=== PATIENT | female | born 1970 | race Caucasian/White ===

== ENCOUNTER 2019-12-01 15:30 | Outpatient (RCR) | payer OTHER, SELFPAY | END 2020-01-02 10:37 | disposition home or self-care (01) | LOC: PT.CARL 15:30 | PROVIDERS: PCP Internal Medicine Adolescent Medicine; Visit Provider Nurse Practitioner Family | DX: M54.16 Radiculopathy, lumbar region (principal) | CPT/HCPCS: 97010; 97014; 97110; 97140; 97163; G0283 ==

== ENCOUNTER 2022-07-02 13:00 | Outpatient (RCR) | payer OTHER, SELFPAY | END 2022-07-31 09:52 | disposition home or self-care (01) | LOC: PT.CARL 13:00 | PROVIDERS: PCP Internal Medicine Adolescent Medicine; Visit Provider Orthopaedic Surgery | DX: S60.212A Contusion of left wrist, initial encounter (principal); M66.242 Spontaneous rupture of extensor tendons, left hand; M25.532 Pain in left wrist | CPT/HCPCS: 97010; 97014; 97033; 97110; 97163; 97164; G0283 ==

== ENCOUNTER 2023-10-24 13:05 | Emergency (ER) | payer OTHER, SELFPAY ==
[2023-10-24 13:08] VITALS: BP 147/84; PULSE 74; RESP 16; TEMP 36.9; O2SAT 100; BMI 36.9
--- NOTE | 2023-10-24 13:16 | XR_ITS ---
PROCEDURE INFORMATION: Exam: XR Left Hand Exam date and time: 10/24/2023 1:16 PM Age: 52 years old Clinical indication: Pain; Hand; Left; Additional info: Injury TECHNIQUE: Imaging protocol: Radiologic exam of the left hand. Views: 1 or 2 views. COMPARISON: CR XR FOREARM LT 2V 10/24/2023 1:16 PM FINDINGS: Bones/joints: Status post ORIF distal radius. Hardware appears intact. Soft tissues: Normal. IMPRESSION: Intact ORIF. No evidence of acute injury or hardware failure.
--- NOTE | 2023-10-24 13:16 | XR_ITS ---
PROCEDURE INFORMATION: Exam: XR Left Forearm Exam date and time: 10/24/2023 1:16 PM Age: 52 years old Clinical indication: Pain; Lower or forearm; Left; Additional info: Injury TECHNIQUE: Imaging protocol: Radiologic exam of the left forearm. Views: 2 views. COMPARISON: CR XR HAND LT 2V 10/24/2023 1:16 PM FINDINGS: Bones/joints: Status post ORIF distal radius. Hardware appears intact. Soft tissues: Normal. IMPRESSION: Intact ORIF. No evidence of acute injury or hardware failure.
--- NOTE | 2023-10-24 13:26 | ED_ITS ---
Discharge Plan Disposition Patient Disposition: Home, Self-Care Condition: Good Prescriptions Prescriptions: New prednisone 20 mg tablet 40 mg PO DAILY 5 Days Qty: 10 0RF Referrals Follow up/Referrals: Taqueria Spencer DO [Staff Physician] - See instructions (L wrist) Provider,Referral, [Referring] - See instructions Activity Restrictions/Add. Instructions Additional Instructions/Restrictions: You were evaluated in the ER for left wrist pain. You do not have any bony injury. You have been provided a removable splint, you can take this off to shower or bathe, otherwise wear it for support. Dr. Rsoas office will contact you for an appointment. Follow-up with them as directed for reevaluation. Take the prescribed steroids as directed for the next 5 days. Continue taking all o ther home medications as previously prescribed. Also make an appointment to follow-up with your primary care physician. Return to the ER with any new, worsening, or otherwise concerning symptoms Clinical Impressions Clinical Impression: Left wrist pain Discharge ED Provider: Agatha Hunt Adult HPI General Chief complaint: PAIN Stated complaint: AO 10/24/23 1215 Injury left Hand,wrist,fingers Time Seen by Provider: 10/24/23 13:10 Mode of Arrival: Ambulatory Source of Information: Patient Limitations: No Limitations Description of Symptoms (Recalled from ER Triage Doc. by RN): pt presents to ED c/o left wrist/hand pain after injury that happened this date. 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 History of Present Illness HPI narrative: This 52-year-old female with a history of hypertension and migraines presents to the ER with concerns of left wrist pain and hand pain. 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 She does have history of prior orthopedic surgery on the left wrist. Patient states she has not taken anything for pain. She endorses slightly decreased sensation at the tip of her left ring finger but otherwise normal sensation throughout. She is able to start making a fist but cannot fully close her hand at this time secondary to pain Related Data Previous Rx's Medication Instructions Recorded prednisone 20 mg tablet 40 mg PO DAILY 5 days #10 tabs 10/24/23 Allergies Allergy/AdvReac Type Severity Reaction Status Date / Time ciprofloxacin [From Cipro] Allergy Verified 10/24/23 13:17 vancomycin Allergy Verified 10/24/23 13:17 [facility] Disclaimer: The information contained in this section may have been updated after the patient was seen, as this information can be updated by other users. Social History Smoking Status: Current every day smoker alcohol intake: never current occupational status: other Travel in the last 8 weeks: None ROS Obtained: Yes All systems reviewed & no additional complaints except as documented Constitutional Constitutional: Denies chills, Denies fever(s), Denies headache(s) and Denies weakness Eyes Eyes: Denies change in vision ENT Ears, Nose, Mouth, and Throat: Denies dizziness, Denies headache(s), Denies nasal congestion and Denies sore throat Cardiovascular Cardiovascular: Denies chest pain, Denies dyspnea and Denies leg edema Respiratory Respiratory: Denies cough and Denies dyspnea Gastrointestinal Gastrointestingal: Denies constipation, diarrhea, nausea or vomiting Genitourinary Female Genitourinary: Denies dysuria Musculoskeletal Musculoskeletal: Reports arthralgias, Denies myalgias, Reports numbness and Denies tingling Integumentary/Breasts Skin/Breast: Denies change in pigmentation Neurologic Neurologic: Denies dizziness, Denies headache(s), Reports numbness, Denies tingling and Denies weakness Physical Exam General General appearance: alert and in no apparent distress Head Head exam: atraumatic and normocephalic Eye Eye exam: Present PERRL and EOMI ENT ENT exam: Present mucous membranes moist Neck Neck exam: Present normal inspection and full ROM Chest Chest inspection: Present symmetric chest wall rise Respiratory Respiratory exam: Absent respiratory distress or stridor Cardiovascular Cardiovascular exam: Present regular rate and normal rhythm Extremities Exam Extremities exam: Present tenderness (Tenderness to palpation of the left wrist and left fingers on the palmar aspect, there is bony protrusion on the ulnar aspect of the wrist with palpable ulnar pulse, brisk capillary refill, neurovascularly intact distally) and other (Patient is able to start closing her hand into a fist but not able to fully close it, sensation intact throughout though slightly diminished at the tip of the left ring finger) Neurological Exam Neurological exam: Present alert and oriented X3 Psychiatric Psychiatric exam: Present normal affect and normal mood Skin Skin exam: Present warm and dry Medical Decision Making Frank Inquiry Pt receiving controlled substance: No Vital Signs: 10/24/23 13:08 10/24/23 13:54 Temperature 98.4 F Temperature Source Oral Pulse Rate 75 Pulse Rate [Right] 74 Respiratory Rate 16 18 Blood Pressure 131/86 Blood Pressure [Right Arm] 147/84 H Blood Pressure Mean 111 Blood Pressure Mean [Right Arm] 105 Blood Pressure Source [Right Arm] Automatic Cuff Blood Pressure Position [Right Arm] Sitting 02 Sat by Pulse Oximetry 100 99 Oxygen Delivery Method Room Air Orders (Tests/Meds): ED MEDICATIONS Discontinued Medications Generic Name Dose Route Start Last Admin Trade Name Edith PRN Reason Stop Dose Admin Acetaminophen 1,000 mg 10/24/23 13:31 10/24/23 13:33 Acetaminophen 500mg Tab PO 10/24/23 13:32 1,000 mg ONCE ONE Administration Ibuprofen 600 mg 10/24/23 13:31 10/24/23 13:33 Ibuprofen 600 Mg Tablet PO 10/24/23 13:32 600 mg ONCE ONE Administration ORDERS Category Date Time Status Forearm XR left 2 views [XR forearm LT 2V] Stat Exams 10/24/23 13:16 Completed XR hand LT 2V Stat Exams 10/24/23 13:16 Completed Medical Decision Narrative: In summary, this 52year old female with a history of hypertension and migraine headaches which are comorbidities of current condition and increase her overall morbidity presents to the emergency department today with left hand and wrist pain after an injury while loading tires. On initial evaluation patient is hemodynamically stable, afebrile, she has pain in the left hand and wrist as described in the physical exam that she is grossly neurovascularly intact. Differential diagnosis includes but is not limited to fracture, dislocation, DRUJ disruption, sprain. Based on these concerns, I ordered x-ray imaging of the left upper extremity. Patient received Tylenol, ibuprofen for treatment. X-ray personally interpreted does not demonstrate any acute fracture, intact hardware present. DRUJ appears questionably slightly wide. See radiology read for final interpretation. Given patient's clinical appearance of prominent ulna in the left wrist with pain and questionably widened DRUJ, I called Dr. Spencer and discussed this with him. We reviewed the x-rays together and he believes this is likely sequela of her prior surgery but given she has acute pain recommended a removable volar splint which was provided to the patient. He also recommended steroids for the paresthesias she is having in her left ring finger. He believes this is likely a stretch injury to the median nerve. Patient is comfortable with this plan. She was provided referral to Dr. Spencer for follow-up. I prescribed prednisone burst. Patient was given instructions on symptomatic management, follow up instructions, and return precautions for the emergency department. Patient indicated understanding and was discharged in stable condition. Critical Care Critical Care Time Critical Care Time: No
[2023-10-24] MEDS: ACETAMINOPHEN 500MG TAB 1000 MG PO (13:33)
[2023-10-24] MEDS: IBUPROFEN 600 MG TABLET PO (13:33)
[2023-10-24 13:54] VITALS: BP 131/86; PULSE 75; RESP 18; O2SAT 99
--- NOTE | 2023-10-24 13:54 | PC.NURSE ---
DR RATLIFF SPEAKING WITH DR CASTANO
[2023-10-24 14:06] VITALS: BP 138/93; PULSE 67; RESP 18; TEMP 36.9; O2SAT 98
== END 2023-10-24 14:08 | disposition home or self-care (01) ==
PROVIDERS: Emergency Provider Emergency Medicine; PCP Physician Assistant
DX: M25.532 Pain in left wrist (principal); I10 Essential (primary) hypertension; F17.200 Nicotine dependence, unspecified, uncomplicated; W20.8XXA Other cause of strike by thrown, projected or falling object, initial encounter
CPT/HCPCS: 73090; 73120; 99284

== ENCOUNTER 2023-10-26 11:15 | Emergency (ER) | payer OTHER, SELFPAY ==
--- NOTE | 2023-10-26 11:14 | ECG_ITS ---
APPROVED REPORT Exam: Resting ECG HR:88 bpm ECG Measurements Heart Rate 88 AXES MT 138 P 57 QRSd 93 QRS 46 QT 369 T 46 QTc 414 Conclusion SINUS RHYTHM NORMAL ECG UNCONFIRMED REPORT Electronically signed by : Pernell Gurrola MD 10/27/2023 16:41:45
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
[2023-10-26 11:23] VITALS: BP 131/93; PULSE 82; RESP 20; TEMP 36.8; O2SAT 99; BMI 37.5
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
[2023-10-26 11:36] LABS: Basophils % 0.4 % (0.1-2.0); Eosinophils # 0.2 K/mm3 (0.0-0.4); Eosinophils % 1.9 % (0.1-12.0); Hematocrit 36.3 % (37.0-47.0); Hemoglobin 12.7 g/dL (12.2-16.2); Lymphocytes # 1.9 K/mm3 (0.7-4.5); Lymphocytes % 22.8 % (10-50); Mean Corpuscular HGB Conc 34.9 g/dL (31.8-35.4); Mean Corpuscular Hemoglobin 29.3 pg (27.0-31.2); Mean Corpuscular Volume 83.9 fl (81-99); Mean Platelet Volume 8.7 fl (7.4-10.4); Monocytes # 0.4 K/mm3 (0.1-1.0); Monocytes % 5.1 % (1.7-9.3); Neutrophils # 5.7 K/mm3 (1.8-7.8); Neutrophils % 69.8 % (37.0-80.0); Platelet Count 235 K/mm3 (142-424); Red Blood Count 4.33 M/mm3 (4.20-5.40); Red Cell Distribution Width 15.2 % (11.5-17.5); White Blood Count 8.2 K/mm3 (4.8-10.8)
[2023-10-26] MEDS: MORPHINE 4MG/ML SYRINGE 4 MG IV (11:37)
[2023-10-26] MEDS: ONDANSETRON 4MG/2ML VIAL 4 MG IV (11:37)
[2023-10-26 11:39] VITALS: BP 112/84; PULSE 87; O2SAT 98
[2023-10-26 11:39] LABS: Alanine Aminotransferase 24 U/L (12-78); Albumin Level 4.6 g/dl (3.5-5.0); Albumin/Globulin Ratio 1.4 (1.1-1.8); Alkaline Phosphatase 67 U/L (38-126); Anion Gap 16.6 mEq/L (5-15); Aspartate Amino Transferase 36 U/L (14-36); Bilirubin,Total 1.8 mg/dl (0.2-1.3); Blood Urea Nitrogen 19 mg/dl (7-17); Calcium 9.5 mg/dl (8.4-10.2); Carbon Dioxide 22 mmol/L (22.0-30.0); Chloride 103 mmol/L (98-107); Creatinine Clearance Estimated 103 mL/min (50-200); Estimated Glomerular Filt Rate 65 ml/min (>60); GFR (African American) 79 ML/MIN (>60); Globulin 3.3 g/dL (1.3-3.2); Glucose 121 mg/dl (74-100); Potassium 4.6 mmoL/L (3.5-5.1); Sodium 137 mmol/L (136-145); Total Protein,Serum 7.9 g/dl (6.3-8.2)
[2023-10-26 11:54] LABS: Troponin I < 0.01 ng/ml (0.00-0.034)
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
[2023-10-26] MEDS: SODIUM CHLORIDE 0.9% 10ML SYR (RAD ONLY) 10 ML IV (12:17)
[2023-10-26] MEDS: IOPAMIDOL-370 (76%);100ML BOTTLE 70 ML IV (12:17)
[2023-10-26] MEDS: 0.9 % SODIUM CHLORIDE 50 ML VIAL IV (12:17)
[2023-10-26 12:30] VITALS: BP 109/77; PULSE 85; O2SAT 95
--- NOTE | 2023-10-26 12:57 | PC.NURSE ---
PT AMBULATED TO RESTROOM WITH STANDBY ASSISTANCE VISITORS AT
--- NOTE | 2023-10-26 13:05 | PC.NURSE ---
PT AMBULATED BACK TO ROOM AND IS NOW RESTING IN BED NO NEEDS AT THIS TIME, VISITORS AT [facility]
[2023-10-26] MEDS: diazePAM 5MG TABLET 5 MG PO (13:26)
[2023-10-26] MEDS: KETOROLAC 30MG/ML VIAL 15 MG IV (13:28)
[2023-10-26] MEDS: LIDOCAINE 5% TRANSDERMAL PATCH 1 EACH TP (13:29)
[2023-10-26 13:59] LABS: Troponin I < 0.01 ng/ml (0.00-0.034)
[2023-10-26 14:08] VITALS: BP 128/97; PULSE 92; RESP 20; TEMP 37.1; O2SAT 97
== END 2023-10-26 14:11 | disposition home or self-care (01) ==
PROVIDERS: Emergency Provider Emergency Medicine; PCP Physician Assistant
DX: S20.212A Contusion of left front wall of thorax, initial encounter (principal); R07.9 Chest pain, unspecified; M54.2 Cervicalgia; Z87.891 Personal history of nicotine dependence; V47.5XXA Car driver injured in collision with fixed or stationary object in traffic accident, initial encounter
CPT/HCPCS: 71275; 72125; 72128; 80053; 84484; 85025; 93005; 96374; 96375; 99285; J2405; Q9967

== ENCOUNTER 2023-11-12 11:33 | Emergency (ER) | payer OTHER, SELFPAY ==
[2023-11-12 11:35] VITALS: BP 125/82; PULSE 85; RESP 18; TEMP 36.7; O2SAT 98; BMI 40.4
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
--- NOTE | 2023-11-12 12:14 | XR_ITS ---
FINAL REPORT CLINICAL HISTORY: dyspnea FINDINGS: SINGLE-VIEW CHEST The heart size is normal. The mediastinum is normal. The lungs are clear. There is no pneumothorax. IMPRESSION: No acute cardiopulmonary process. Reviewed, Interpreted and Dictated by Gene Sibley III, MD Transcribed by Roya Renteria Authenticated and [facility]
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
[2023-11-12 12:30] LABS: Basophils % 0.3 % (0.1-2.0); Eosinophils # 0.1 K/mm3 (0.0-0.4); Eosinophils % 1.9 % (0.1-12.0); Hematocrit 34.7 % (37.0-47.0); Hemoglobin 12.3 g/dL (12.2-16.2); Lymphocytes # 2.1 K/mm3 (0.7-4.5); Lymphocytes % 28.7 % (10-50); Mean Corpuscular HGB Conc 35.6 g/dL (31.8-35.4); Mean Corpuscular Hemoglobin 30.3 pg (27.0-31.2); Mean Corpuscular Volume 85.2 fl (81-99); Mean Platelet Volume 8.5 fl (7.4-10.4); Monocytes # 0.3 K/mm3 (0.1-1.0); Monocytes % 4.3 % (1.7-9.3); Neutrophils # 4.7 K/mm3 (1.8-7.8); Neutrophils % 64.8 % (37.0-80.0); Platelet Count 239 K/mm3 (142-424); Red Blood Count 4.08 M/mm3 (4.20-5.40); Red Cell Distribution Width 15.5 % (11.5-17.5); White Blood Count 7.3 K/mm3 (4.8-10.8)
[2023-11-12 12:38] LABS: Alanine Aminotransferase 20 U/L (12-78); Albumin Level 4.4 g/dl (3.5-5.0); Albumin/Globulin Ratio 1.5 (1.1-1.8); Alkaline Phosphatase 82 U/L (38-126); Anion Gap 13.6 mEq/L (5-15); Aspartate Amino Transferase 27 U/L (14-36); Bilirubin,Total 0.8 mg/dl (0.2-1.3); Blood Urea Nitrogen 23 mg/dl (7-17); Calcium 9.5 mg/dl (8.4-10.2); Carbon Dioxide 24 mmol/L (22.0-30.0); Chloride 107 mmol/L (98-107); Creatinine Clearance Estimated 119 mL/min (50-200); Estimated Glomerular Filt Rate 75 ml/min (>60); GFR (African American) 90 ML/MIN (>60); Glucose 119 mg/dl (74-100); Lipase 119 U/L (23-300); Potassium 4.6 mmoL/L (3.5-5.1); Sodium 140 mmol/L (136-145); Total Protein,Serum 7.4 g/dl (6.3-8.2)
[2023-11-12] MEDS: LACTATED RINGERS 1000ML 1,000 ML 999 ML IV (12:39)
[2023-11-12] MEDS: ONDANSETRON 4MG/2ML VIAL 4 MG IV (12:39)
[2023-11-12] MEDS: MORPHINE 4MG/ML SYRINGE 4 MG IV (12:39)
[2023-11-12 12:41] VITALS: BP 115/90; PULSE 81; RESP 20; O2SAT 97
[2023-11-12] MEDS: IOPAMIDOL-370 (76%);100ML BOTTLE 75 ML IV (13:11)
[2023-11-12] MEDS: SODIUM CHLORIDE 0.9% 10ML SYR (RAD ONLY) 10 ML IV (13:11)
[2023-11-12 13:30] VITALS: BP 114/77; PULSE 72; RESP 20; O2SAT 98
[2023-11-12 14:02] VITALS: BP 101/81; PULSE 68; RESP 20; O2SAT 98
[2023-11-12 14:40] VITALS: BP 101/81; PULSE 70; RESP 16; TEMP 36.6; O2SAT 98
== END 2023-11-12 14:42 | disposition home or self-care (01) ==
PROVIDERS: Emergency Provider Student in an Organized Health Care Education/Training Program; PCP Physician Assistant
DX: R10.30 Lower abdominal pain, unspecified (principal); K92.1 Melena; K57.90 Diverticulosis of intestine, part unspecified, without perforation or abscess without bleeding
CPT/HCPCS: 71045; 74177; 80053; 83690; 85025; 96361; 96374; 96375; 99285; J2405; Q9967

== ENCOUNTER 2024-11-19 17:02 | Emergency (ER) | payer OTHER, SELFPAY ==
[2024-11-19 17:04] VITALS: BP 135/84; PULSE 85; RESP 20; TEMP 36.7; O2SAT 96; BMI 36.9
--- NOTE | 2024-11-19 17:15 | ECG_ITS ---
APPROVED REPORT Exam: Resting ECG HR:78 bpm ECG Measurements Heart Rate 78 AXES NV 139 P 50 QRSd 90 QRS 43 QT 386 T 48 QTc 419 Conclusion SINUS RHYTHM NORMAL ECG UNCONFIRMED REPORT Electronically signed by : LIVE GONCALVES, 11/20/2024 04:38:39
--- NOTE | 2024-11-19 17:29 | XR_ITS ---
PROCEDURE INFORMATION: Exam: XR Right Wrist Exam date and time: 11/19/2024 5:37 PM Age: 54 years old Clinical indication: Injury or trauma; Fall; Blunt trauma (contusions or hematomas); Wrist; Right; Additional info: Fall, injury TECHNIQUE: Imaging protocol: Radiologic exam of the right wrist. Views: 3 or more views. COMPARISON: CR XR HAND RT MIN 3V 11/19/2024 5:37 PM FINDINGS: Bones/joints: No acute fracture or malalignment. Possible chronic posttraumatic changes of the distal 5th metacarpal. Accessory ossicle adjacent to the ulnar styloid versus sequela from remote trauma. Soft tissues: Unremarkable. IMPRESSION: No acute findings.
--- NOTE | 2024-11-19 17:29 | XR_ITS ---
PROCEDURE INFORMATION: Exam: XR Right Hand Exam date and time: 11/19/2024 5:37 PM Age: 54 years old Clinical indication: Injury or trauma; Fall; Blunt trauma (contusions or hematomas); Hand; Right; Additional info: Fall, injury TECHNIQUE: Imaging protocol: Radiologic exam of the right hand. Views: 3 or more views. COMPARISON: CR XR HAND RT MIN 3V 11/19/2024 5:37 PM FINDINGS: Bones/joints: Osteoarthritis. Small fragmented osteophyte versus dorsal plate fracture of the long finger distal phalanx base. Possible chronic posttraumatic changes of the distal 5th metacarpal. Accessory ossicle adjacent to the ulnar styloid versus sequela from remote trauma. Soft tissues: Unremarkable. IMPRESSION: Small fragmented osteophyte versus dorsal plate fracture of the long finger distal phalanx base. Correlate with physical exam.
--- NOTE | 2024-11-19 17:31 | ED_ITS ---
Discharge Plan Disposition Patient Disposition: Home, Self-Care Prescriptions Prescriptions: No Action metoprolol succinate 50 mg tablet extended release 24 hr 50 mg PO DAILY sumatriptan succinate 100 mg tablet 100 mg PO NEEDED PRN (Reason: Headache) Patient Comments: TAKE 1 TABLET AT START OF HEADACHE. MAY TAKE ANOTHER TABLET IN 2 HOURS IF NEEDED. DO NOT TAKE MORE THAN 2 TABLETS IN 24 HOURS. amlodipine 5 mg tablet 5 mg PO DAILY Patient Comments: TAKE 1 TABLET 1 TIME EACH DAY aspirin 81 mg tablet,delayed release (DR/EC) 81 mg PO DAILY Patient Comments: TAKE 1 TABLET 1 TIME EACH DAY ropinirole 0.5 mg tablet 0.5 mg PO HS lisinopril-hydrochlorothiazide 20-25 mg tablet 1 tab PO DAILY hydroxyzine HCl 25 mg tablet 25 mg PO TID Patient Comments: TAKE 1 TABLET 3 TIMES EACH DAY NEEDED Referrals Follow up/Referrals: Gamal Sheppard MD [Staff Physician] - See instructions Mindy Brandon PA [Primary Care Provider] - See instructions Taqueria Spencer DO [Staff Physician] - See instructions Activity Restrictions/Add. Instructions Additional Instructions/Restrictions: Please follow-up with cardiology for further evaluation of your heart from a structural and electrical standpoint given your near passing out episode. Additionally have them or your primary care doctor recheck your kidney function within the next few days as it was mildly elevated likely in response to some dehydration. No evidence of any significant fracture or dislocation on your wrist x-rays. Please wear your Velcro splint as needed you may also follow-up with Dr. Spencer if you continue to have symptoms beyond 1 to 2 weeks. Clinical Impressions Clinical Impression: Right wrist sprain, Near syncope, Hypomagnesemia, AMA (acute kidney injury) Instructions Patient Instructions: DI for Syncope in Adults (Fainting), DI for Syncope in Children (Fainting) Print Language Print Language: Occitan Discharge ED Provider: Anita Wilkinson General Adult HPI General Chief complaint: Syncope Stated complaint: AO 11-19 passed out hurt arm and hand Right side Time Seen by Provider: 11/19/24 17:17 Mode of Arrival: Ambulatory Source of Information: Patient Limitations: No Limitations Description of Symptoms (Recalled from ER Triage Doc. by RN): pt got dizzy and reached out to catch herself and now has right wrist pain and left elbow pain, landed on concrete steps, did not hit head or lose consciousness, takes a daily baby ASA. pt is alox4 upon triage History of Present Illness HPI narrative: Patient is a 54-year-old presenting today with primarily a right wrist/hand injury after near syncopal episode. She states that she was lightheaded over the last 24 hours send had a near passing out episode where she fell onto her right wrist. Pain is from historical standpoint at the distal aspect of the ulnar side of her forearm. Denies any chest pain shortness of breath neurologic complaints etc. Related Data Home Medications ?Medication ?Instructions ?Recorded ?Confirmed amlodipine 5 mg tablet 5 mg PO DAILY 11/19/24 11/19/24 aspirin 81 mg tablet,delayed 81 mg PO DAILY 11/19/24 11/19/24 release hydroxyzine HCl 25 mg tablet 25 mg PO TID 11/19/24 11/19/24 lisinopril 20 1 tab PO DAILY 11/19/24 11/19/24 mg-hydrochlorothiazide 25 mg tablet metoprolol succinate 50 mg 50 mg PO DAILY 11/19/24 11/19/24 tablet,extended release 24 hr ropinirole 0.5 mg tablet 0.5 mg PO HS 11/19/24 11/19/24 sumatriptan succinate 100 mg tablet 100 mg PO NEEDED PRN Headache 11/19/24 11/19/24 Allergies Allergy/AdvReac Type Severity Reaction Status Date / Time ciprofloxacin (From Cipro) Allergy Hives Verified 11/19/24 18:06 vancomycin Allergy Hives Verified 11/19/24 18:[address] [facility] Disclaimer: The information contained in this section may have been updated after the patient was seen, as this information can be updated by other users. Social History Smoking Status: Current every day smoker alcohol intake: never current occupational status: other Travel in the last 8 weeks: None Have you lived/traveled outside US in past 30 days?: No Contact w/someone who lives/traveled outside US past 30 days?: No Exposure to someone with infectious disease in past 14 days?: No Do you have a fever (greater than 100.4 F or 38 C)?: No Have you tested positive for COVID-19: No Exposed to someone with COVID-19 in past 14 days?: No Do you have a sore throat?: No Do you have a cough?: No Do you have any weakness?: No Do you have any diarrhea?: No Are you experiencing any unusual bleeding?: No Do you have any muscle aches/pain?: No Do you have any abdominal pain?: No Are you experiencing loss of taste or smell?: No ROS Obtained: Yes All systems reviewed & no additional complaints except as documented Physical Exam General General appearance: alert and in no apparent distress Respiratory Respiratory exam: Present normal lung sounds bilaterally Cardiovascular Cardiovascular exam: Present regular rate Extremities Exam Extremities exam: Present other (Distal right forearm tenderness over the ulna at the junction of the hand and the distal forearm otherwise no significant tenderness soft tissue swelling etc. neurovascular intact) Neurological Exam Neurological exam: Present alert, oriented X3, CN II-XII intact and normal gait; Absent motor sensory deficit Medical Decision Making Medical Records Screening: Per USPSTF and CDC recommendations, given the prevalence of disease in our region, it is our hospital?s policy to screen for HIV and viral Hepatitis for all patients aged 18 and over and those with ongoing risk factors. Frank Inquiry Pt receiving controlled substance: No Vital Signs: 11/19/24 17:04 11/19/24 17:36 11/19/24 18:00 Temperature 98.0 F Temperature Source Oral Pulse Rate 85 73 Pulse Rate [Left Radial] 85 Respiratory Rate 20 22 17 Blood Pressure 116/77 109/77 L Blood Pressure [Right Arm] 135/84 Blood Pressure Mean [Right Arm] 101 02 Sat by Pulse Oximetry 96 100 99 Oxygen Delivery Method Room Air Lab Data Lab results reviewed: Yes I reviewed the patient's lab results. Lab Results 11/19/24 17:30: WBC 8.7, RBC 4.13 L, Hgb 11.7 L, Hct 33.5 L, MCV 81.1, MCH 28.3, MCHC 34.9, RDW 14.5, Plt Count 257, MPV 10.9 H, Neut % (Auto) 56.6, Lymph % (Auto) 37.6, [place] % (Auto) 4.4, Eos % (Auto) 0.9, Baso % (Auto) 0.2, Neut # (Auto) 4.9, Lymph # (Auto) 3.3, [place] # (Auto) 0.4, Eos # (Auto) 0.1, Baso # (Auto) 0.0, Sodium 141, Potassium 3.5, Chloride 105, Carbon Dioxide 27, Anion Gap 12.5, BUN 21 H, Creatinine 1.40 H, Estimated Creat Clear 61, Estimated GFR 39 L, Est GFR ( Amer) 47 L, Glucose 111 H, Calcium 9.3, Magnesium 1.5 L, Total Bilirubin 0.9, AST 22, ALT 17, Alkaline Phosphatase 88, Troponin I < 0.01, Total Protein 7.7, Albumin 4.7, Globulin 3.0, Albumin/Globulin Ratio 1.6 11/19/24 17:30 11/19/24 17:30 Orders (Tests/Meds): ED MEDICATIONS Generic Name Dose Route Start Last Admin Trade Name Freq PRN Reason Stop Dose Admin Magnesium Sulfate 2 gm in 50 mls @ 50 mls/hr 11/19/24 18:27 11/19/24 18:40 Magnesium Sulfate 2gm/50ml Premix IV 11/19/24 19:26 50 mls/hr ONCE ONE Administration Discontinued Medications Generic Name Dose Route Start Last Admin Trade Name Freq PRN Reason Stop Dose Admin Sodium Chloride 1,000 mls @ 999 mls/hr 11/19/24 17:30 11/19/24 17:55 Sod Chlor 0.9% 1000ml Bag IV 11/19/24 18:30 999 mls/hr .Q1H1M SIMON Administration Ketorolac Tromethamine 15 mg 11/19/24 17:29 11/19/24 17:55 Ketorolac 30mg/Ml Vial IV 11/19/24 17:30 15 mg ONCE ONE Administration ORDERS Category Date Time Status Hand XR right minimum 3 views [XR hand RT min 3V] Stat Exams 11/19/24 17:29 Taken Wrist XR right minimum 3 views [XR wrist RT min 3V] Exams 11/19/24 17:29 Taken Stat CBC w/Auto Diff [Complete Blood Count Auto Diff] Stat Lab 11/19/24 17:30 Completed CMP [Comprehensive Metabolic Panel] Stat Lab 11/19/24 17:30 Completed Magnesium Stat Lab 11/19/24 17:30 Completed Trop I [Troponin I] Stat Lab 11/19/24 17:30 Completed Troponin I Q3H Lab 11/19/24 20:30 Ordered Troponin I Q3H Lab 11/19/24 23:30 Ordered Medical Decision Narrative: 54-year-old with above history physical primarily being worked up for near syncope. EKG was performed which I personally interpreted which shows a ventricular rate of 78 normal sinus rhythm no acute ischemic changes noted there are some Q waves in the inferior leads which are nonspecific but no ST changes she states that she has had a CT in the past likely what she is referring to. No significant conduction abnormalities noted. From a laboratory standpoint patient does have a mild acute kidney injury with a creatinine of 1.4 baseline of 0.8. She has been given IV fluids I feel that this is appropriate for close outpatient follow-up. She has been advised to have her creatinine rechecked within the next few days. Magnesium was 1.5. This was replaced. It is possible she had an arrhythmia we will have her follow-up with cardiology for Holter or event monitor and possible echo. She has had no ischemic symptoms from historical standpoint. Regarding her wrist there was an x-ray performed of her wrist and hand which I personally interpreted which shows no acute fractures or dislocation. There is a slight irregularity at the distal aspect of the ulnar styloid which I feel is a chronic abnormality not an acute abnormality nonetheless does not require any significant intervention. Volar wrist Velcro splint was placed. Patient will follow-up with Dr. Spencer if she is having persistent pain and symptoms beyond 1 to 2 weeks. Specifically patient is aware of her mild renal insufficiency and close outpatient follow-up needed. Hospitalization was considered but with close follow-up as not indicated at the moment. She is aware of this and agreeable to this plan. Patient was discharged in stable condition. Critical Care Critical Care Time Critical Care Time: No
[2024-11-19 17:36] VITALS: BP 116/77; PULSE 85; RESP 22; O2SAT 100
[2024-11-19 17:55] LABS: Albumin Level 4.7 g/dl (3.5-5.0); Chloride 105 mmol/L (98-107); Sodium 141 mmol/L (136-145)
[2024-11-19] MEDS: KETOROLAC 30MG/ML VIAL 15 MG IV (17:55)
[2024-11-19] MEDS: 0.9 % SODIUM CHLORIDE 1000ML 1,000 ML 999 ML IV (17:55)
[2024-11-19 17:56] LABS: Potassium 3.5 mmoL/L (3.5-5.1)
[2024-11-19 17:58] LABS: Alanine Aminotransferase 17 U/L (12-78); Albumin/Globulin Ratio 1.6 (1.1-1.8); Alkaline Phosphatase 88 U/L (38-126); Anion Gap 12.5 mEq/L (5-15); Aspartate Amino Transferase 22 U/L (14-36); Bilirubin,Total 0.9 mg/dl (0.2-1.3); Blood Urea Nitrogen 21 mg/dl (7-17); Calcium 9.3 mg/dl (8.4-10.2); Carbon Dioxide 27 mmol/L (22.0-30.0); Creatinine Clearance Estimated 61 mL/min (50-200); Estimated Glomerular Filt Rate 39 ml/min (>60); GFR (African American) 47 ML/MIN (>60); Glucose 111 mg/dl (74-100); Total Protein,Serum 7.7 g/dl (6.3-8.2)
[2024-11-19 18:00] VITALS: BP 109/77; PULSE 73; RESP 17; O2SAT 99
[2024-11-19 18:05] LABS: Basophils % 0.2 % (0.1-2.0); Eosinophils # 0.1 K/mm3 (0.0-0.4); Eosinophils % 0.9 % (0.1-12.0); Hematocrit 33.5 % (37.0-47.0); Hemoglobin 11.7 g/dL (12.2-16.2); Lymphocytes # 3.3 K/mm3 (0.7-4.5); Lymphocytes % 37.6 % (10-50); Mean Corpuscular HGB Conc 34.9 g/dL (31.8-35.4); Mean Corpuscular Hemoglobin 28.3 pg (27.0-31.2); Mean Corpuscular Volume 81.1 fl (81-99); Mean Platelet Volume 10.9 fl (7.4-10.4); Monocytes # 0.4 K/mm3 (0.1-1.0); Monocytes % 4.4 % (1.7-9.3); Neutrophils # 4.9 K/mm3 (1.8-7.8); Neutrophils % 56.6 % (37.0-80.0); Platelet Count 257 K/mm3 (142-424); Red Blood Count 4.13 M/mm3 (4.20-5.40); Red Cell Distribution Width 14.5 % (11.5-17.5); White Blood Count 8.7 K/mm3 (4.8-10.8)
[2024-11-19 18:15] LABS: Magnesium 1.5 mg/dl (1.6-2.3)
[2024-11-19 18:22] LABS: Troponin I < 0.01 ng/ml (0.00-0.034)
--- NOTE | 2024-11-19 18:28 | PC.NURSE ---
1725- Placed on cardiac, BP, and SpO2 monitoring. 1730- PIV placed in LAC, labs collected, labeled at bedside, sent for analysis. 1735- To bathroom via wheelchair for UA. 1800- Hourly rounding completed, no needs expressed at this time. Velcro splint applied to right wrist. Positive PMS post application.
[2024-11-19] MEDS: MAGNESIUM SULFATE IN WATER 2 GM/50 ML PIGGYBACK IV (18:40)
[2024-11-19 18:42] VITALS: BP 134/82; PULSE 67; RESP 19; O2SAT 96
--- NOTE | 2024-11-19 19:00 | PC.NURSE ---
1855- Hourly rounding completed. Awaiting discharge when meds and fluids are complete.
--- NOTE | 2024-11-19 19:10 | PC.NURSE ---
Rounding complete; waiting for IV fluids to finish
[2024-11-19 19:12] VITALS: BP 116/72; PULSE 85; RESP 16; TEMP 36.9; O2SAT 98
== END 2024-11-19 19:13 | disposition home or self-care (01) ==
PROVIDERS: Emergency Provider Student in an Organized Health Care Education/Training Program; PCP Physician Assistant
DX: N17.9 Acute kidney failure, unspecified (principal); E83.42 Hypomagnesemia; S63.501A Unspecified sprain of right wrist, initial encounter; R42 Dizziness and giddiness; R55 Syncope and collapse; M25.531 Pain in right wrist; M25.521 Pain in right elbow; Z72.0 Tobacco use; W18.39XA Other fall on same level, initial encounter; Y93.89 Activity, other specified; Y92.9 Unspecified place or not applicable
CPT/HCPCS: 73110; 73130; 80053; 83735; 84484; 85025; 93005; 96361; 96365; 96374; 99284; J1885; J3475; J7030

== ENCOUNTER 2025-04-19 20:54 | Emergency (ER) | payer OTHER, SELFPAY ==
--- OUTSIDE RECORDS SUMMARY | 2023-12-04 05:30 | XMS_ITS ---
Author Organization [facility] Address [address] [facility] [place] [address] Care Team Providers Care Monitor And Storage Bin Tender Name Role Phone Genia Lynn Primary Care Provider REASON FOR VISIT Vivitrol Inj Encounters Encounter Location Date Provider Diagnosis [address] [address] 12/04/2023 Genia Lynn Plan Of Treatment No Information Progress Notes * aSmara LEALDOB:[birth year] (54 yo F)Acc No.[id number]:12/04/2023 Patient: Samara TEE Provider: Tahira Lynn APRN :1970 A ge:53 Y S ex:Female Date:12/04/2023 Phone: Address:[address] [facility] Subjective: * Chief Complaints: * 1 . Vivitrol Inj. * Medical History: Objective: * Vitals: Assessment: Plan: * Treatment: * Images: Billing Information: * Visit Code: * Procedure Codes: * Electronic signature of Satya Lynn APRN on 04/19/2025 at 08:59 PM EDT Sign off status: Pending Visit Status: C ANC (Cancelled) * Provider: Tahira Lynn APRN Date: 12/04/2023 Generated for Joselyn boyce/Stalin/eTransmitting on: 04/19/2025 08:59 PM EDT
--- OUTSIDE RECORDS SUMMARY | 2023-12-18 06:00 | XMS_ITS | Continuity of Care Document ---
Author Organization [facility] Address [address] [place] [address] Phone Care Team Providers Care Clinical Project Assistant Name Role Phone Kendall Loya APRN Unavailable Unavailable Advance Directives Directive Yes / No Effective Date File Name No Information Encounters Encounter Description Practice Location Reason(s) For Visit Diagnoses Date Provider [facility], [address] [place] [address], [id number], [place] tel:[phone] [facility] MAT Follow-up (chief complaint) No Information 2023 Vincenzo Argueta. [address] [place] [address], [id number], [place]. tel:[phone] Family History Family Member Type Diagnosis Age At Onset No Information Payers Payer name Insurance type Covered constitution party ID Authoriza tion(s) No Information Social History Type Description Quantity Date Captured Comments Alcohol Use Details Unknown Caffeine Use Details Unknown Tobacco Use Status No Information Smoking Status No Information Sex Female Chief Complaint And Reason For Visit From encounter dated '12/18/2023 10:00'. MAT Follow-up (chief complaint) Plan Of Treatment Date Type Action Status Goal Depression screening. Due on due Goal FIT-DNA. Due on due Goal FOBT. Due on due Goal PAP. Due on due Goal Mammogram. Due on due Goal Colonoscopy. Due on 024 due Goal Sigmoidoscopy. Due on due Goal Preventive Visit. Due on Nov due History Of Present Illness Encounter Date Complaint History Of Prese nt Illness MAT Follow-up Instructions Date Instruction Additional Infor mation No Information Assessments Type Assessment Date No Information
--- OUTSIDE RECORDS SUMMARY | 2023-12-18 06:00 | XMS_ITS ---
Author Organization [facility] Address [address] [facility] [place] [address] Care Team Providers Care Cargo Mate Name Role Phone Genia Lynn Primary Care Provider REASON FOR VISIT Vivitrol INj Encounters Encounter Location Date Provider Diagnosis [address] [address] 12/18/2023 Genia Lynn Plan Of Treatment No Information Progress Notes * Samara LEALDOB:[birth year] (54 yo F)Acc No.[id number]:12/18/2023 Patient: Samara TEE Provider: Tahira Lynn APRN :1970 A ge:53 Y S ex:Female Date:12/18/2023 Phone: Address:[address] [facility] Subjective: * Chief Complaints: * 1 . Vivitrol INj. * Medical History: Objective: * Vitals: Assessment: Plan: * Treatment: * Images: Billing Information: * Visit Code: * Procedure Codes: * Electronic signature of Satya Lynn APRN on 04/19/2025 at 09:00 PM EDT Sign off status: Pending Visit Status: C ANC (Cancelled) * Provider: Tahira Lynn APRN Date: 12/18/2023 Generated for Joselyn boyce/Stalin/eTransmitting on: 04/19/2025 09:00 PM EDT
--- OUTSIDE RECORDS SUMMARY | 2024-01-01 05:15 | XMS_ITS ---
Author Organization [facility] Address [address] [facility] [place] [address] Care Team Providers Care Assembler Mechanical Ordnance Name Role Phone Genia Lynn Primary Care Provider [phone] REASON FOR VISIT Vivitrol Inj Encounters Encounter Location Date Provider Diagnosis [address] [address] 01/01/2024 Genia Lynn Plan Of Treatment No Information Progress Notes * Samara LEALDOB:[birth year] (54 yo F)Acc No.[id number]:01/01/2024 Patient: Samara TEE Provider: Tahira Lynn APRN :1970 A ge:53 Y S ex:Female Date:01/01/2024 Phone: Address:[address] [facility] Subjective: * Chief Complaints: * 1 . Vivitrol Inj. * Medical History: Objective: * Vitals: Assessment: Plan: * Treatment: * Images: Billing Information: * Visit Code: * Procedure Codes: * Electronic signature of Satya Lynn APRN on 04/19/2025 at 09:00 PM EDT Sign off status: Pending Visit Status: C ANC (Cancelled) * Provider: Tahira Lynn APRN Date: 01/01/2024 Generated for Joselyn boyce/Stalin/eTransmitting on: 04/19/2025 09:00 PM EDT
--- OUTSIDE RECORDS SUMMARY | 2025-02-23 09:36 | XMS_ITS | Encounter Summary ---
[facility] Address [address] [place] [address] Care Team Providers Care Skating Rink Manager Name Role Phone Mindy Brandon Primary Care Provider [phone] Reason for Referral * MRI/CAT/PET Scan (Routine) - Closed Specialty Diagnoses / Procedures Referred By Ovidio ling Referred To Contact Radiology Diagnoses Precordial chest pain Shortness of breath Procedures CT Angiogram Coronary Arabella Davey APRN [address] [place] [address] Phone: tel: fax: [address] [address] Phone: tel: fax: Referral ID Status Reason Start Date Expiration Date Visits Re quested Visits Authorized [id number] Closed 01/16/2025 04/17/2026 1 1 Reason for Visit * MRI/CAT/PET Scan (Routine) - Closed Specialty Diagnoses / Procedures Referred By Ovidio ling Referred To Contact Radiology Diagnoses Precordial chest pain Shortness of breath Procedures CT Angiogram Coronary Arabella Davey APRN [address] [place] [address] Phone: tel: fax: [address] [place] [address] Phone: tel: fax: Referral ID Status Reason Start Date Expiration Date Visits Re quested Visits Authorized [id number] Closed 01/16/2025 04/17/2026 1 1 Encounter Details Date Type Department Care Team (Latest Contact Info) Description 02/23/2025 9:36 AM EDT - 02/23/2025 11:59 PM EDT Hospital Encounter [facility] [address] [facility] [address] [place] [address] Precordial chest pain; Shortness of breath Discharge Disposition: Home or Self Care Social History Tobacco Use Types Packs/Day Years Used Date Smoking Tobacco: Every Day Cigarettes Passive Smoke Exposure: Current Smokeless Tobacco: Never Alcohol Use Standard Drinks/Week Comments Never 0 (1 standard drink = 0.6 oz pur e alcohol) Comments No Sex and Gender Information Value Date Recorded Sex Assigned at Not on file Legal Sex Female 6:13 PM EST Gender Identity Not on file Sexual Orientation Not on file documented as of this encounter Last Filed Vital Signs Vital Sign Reading Time Taken Comments Blood Pressure 121/88 02/23/2025 11:30 AM EDT Pulse 65 02/23/2025 10:24 AM EDT Temperature 36.7 C (98 F) 02/23/2025 10:24 AM EDT Respiratory Rate 21 02/23/2025 10:24 AM EDT Oxygen Saturation 97% 02/23/2025 10:24 AM EDT Inhaled Oxygen Concentration - - Weight 91.7 kg (202 lb 4.4 oz) 02/23/2025 10:24 AM EDT Height 152.4 cm (5') 02/23/2025 10:24 AM EDT Body Mass Index 39.5 02/23/2025 10:24 AM EDT documented in this encounter Discharge Instructions * Discharge Instructions* Kim Sims RN - 02/23/2025 10:18 AM EDT FORCE FLUIDS TODAY AND TOMORROW * Attachments The following attachments cannot be sent through Care Everywhere. * Cardiac CT Angiogram (Burundian) documented in this encounter Medications at Time of Discharge amLODIPine (NORVASC) 5 MG tablet Take 1 tablet by mouth Daily. aspirin 81 MG EC tablet Take 1 tablet by mouth Daily. hydrOXYzine (ATARAX) 25 MG tablet Take 1 tablet by mouth Every 4 (Four) Hours As Needed. lisinopril-hydro chlorothiazide (PRINZIDE,ZESTOR ETIC) 20-25 MG per tablet Take 1 tablet by mouth Daily. metoprolol succinate XL (TOPROL-XL) 50 MG 24 hr tablet Take 1 tablet by mouth Daily. rOPINIRole (REQUIP) 0.5 MG tablet Take 1 tablet by mouth 3 (Three) Times a Day. tiZANidine (ZANAFLEX) 4 MG tablet Take 1 tablet by mouth Every 6 (Six) Hours As Needed. Ubrelvy 50 MG tablet Take 1 tablet by mouth As Needed. Ventolin HFA 108 (90 Base) MCG/ACT inhaler Inhale 2 puffs Every 4 (Four) Hours As Needed for Shortness of Air or Wheezing. busPIRone (BUSPAR) 10 MG tablet Take 1 tablet by mouth 2 (Two) Times a Day. 12/27/2024 methocarbamol (ROBAXIN) 750 MG tablet Take 1 tablet by mouth As Needed. 01/05/2025 metoprolol tartrate (LOPRESSOR) 100 MG tabletIndication s:Precordial chest pain,Shortness of breath Take 100 mg at Bedtime the Night Before Coronary CTA Appointment and In the Morning 1 Hour Prior to Coronary CTA Appointment. Do not take if heart rate less than 60. 2 tablet 01/16/2025 venlafaxine XR (EFFEXOR-XR) 37.5 MG 24 hr capsule Take 1 capsule by mouth Daily. 12/27/2024 documented as of this encounter Plan of Treatment Upcoming Encounters Date Type Department Care Team (Late st Contact Info) Description 05/31/2025 3:00 PM EDT Office Visit [facility] [address] [address] Mima Calderon MD [address] [id number] documented as of this encounter Procedures Procedure Name Priority Date/Time Associated Diagnosis Comments CT ANGIOGRAM CORONARY Routine 02/23/2025 11:20 AM EDT Precordial chest pain Shortness of breath documented in this encounter Results * CT Angiogram Coronary (02/23/2025 11:20 AM EDT) Anatomical Region Laterality Modality Vascular, Chest N/A Computed Tomogra phy 02/24/2025 11:1 7 AM EDT Impressions 02/24/2025 11:18 AM EDT Impression: Small hiatal hernia. Please refer to CT Angiogram Coronary Cardiology Interp report for information on cardiac structures. Electronically Signed: Deo Rivera MD 02/24/2025 11:18 AM EDT Workstation ID: [id number] Narrative 02/24/2025 11:[address] ANGIOGRAM CORONARY Date of Exam: 02/23/2025 11:12 AM EDT Indication: . Shortness of air and chest pain Comparison: None available. Technique: Non-contrasted CT images of the chest were performed for calcium scoring purposes followed by CTA images of the chest after the uneventful intravenous administration of 65 mL Isovue-370 . Reconstructed coronal and sagittal images were also obtained. In addition, a 3-D volume rendered image was created for interpretation. Automated exposure control and iterative reconstruction methods were used. Findings: Evaluation of the adjacent lungs is unremarkable. Aorta and pulmonary artery are in caliber. Hiatal hernia. No axillary or mediastinal adenopathy. Limited evaluation of the upper abdomen is unremarkable. No aggressive appearing lytic or sclerotic bone lesions. Procedure Note Deo Rivera MD - 02/24/2025 CT ANGIOGRAM CORONARY Date of Exam: 02/23/2025 11:12 AM EDT Indication: . Shortness of air and chest pain Comparison: None available. Technique: Non-contrasted CT images of the chest were performed forcalcium scoring purposes followed by CTA images of the chest after theuneventful intravenous administration of 65 mL Isovue-370 . Reconstructedcoronal and sagittal images were also obtained. In addition, a 3-D volume rendered image was created forinterpretation. Automated exposure control and iterative reconstructionmethods were used. Findings: Evaluation of the adjacent lungs is unremarkable. Aorta and pulmonaryartery are in caliber. Hiatal hernia. No axillary or mediastinaladenopathy. Limited evaluation of the upper abdomen is unremarkable. Noaggressive appearing lytic or sclerotic bone lesions. IMPRESSION: Impression: Small hiatal hernia. Please refer to CT Angiogram Coronary Cardiology Interp report forinformation on cardiac structures. Electronically Signed: Deo Rivera MD 02/24/2025 11:18 AM EDT Workstation ID: [id number] Arabella Davey SEPARATOR OPERATOR IMG CT ORDERABLES Final Result documented in this encounter Visit Diagnoses Diagnosis Precordial chest pain Precordial pain Shortness of breath documented in this encounter Administered Medications Inactive Administered Medications - up to 3 most recent administrations Medication Order MAR Action Action Date Dose Rate Site iopamidol (ISOVUE-370) 76 % injection 100 mL 100 mL, Intravenous, Once in Imaging, On Shantal 02/23/25 at 1200, For 1 dose Given 02/23/2025 11:20 AM EDT 65 mL nitroglycerin (NITROSTAT) SL tablet 0.8 mg 0.8 mg, Sublingual, Once in Imaging, On Shantal 02/23/25 at 1115, For 1 dose, SBP >100 Administer Immediately Prior to Contrast Injection in CT DO NOT Administer if Phosphodiesterase Inhibitor Taken in Previous 24 Hours or Patient Has History of Severe Aortic Stenosis May administer up to 3 doses per episode. Hold if SBP less than 100.Indications:Precordial chest pain,Shortness of breath Given 02/23/2025 11:14 AM EDT 0.8 mg documented in this encounter Care Teams Skating Rink Manager Relationship Specialty Start Date End Date Mindy Brandon PA [address] [facility] [address] [place] [address] PCP - General Physician Rug Sample Beveler 12/02/24 documented as of this encounter
--- OUTSIDE RECORDS SUMMARY | 2025-02-23 11:29 | XMS_ITS | Encounter Summary ---
Author Organization [facility] Address [address] [place] [address] Care Team Providers Care Grease Rack Worker Name Role Phone Mindy Brandon Primary Care Provider [phone] Encounter Details Date Type Department Care Team (Latest Contact Info) Description 02/23/2025 11:29 AM EDT - 02/23/2025 11:59 PM EDT Hospital Encounter [address] [id number] Precordial chest pain; Shortness of breath Discharge [...] on file documented as of this encounter Medications at Time of Discharge [...] Description 05/31/2025 3:00 PM EDT Office Visit [facility] [address] [place] [address] Mima Calderon MD [address] [place], [place] [address] documented as of this encounter Procedures Procedure Name Priority Date/Time Associated Diagnosis Comments CTA CARDIOLOGY READ CAR Routine 02/23/2025 11:29 AM EDT Precordial chest pain Shortness of breath documented in this encounter Results * CT Angiogram Coronary-Cardiology Interpretation (02/23/2025 11:29 AM EDT) Anatomical Region Laterality Modality Vascular, Chest N/A Computed Tomogra phy Impressions 02/27/2025 2:06 PM EDT Overall there is mild amount of coronary plaque. Minimal (1-24%) 2 vessel disease. CAD RADS 1. There appears to be a narrowing/stenosis versus kink of the left upper pulmonary vein as it empties into the left atrium. Otherwise, pulmonary vein anatomy is normal. No non-atherosclerotic coronary abnormalities. Normal LV systolic function (calculated LVEF 65%). Please refer to the radiology report for information on extra-cardiac structures. RECOMMENDATION: Maximize medical therapy for secondary prevention of atherosclerotic disease. Grading Scale for Stenosis Severity: Category Degree Interpretation CAD-RADS 0 0% (No plaque or stenosis) Absence of CAD CAD-RADS 1 1-24% (Minimal stenosis or plaque w/o stenosis) Minimal non-obstructive CAD CAD-RADS 2 25-49% (Mild stenosis) Mild non-obstructive CAD CAD-RADS 3 50-69% (Moderate stenosis) Moderate stenosis CAD-RADS 4 A - 70-99% stenosis or B - Left main >/= 50% or 3-vessel obstructive (>/=70%) disease Severe stenosis CAD-RADS 5 100% (total occlusion) Total coronary occlusion or sub-total occlusion CAD-RADS N Non-diagnostic study Obstructive CAD cannot be excluded Grading Scale for Plaque [place]: P1 (CAC 1-100) Mild amount of plaque P2 (CAC 101-300) Moderate amount of plaque P3 (CAC 301-999) Severe amount of plaque P4 (CAC > 1000) Extensive amount of plaque Narrative 02/27/2025 2:06 PM EDT Table formatting from the original result was not included. Images from the original result were not included. Minimal to mild two-vessel coronary artery disease. Pulmonary vein anomaly as described below. CORONARY CT ANGIOGRAPHY WITH CALCIUM SCORE CLINICAL HISTORY: typical angina TECHNIQUE: Using a Siemens Force scanner, a preliminary watch dial maker study was obtained, followed by coronary artery calcium protocol. 0.5 mm collimated images were obtained through the coronary arteries. Data were transferred offline for 3D reconstructions using [employer]. CONTRAST: 65 mL iopamidol (ISOVUE-370) ACQUISITION: Retrospective ECG triggered acquisition was used. Heart rate at the time of acquisition was approximately 66 BPM. MEDICATIONS: Metoprolol tartrate 200 mg oral Nitroglycerin 0.8 mg tablet TECHNICAL QUALITY: Good, with minor artifact but good diagnostic quality. FINDINGS: Coronary Artery Calcification Findings: The total calcium score is 6.6 indicating mild (CAC 1-100) calcified plaque in the coronary tree. Left main: 6.6 LAD: 0 LCx: 0 RCA: 0 Angiographic Findings: The coronary arteries are right dominant. Left Main: Large-caliber vessel that bifurcates into the LAD, ramus, and circumflex arteries. There is a small, focal, mildly calcified plaque in the distal left main resulting in a 10-20% luminal narrowing. LAD: Large-caliber vessel which coursed through the interventricular groove toward the apex giving rise to a medium caliber diagonal in the midportion. No significant plaque or stenosis present. Ramus: Large-caliber vessel coursing along the anterolateral wall. No significant plaque or stenosis present. LCx: Large-caliber vessel coursing through the atrioventricular groove giving rise to a small OM1 branch and a large PL OM/OM 2 branch. No significant plaque or stenosis present. RCA: Large-caliber vessel coursing through the atrioventricular groove and terminating in a posterior descending artery. Mild plaque in the distal RCA is present (confirmed by PLAQUE analysis) causing approximately 30% stenosis. Noncoronary Cardiac Findings: Cardiac chambers: Normal in size with no obvious filling defects within the ventricles, atria, or atrial appendages. No stigmata of prior infarction. Cardiac valves: Aortic valve is trileaflet. There is no thickening or calcification in the aortic valve. Minimal calcification of the mitral valve leaflet. Pulmonary arteries: Normal in caliber. No obvious filling defects in the visualized central pulmonary arteri(es) to suggest large central pulmonary emboli. Pulmonary veins: There appears to be a narrowing/stenosis versus kink of the left upper pulmonary vein as it empties into the left atrium. Otherwise, pulmonary vein anatomy is normal. Pericardium: The pericardial contour is preserved with no effusion, thickening, or calcifications. Left ventricle: Calculated LVEF 65%. Aorta: Partially visualized aorta appears to be normal in size and caliber. Images: Arabella Davey APRN IMG CT ORDERABLES Final Result documented in this encounter Visit Diagnoses Diagnosis Precordial chest pain Precordial pain Shortness of breath documented in this encounter Care Teams Grease Rack Worker Relationship Specialty Start Date End Date Mindy Brandon PA [address] [place] [address] [address] [place] [address] PCP - General Physician Mill Feeder 12/02/24 documented as of this encounter
--- OUTSIDE RECORDS SUMMARY | 2025-02-27 15:15 | XMS_ITS | Encounter Summary ---
Author Organization [facility] Address [address] [place] [address] Care Team Providers Care Photographers' Model Name Role Phone Mindy Brandon Primary Care Provider [phone] Reason for Visit * Reason Comments Follow-up Encounter Details Date Type Department Care Team (Late st Contact Info) Description 02/27/2025 3:15 PM EDT Office Visit [facility] [address] [place] [address] Arabella Davey, SUPERMARK[employer] MANAGER [address] [place] [address] Mild CAD (Primary Dx); Precordial chest pain; Shortness of breath Social History Tobacco Use Types Packs/Day Years [...] Sign Reading Time Taken Comments Blood Pressure 130/82 02/27/2025 2:57 PM EDT Pulse 98 02/27/2025 2:57 PM EDT Temperature - - Respiratory Rate - - Oxygen Saturation 96% 02/27/2025 2:57 PM EDT Inhaled Oxygen Concentration - - Weight 93.4 kg (206 lb) 02/27/2025 2:57 PM EDT Height 152.4 cm (5') 02/27/2025 2:57 PM EDT Body Mass Index 40.23 02/27/2025 2:57 PM EDT documented in this encounter Progress Notes * Arabella Davey APRN - 02/27/2025 4:03 PM EDTAssociated Problem(s): Shortness of breath She completed an echocardiogram on 12/27/2024 that revealed an LVEF of 66 to 70% and no significant valvular abnormalities. * Arabella Davey APRN - 02/27/2025 4:03 PM EDTAssociated Problem(s): Precordial chest pain She continues to experience intermittent episodes of chest pain but was recently put on Prilosec for heartburn. I suspect that chest pain is GI related. A small hiatal hernia was also noted on recentCT. * Arabella Davey APRN - 02/27/2025 4:02 PM EDTAssociated Problem(s): Mild CAD She completed a coronary CTA on 02/24/2025 due to ongoing chest pain that revealed a mild amount of coronary plaque. Minimal (1-24%) two-vessel disease. Also noted was what appeared to be a narrowing/stenosis versus kink of the left upper pulmonary vein as it empties into the left atrium. Recommendations include maximizing medical therapy for secondary prevention of atherosclerotic disease. We discussed need for statin medication and she is agreeable. Patient reports that all of her medications need to be sent in by her primary care provider. She will discuss starting a statin medication with her PCP. - Check fasting lipid panel * Arabella Davey APRN - 02/27/2025 3:15 PM EDT Images from the original note were not included. [facility] Provider Note Date: 02/27/2025 Name: Samara Richardson : 1970 PCP: Mindy Brandon PA Chief Complaint Patient presents with ??? Follow-up Subjective History of Present Illness Samara Richardson is a 54 y.o. female who presents today for follow-up on chest pain and recent cardiac testing. Patient initially presented on 12/13/2024 with complaints of chest pain. She has had multiple ER visits due to the chest pain and recurrent vomiting. She has no known cardiac history but has been told previously that she possibly has had an old heart attack (noted on EKG). She completedan echocardiogram on 12/27/2024 that revealed an LVEF of 66 to 70% and no significant valvular abnormalities. Nuclear stress test from 01/09/2025 revealed no evidence of ischemia. Holter monitor from 12/14/2024 revealed a normal monitor study. She completed a coronary CTA on 02/24/2025 due to ongoing chest pain that revealed a mild amount of coronary plaque. Minimal (1-24%) two-vessel disease. Also noted was what appeared to be a narrowing/stenosis versus kink of the left upper pulmonary vein as it empties into the left atrium. Patient continues to experience intermittent episodes of chest pain but was recently put on Prilosec for heartburn. I suspect that chest pain is GI related. She denies any new symptoms at this time. She was previously on a statin medication for hyperlipidemia but is no longer taking it. She is agreeable to restart due to mild CAD noted on coronary CTA. Cardiac history 1. Hypertension 2. Mild CAD 3. Pulmonary vein anomaly Coronary CTA 02/24/2025- IMPRESSION: 1. Overall there is mild amount of coronary plaque. 2. Minimal (1-24%) 2 vessel disease. CAD RADS 1. 3. There appears to be a narrowing/stenosis versus kink of the left upper pulmonary vein as it empties into the left atrium. Otherwise, pulmonary vein anatomy is normal. No non-atherosclerotic coronary abnormalities. 4. Normal LV systolic function (calculated LVEF 65%). Echocardiogram 12/27/2024- LVEF 66 to 70%. Normal RVSP. No significant valvular abnormalities. Nuclear stress test 01/09/2025- no evidence of ischemia Holter monitor 12/14/2024- ?? A normal monitor study. ?? Rare PVCs and PACs, no significant pauses or arrhythmias Allergies Allergen Reactions ??? Adhesive Tape Rash ??? Ciprofloxacin Hives and Rash ??? Vancomycin Rash and Swelling Current Outpatient Medications: ??? amLODIPine (NORVASC) 5 MG tablet, Take 1 tablet by mouth Daily., Disp: , Rfl: ??? aspirin 81 MG EC tablet, Take 1 tablet by mouth Daily., Disp: , Rfl: ??? busPIRone (BUSPAR) 10 MG tablet, Take 1 tablet by mouth 2 (Two) Times a Day., Disp: , Rfl: ??? hydrOXYzine (ATARAX) 25 MG tablet, Take 1 tablet by mouth Every 4 (Four) Hours As Needed., Disp: , Rfl: ??? lisinopril-hydrochlorothiazide (PRINZIDE,ZESTORETIC) 20-25 MG per tablet, Take 1 tablet by mouth Daily., Disp: , Rfl: ??? methocarbamol (ROBAXIN) 750 MG tablet, Take 1 tablet by mouth As Needed., Disp: , Rfl: ??? metoprolol succinate XL (TOPROL-XL) 50 MG 24 hr tablet, Take 1 tablet by mouth Daily., Disp: , Rfl: ??? metoprolol tartrate (LOPRESSOR) 100 MG tablet, Take 100 mg at Bedtime the Night Before CoronaryCTA Appointment and In the Morning 1 Hour Prior to Coronary CTA Appointment. Do not take if heart rate less than 60., Disp: 2 tablet, Rfl: 0 ??? rOPINIRole (REQUIP) 0.5 MG tablet, Take 1 tablet by mouth 3 (Three) Times a Day., Disp: , Rfl: ??? tiZANidine (ZANAFLEX) 4 MG tablet, Take 1 tablet by mouth Every 6 (Six) Hours As Needed., Disp:, Rfl: ??? Ubrelvy 50 MG tablet, Take 1 tablet by mouth As Needed., Disp: , Rfl: ??? venlafaxine XR (EFFEXOR-XR) 37.5 MG 24 hr capsule, Take 1 capsule by mouth Daily., Disp: , Rfl: ??? Ventolin HFA 108 (90 Base) MCG/ACT inhaler, Inhale 2 puffs Every 4 (Four) Hours As Needed for Shortness of Air or Wheezing., Disp: , Rfl: ??? rimegepant sulfate ODT (Nurtec) 75 MG disintegrating tablet, Place 1 tablet under the tongue 1 (One) Time., Disp: , Rfl: Past Medical History: Diagnosis Date ??? Acid reflux ??? Anemia ??? Encounter for blood transfusion 1999 ??? Hepatitis ??? HTN (hypertension) ??? Stroke Past Surgical History: Procedure Laterality Date ??? ABDOMINAL HERNIA REPAIR N/A ??? BREAST LUMPECTOMY Left ??? SECTION N/A ??? CHOLECYSTECTOMY ??? HYSTERECTOMY N/A ??? KNEE SURGERY Left 2017 ??? WISDOM TOOTH EXTRACTION ??? WRIST SURGERY Left 2017 Family History Problem Relation Age of Onset ??? Breast cancer Mother ??? No Known Problems Brother Social History Socioeconomic History ??? Marital status: Single ??? Number of children: 2 Tobacco Use ??? Smoking status: Every Day Types: Cigarettes Passive exposure: Current ??? Smokeless tobacco: Never Vaping Use ??? Vaping status: Never Used Substance and Sexual Activity ??? Alcohol use: Never ??? Drug use: Yes Types: Codeine, Heroin ??? Sexual activity: Defer Objective Vital Signs: BP 130/82 Pulse 98 Ht 152.4 cm (60 ) Wt 93.4 kg (206 lb) SpO2 96% BMI 40.23 kg/m?? Estimated body mass index is 40.23 kg/m?? as calculated from the following: Height as of this encounter: 152.4 cm (60 ). Weight as of this encounter: 93.4 kg (206 lb). Physical Exam Vitals reviewed. Constitutional: Appearance: Normal appearance. HENT: Head: Normocephalic. Cardiovascular: Rate and Rhythm: Normal rate and regular rhythm. Heart sounds: Normal heart sounds. Pulmonary: Effort: Pulmonary effort is normal. Breath sounds: Normal breath sounds. Musculoskeletal: Right lower leg: No edema. Left lower leg: No edema. Skin: General: Skin is warm and dry. Capillary Refill: Capillary refill takes less than 2 seconds. Neurological: General: No focal deficit present. Mental Status: She is alert and oriented to person, place, and time. Psychiatric: Mood and Affect: Mood normal. Behavior: Behavior normal. Cardiology studies reviewed: Coronary CTA reviewed Assessment and Plan Diagnoses and all orders for this visit: 1. Mild CAD (Primary) Assessment & Plan: She completed a coronary CTA on 02/24/2025 due to ongoing chest pain that revealed a mild amount of coronary plaque. Minimal (1-24%) two-vessel disease. Also noted was what appeared to be a narrowing/stenosis versus kink of the left upper pulmonary vein as it empties into the left atrium. Recommendations include maximizing medical therapy for secondary prevention of atherosclerotic disease. We discussed need for statin medication and she is agreeable. Patient reports that all of her medications need to be sent in by her primary care provider. She will discuss starting a statin medication with her PCP. - Check fasting lipid panel Orders: - Lipid Panel; Future 2. Precordial chest pain Assessment & Plan: She continues to experience intermittent episodes of chest pain but was recently put on Prilosec for heartburn. I suspect that chest pain is GI related. A small hiatal hernia was also noted on recentCT. 3. Shortness of breath Assessment & Plan: She completed an echocardiogram on 12/27/2024 that revealed an LVEF of 66 to 70% and no significant valvular abnormalities. Recommendations: ER if symptoms increase and Report if any new/changing symptoms immediately Follow Up Return in about 3 months (around 05/30/2025) for Dr Calderon . Patient was given instructions and counseling regarding her condition or for health maintenance advice. Please see specific information pulled into the AVS if appropriate. documented in this encounter Plan of Treatment Upcoming Encounters Date Type Department Care Team (Late st Contact Info) Description 05/31/2025 3:00 PM EDT Office Visit [facility] [address] [place] [phone] Mima Calderon MD [address] [place] [address] Scheduled Orders Name Type Priority Associated Diagnoses Orde r Schedule Lipid Panel Lab Routine Mild CAD Expected: 03/13/2025 (Approximate), Expires: 02/27/2026 documented as of this encounter Visit Diagnoses Diagnosis Mild CAD- Primary Precordial chest pain Precordial pain Shortness of breath documented in this encounter Care Teams Photographers' Model Relationship Specialty Start Date End Date Mindy Brandon PA [address] [place] [address] PCP - General Physician Repossession Agent 12/02/24 documented as of this encounter
--- OUTSIDE RECORDS SUMMARY | 2025-03-14 14:12 | XMS_ITS | Encounter Summary ---
Author Organization [facility] ([place], [place], [place], [place]) Address [address] [place] [address] Care Team Providers Care Lube Attendant Name Role Phone Lloyd Roberts MD Primary Care Provider [phone] Reason for Referral * MRI (Routine) - Closed Specialty Diagnoses / Procedures Referred By Ovidio ling Referred To Contact Radiology Diagnoses Recurrent left knee instability Procedures MR lower extremity joint only without IV contrast left side Lizz Hoang PA-C [address] [place] [address] Phone: tel: fax: [address] [address] Phone: tel: fax: Referral ID Status Reason Start Date Expiration Date V isits Requested Visits Authorized [id number] Closed Continuity of Care 02/15/2025 02/15/2026 1 1 Reason for Visit * MRI (Routine) - Closed Specialty Diagnoses / Procedures Referred By Ovidio ling Referred To Contact Radiology Diagnoses Recurrent left knee instability Procedures MR lower extremity joint only without IV contrast left side Lizz Hoang PA-C [address] [place] [address] Phone: tel: fax: [facility] [address] [place] [address] Phone: tel: fax: Referral ID Status Reason Start Date Expiration Date V isits Requested Visits Authorized [id number] Closed Continuity of Care 02/15/2025 02/15/2026 1 1 Encounter Details Date Type Department Care Team (Late st Contact Info) Description 03/14/2025 2:12 PM EDT - 03/14/2025 11:59 PM EDT Hospital Encounter [facility] [address] [place] [address] Lizz Hoang PA-C [address] [place] [id number] Recurrent left knee instability Discharge Disposition: Home or Self Care Social History Tobacco Use Types Packs/Day Years Used Date Smoking Tobacco: Never Smokeless Tobacco: Never Alcohol Use Standard Drinks/Week Comments Never 0 (1 standard drink = 0.6 oz pur e alcohol) Family and Community Support Answer Patrick e Recorded Help with Day to Day Activities Not on file 10/16/2023 Feeling Lonely or Isolated Not on file 10/16 Educational Attainment Answer Date Josue rded Speak language other than Faroese at home Not on file 10/16/2023 Want help with school or training Not on file 10/16/2023 Substance Use Answer Date Recorded Used prescription meds for non-medical reasons N ot on file 10/16/2023 Used illegal drugs past 12 months Not on file 10/16/2023 Comments No Sex and Gender Information Value Date Recorded Sex Assigned at Female 03/25/2022 6:18 PM CDT Legal Sex Female 6:18 PM CDT Gender Identity Female 03/25/2022 6:18 PM CDT Sexual Orientation Not on file documented as of this encounter Medications at Time of Discharge amLODIPine (NORVASC) 5 MG tablet TAKE 1 TABLET 1 TIME EACH DAY aspirin 81 MG EC tablet TAKE 1 TABLET 1 TIME EACH DAY busPIRone (BUSPAR) 10 MG tablet Take 1 tablet (10 mg total) by mouth 2 (two) times daily. 12/27/2024 Emgality Pen 120 mg/mL pen Inject 1 mL (120 mg total) under the skin every 30 (thirty) days. 02/08/2025 lisinopriL-hydro CHLOROthiazide (ZESTORETIC, PRINZIDE) 20-25 mg per tablet TAKE 1 TABLET 1 TIME EACH DAY metoprolol succinate (TOPROL-XL) 50 MG 24 hr tablet TAKE 1 TABLET 1 TIME EACH DAY Nurtec ODT 75 mg TbDL TAKE 1 TABLET 1 TIME EACH DAY NEEDED FOR HEADACHE 02/08/2025 rOPINIRole (REQUIP) 0.25 MG tablet TAKE 1 TABLET 1 TIME EACH DAY AT BEDTIME Zavzpret 10 mg/actuation spry SPRAY 1 TIME IN EACH NOSTRIL 1 TIME EACH DAY NEEDED FOR HEADACHE 02/08/2025 promethazine (PHENERGAN) 12.5 MG tablet TAKE 1 TABLET 3 TIMES EACH DAY NEEDED 04/03/2025 SUMAtriptan (IMITREX) 100 MG tablet TAKE 1 TABLET AT START OF HEADACHE. MAY TAKE ANOTHER TABLET IN 2 HOURS IF NEEDED. DO NOT TAKE MORE THAN 2 TABLETS IN 24 HOURS. 04/03/2025 documented as of this encounter Plan of Treatment Not on file documented as of this encounter Procedures Procedure Name Priority Date/Time Associated Diagnosis Comments MR LOWER EXTREMITY JOINT ONLY WITHOUT IV CONTRAST LEFT Routine 03/14/2025 2:44 PM EDT Recurrent left knee instability documented in this encounter Results * MR lower extremity joint only without IV contrast left side (03/14/2025 2:44 PM EDT) Anatomical Region Laterality Modality Lower Extremity, Hip, Knee, Ankle Magnetic Resonance (MRI) 03/15/2025 7:54 AM EDT Impressions 03/15/2025 11:38 AM EDT 1. Complex lateral meniscal tear. 2. Intrameniscal degeneration of the medial meniscus. 3. Degenerative joint disease. Images reviewed, interpreted, and dictated by Fernanda Montenegro MD Narrative 03/15/2025 11:38 AM EDT PROCEDURE: MR LOWER EXTREMITY WITHOUT CONTRAST, LEFT KNEE INDICATION: Left lateral knee pain and popping. TECHNIQUE: Multiplanar and multisequence imaging of the left knee were obtained without contrast. COMPARISON: Plain radiographs dated 02/15/2025. FINDINGS: Motion artifact limits exam quality. Bones/Joints: There is no acute fracture or acute bone marrow edema. There are several subchondral cysts within the medial patellar facet and the medial femoral condyle which are likely degenerative. There is degenerative joint disease with mild chondromalacia. Menisci: There is intrameniscal degeneration of the medial meniscus, most pronounced in the posterior horn. No linear abnormality that reaches 2 surfaces. There is a complex tear of the anterior horn of the lateral meniscus which extends into the body. There also appears to be a tear of the posterior horn of the lateral meniscus. Ligaments: The cruciate and collateral ligaments are intact. Muscles/Tendons: The quadriceps and patellar tendons are intact. The medial and lateral tendons are without abnormality. Soft Tissues: There is a small joint effusion. Remaining soft tissues are without acute abnormality. Procedure Note Fernanda Montenegro MD - 03/15/2025 PROCEDURE: MR LOWER EXTREMITY WITHOUT CONTRAST, LEFT KNEE INDICATION: Left lateral knee pain and popping. TECHNIQUE: Multiplanar and multisequence imaging of the left knee were obtained without contrast. COMPARISON: Plain radiographs dated 02/15/2025. FINDINGS: Motion artifact limits exam quality. Bones/Joints: There is no acute fracture or acute bone marrow edema. There are several subchondral cysts within the medial patellar facet and the medial femoral condyle which are likely degenerative. There is degenerative joint disease with mild chondromalacia. Menisci: There is intrameniscal degeneration of the medial meniscus, most pronounced in the posterior horn. No linear abnormality that reaches 2 surfaces. There is a complex tear of the anterior horn of the lateral meniscus which extends into the body. There also appears to be a tear of the posterior horn of the lateral meniscus. Ligaments: The cruciate and collateral ligaments are intact. Muscles/Tendons: The quadriceps and patellar tendons are intact. The medial and lateral tendons are without abnormality. Soft Tissues: There is a small joint effusion. Remaining soft tissues are without acute abnormality. IMPRESSION: 1. Complex lateral meniscal tear. 2. Intrameniscal degeneration of the medial meniscus. 3. Degenerative joint disease. Images reviewed, interpreted, and dictated by Fernanda Montenegro MD us Lizz H Viktor PA-C IMG MRI ORDERABLES Final Re sult documented in this encounter Visit Diagnoses Diagnosis Recurrent left knee instability documented in this encounter Care Teams Lube Attendant Relationship Specialty Start Date End Date Lloyd Roberts MD [address] [place], [place] [id number] PCP - General Family Medicine 09/26/22 03/28/25 documented as of this encounter
--- OUTSIDE RECORDS SUMMARY | 2025-03-16 14:15 | XMS_ITS | Encounter Summary ---
Author Organization [employer] [facility] ([place], [place], [place], [place]) Address [address] [place] [address] Care Team Providers Care Wharf Tender Head Name Role Phone Lloyd Roberts MD Primary Care Provider [phone] Reason for Visit * Reason Comments Follow-up Left knee MRI result s Encounter Details Date Type Department Care Team (Late st Contact Info) Description 03/16/2025 2:15 PM EDT Office Visit [facility] - [address] [phone] Lizz Hoang PA-C [address] [place] [id number] Complex tear of lateral meniscus of left knee, sequela (Primary Dx) Social History Tobacco Use Types Packs/Day Years [...] Date Josue rded Speak language other than Syriac at home Not on file 10/16/2023 Want [...] Sign Reading Time Taken Comments Blood Pressure 141/94 03/16/2025 2:33 PM EDT Pulse 96 03/16/2025 2:33 PM EDT Temperature - - Respiratory Rate - - Oxygen Saturation - - Inhaled Oxygen Concentration - - Weight 90.7 kg (200 lb) 03/16/2025 2:30 PM EDT Height 154.9 cm (5' 1 ) 03/16/2025 2:30 PM EDT Body Mass Index 37.79 03/16/2025 2:30 PM EDT documented in this encounter Progress Notes * Lizz Hoang PA-C - 03/16/2025 2:15 PM EDT NAME: Samara Richardson CSN: [id number] : 1970 PCP: Lloyd Roberts MD REASON FOR VISIT Follow-up (Left knee MRI results) Is this Worker's Comp? No HPI Samara Richardson is a 54 y.o. female Established patient presents for left knee MRI results. Patient reports that symptoms remain unchanged since previous visit. She describes her knee pain as sharp which is increased with mopping or sweeping her floors. She reports that she wears a brace, takes tylenol/ibuprofen as needed, and alternates ice and heat. She rates her pain a 6/10 today. CURRENT MEDICATIONS Current Outpatient Medications Medication Instructions amLODIPine (NORVASC) 5 MG tablet TAKE 1 TABLET 1 TIME EACH DAY aspirin 81 MG EC tablet TAKE 1 TABLET 1 TIME EACH DAY lisinopriL-hydroCHLOROthiazide (ZESTORETIC, PRINZIDE) 20-25 mg per tablet TAKE 1 TABLET 1 TIME EACHDAY metoprolol succinate (TOPROL-XL) 50 MG 24 hr tablet TAKE 1 TABLET 1 TIME EACH DAY promethazine (PHENERGAN) 12.5 MG tablet TAKE 1 TABLET 3 TIMES EACH DAY NEEDED rOPINIRole (REQUIP) 0.25 MG tablet TAKE 1 TABLET 1 TIME EACH DAY AT BEDTIME SUMAtriptan (IMITREX) 100 MG tablet TAKE 1 TABLET AT START OF HEADACHE. MAY TAKE ANOTHER TABLET IN 2 HOURS IF NEEDED. DO NOT TAKE MORE THAN 2 TABLETS IN 24 HOURS. ALLERGIES Allergies Allergen Reactions Ciprofloxacin Vancomycin PAST MEDICAL/SURGICAL HISTORY Past Medical History: Diagnosis Date Blood transfusion without reported diagnosis Hypertension Migraines Past Surgical History: Procedure Laterality Date BREAST LUMPECTOMY CARDIAC CATHETERIZATION SECTION CHOLECYSTECTOMY HERNIA REPAIR low pelvic KNEE SURGERY SOCIAL HISTORY Social History Tobacco Use Smoking status: Never Smokeless tobacco: Never Substance Use Topics Alcohol use: Never Drug use: Never FAMILY HISTORY No family history on file. REVIEW OF SYSTEMS General: No recent fever or chills, no recent weight loss or weight gain, no insomnia HEENT: No change in vision, no glasses/contacts, no hearing loss, no tinnitus, no vertigo, no congestion/sinus issues CVS: No chest pain, no palpitations, no edema, no varicose veins Resp: No dyspnea, no wheezing, no cough, no hemoptysis GI: No dysphagia, no nausea, no vomiting, no heart burn, no constipation, no diarrhea : No dysuria, no hematuria, no nocturia, no history of chronic UTI Musculoskeletal: See HPI Derm: No rash, no abrasions, no skin discoloration, no history or MRSA Neuro: See HPI Endo: No cold/heat intolerance Heme: No abnormal bruising or bleeding Psych: No depression, no anxiety, no fatigue, no mood swings Scribe Attestation: IVeronica RTR acted as a scribe and transcribed components of the current encounter under the direction of the Attending Provider. I have not been involved in providing any clinical treatments or patient care. Electronically Signed, NICK Peña OBJECTIVE Vitals: 03/16/25 1430 03/16/25 1433 BP: (!) 148/93 (!) 141/94 Pulse: 74 96 Weight: 90.7 kg (200 lb) Height: 1.549 m (5' 1 ) Ortho Exam Left Knee Exam General: Awake, Alert, Oriented x3, Well developed Appearance: +mild effusion, - localized swelling, - deformity, -masses Tenderness to palpation: - Medial joint line, + Lateral joint line, + Patellofemoral joint, -MCL, -LCL, -Posterior, - Quad Tendon, - Patellar Tendon, -Hamstring, - Gastrocnemius ROM: 120 Flexion, Full Extension Strength: 4/5 Testing:+Vilma, -fidelina Neurovascular: NVI, -Homans Skin: normal appearance with no discoloration or wounds Gait: abnormal mild limp IMAGING/OUTSIDE REPORTS MR lower extremity joint only without IV contrast left side Narrative: PROCEDURE: MR LOWER EXTREMITY WITHOUT CONTRAST, LEFT [...] Remaining soft tissues are without acute abnormality. Impression: 1. Complex lateral meniscal tear. 2. Intrameniscal degeneration of the medial meniscus. 3. Degenerative joint disease. Images reviewed, interpreted, and dictated by Fernanda Montenegro MD ASSESSMENT Problem List Items Addressed This Visit Musculoskeletal and Integument Complex tear of lateral meniscus of left knee, sequela - Primary DISCUSSION I discussed with the patient in depth the diagnosis and treatment options for meniscal tears. I explained that the two most common types of tears are acute and chronic. Acute tears usually occur in younger adults, especially after a traumatic injury, while chronic and degenerative tears typically occur in older adults with minimal or no history of trauma. Degenerative tears are found in a high percentage of patients with diagnosis of osteoarthritis. In patients aging from 50-60 years old, the incidence is greater than 50%. Due to the characteristics of the disease and the presentation of the symptoms upon examination, it is difficult to determine if the symptoms the patient is experiencing are due to the underlying osteoarthritis or a degenerative tear, which is usually of a flap or horizontal nature. Due to the reduced blood supply to the area, meniscal tears rarely heal, unless along the outer rim of the menisci due to an increased blood flow to this particular area of the menisci. T reatment options were discussed with the patient, both conservative versus surgical. I explained tothe patient that even if the tear does not heal, the knee may become asymptomatic with non-operative treatment. Conservative treatment includes cortisone injections, oral and topical NSAIDs, therapy,and bracing. Surgical treatment was discussed with the patient as well; explaining that arthroscopic is the most common orthopedic intervention, including partial meniscal resection, meniscus repair,or debridement if indicated. If conservative treatment options for the tear fail and symptoms of internal derangement persist, including those of swelling, pain, locking and giving way of the knee, surgical treatment may be indicated, but only under those strict indications. The ultimate prognosis may be guarded if osteoarthritis is present as well. PLAN Return in about 1 week (around 03/23/2025) for left knee dx surgery w/ Sandoval. Rest Ice Elevate Return to Clinic if new or worse symptoms occur Activity as Tolerated Discussed conservative treatment options to include cortisone injections, bracing, anti-inflammatories since symptoms have improved. Discussed surgical intervention to include knee arthroscopy vs arthroplasty. Discussed I think based off her symptoms matching lateral meniscus and Xrays having maintained space maybe starting with arthroscopy first. Patient would rather pursue arthroscopy first. Declined cortisone today. Scribe Attestation: Veronica Ndiaye RTR acted as a scribe and transcribed components of the current encounter under the direction of the Attending Provider. I have not been involved in providing any clinical treatments or patient care. Electronically Signed, NICK Peña Jenna Newkirk, PA-C attest that I have examined the above patient. I have dictated the exam, diagnosis, and plan to the scribe listed above to be transcribed into this document. I have supplemented the above documentation as warranted. I attest that I have reviewed the above documentation in itsentirety and concur. Electronically SignedLizz PA-C 03/16/2025 3:44 PM EDT Bill Becerra: Michael MAKI / CARLIE is undergoing an EHR transition as of this date of service. There may be a delay in uploading older paper and EHR chart data to this new system. The above encounter has been documented to the best of the provider's working knowledge of the EHR in conjunction with medical information provided by the patient (and/or the patient's family member). documented in this encounter Plan of Treatment Not on file documented as of this encounter Visit Diagnoses Diagnosis Complex tear of lateral meniscus of left knee, sequela- Primary documented in this encounter Care Teams Wharf Tender Head Relationship Specialty Start Date End Date Lloyd Roberts MD [address] [place] [address] PCP - General Family Medicine 09/26/22 03/28/25 documented as of this encounter
--- OUTSIDE RECORDS SUMMARY | 2025-03-23 08:15 | XMS_ITS | Encounter Summary ---
Author Organization [employer] ([place], [place], [place], [place]) Address [address] [place] [address] Care Team Providers Care Service Unit Operator Oil Well Name Role Phone Lloyd Roberts MD Primary Care Provider [phone] Reason for Referral * Other (Routine) - New Request Specialty Diagnoses / Procedures Referred By Contac t Referred To Contact Diagnoses Complex tear of lateral meniscus of left knee, sequela Pre-op testing Procedures ECG 12 lead Сергей Sandoval MD [address] [place] [address] Phone: tel: fax: Referral ID Status Reason Start Date Expiration Date V isits Requested Visits Authorized [id number] New Request 03/23/2025 03/23/2026 1 1 * Diagnostic X-Ray (Routine) - New Request Specialty Diagnoses / Procedures Referred By Ovidio t Referred To Contact Radiology Diagnoses Complex tear of lateral meniscus of left knee, sequela Pre-op testing Procedures XR chest 2 views Сергей Sandoval MD [address] [place] [address] Phone: tel: fax: [facility] [address] [place] [phone] Phone: tel: fax: Referral ID Status Reason Start Date Expiration Date V isits Requested Visits Authorized [id number] New Request 03/23/2025 03/23/2026 1 1 Reason for Visit * Reason Comments Follow-up Left knee to discuss surgery Encounter Details Date Type Department Care Team (Late st Contact Info) Description 03/23/2025 8:15 AM EDT Office Visit [facility] - [address] [phone] Сергей Sandoval MD [address] [place] [address] Complex tear of lateral meniscus of left knee, sequela (Primary Dx); Recurrent left knee instability; Acute lateral meniscus tear of left knee; Pre-op testing Social History Tobacco Use Types Packs/Day Years [...] Date Josue rded Speak language other than Kazakh at home Not on file 10/16/2023 Want [...] Sign Reading Time Taken Comments Blood Pressure 117/81 03/23/2025 8:45 AM EDT Pulse 93 03/23/2025 8:45 AM EDT Temperature - - Respiratory Rate - - Oxygen Saturation - - Inhaled Oxygen Concentration - - Weight 85.7 kg (189 lb) 03/23/2025 8:45 AM EDT Height 152.4 cm (5') 03/23/2025 8:45 AM EDT Body Mass Index 36.91 03/23/2025 8:45 AM EDT documented in this encounter Progress Notes * Сергей Sandoval MD - 03/23/2025 8:15 AM EDT NAME: Samara Richardson CSN: [id number] : 1970 PCP: Lloyd Roberts MD REASON FOR VISIT Follow-up (Left knee to discuss surgery) Is this Worker's Comp? No HPI Samara Richardson is a 54 y.o. female Established patient presents for follow up on left knee to discuss surgical intervention. Patient reports that her symptoms remain unchanged since previous visit. She reports continue locking symptoms. She describes her pain as a constant aching worse with pivoting. She rates her pain as an 8/10 atthis time. She states that she has continued conservative treatment as outlined with only temporaryrelief. Patient reports that she has exhausted conservative treatment and reports that the pain is affecting her daily living. Interval HPI: 6.19.25 Established patient presents for left knee MRI [...] Diagnosis Date Blood transfusion without reported diagnosis Degeneration of lumbar intervertebral disc Diverticulitis TIARA (generalized anxiety disorder) GERD without esophagitis Granulomatous disorder of the skin and subcutaneous tissue, unspecified Hematochezia Hypertension Left lower quadrant pain Lumbar spondylosis Lung nodule Migraines Mixed hyperlipidemia Occult blood detected in feces by immunoassay PVD (peripheral vascular disease) (HCC) Reactive airway disease RLS (restless legs syndrome) Vitamin D deficiency Past Surgical History: Procedure Laterality Date BREAST LUMPECTOMY CARDIAC CATHETERIZATION SECTION CHOLECYSTECTOMY COLONOSCOPY HERNIA REPAIR low pelvic KNEE SURGERY WISDOM TOOTH EXTRACTION SOCIAL HISTORY Social History Tobacco Use Smoking status: Never Smokeless tobacco: Never Substance Use Topics Alcohol use: Never Drug use: Never FAMILY HISTORY Family History Problem Relation Name Age of Onset Breast cancer Mother REVIEW OF SYSTEMS General: No recent fever [...] no fatigue, no mood swings Scribe Attestation: IGianna RTR acted as a scribe and transcribed components of the current encounter under the direction of the Attending Provider. I have not been involved in providingany clinical treatments or patient care. Electronically Signed, NICK Sandoval OBJECTIVE Vitals: 03/23/25 0845 BP: 117/81 Pulse: 93 Weight: 85.7 kg (189 lb) Height: 1.524 m (5') Ortho Exam Left Knee Exam General: Awake, [...] wounds Gait: abnormal mild limp IMAGING/OUTSIDE REPORTS Radiology was not performed at today's visit MR lower extremity joint only without IV [...] the medial meniscus. 3. Degenerative joint disease. ASSESSMENT Problem List Items Addressed This Visit Musculoskeletal and Integument Complex tear of lateral meniscus of left knee, sequela - Primary Other Recurrent left knee instability PLAN F/U post op Rest Ice Follow up after post-operatively/procedure, as scheduled Return to clinic sooner if new or worse symptoms occur Watch for s/s of infection, contact office if seen SURGICAL PLANNING Surgical Procedure scheduled today in office: left Knee Diagnostic Arthroscopy with partial lateralmenisectomy vs repair and chondroplasty Special Surgical Procedure Needs: Knee Surgery: Pre-fabricated hinged knee brace needed post surgery Diagnosis Discussion: Meniscal Tear: I discussed with the patient in depth [...] than 50%. Due to the characteristics of thedisease and the presentation of the symptoms upon [...] to this particular area of the menisci. Treatment options were discussed with the patient, both conservative versus surgical. I explained to the patient that even if the tear does not heal, the knee may become asymptomatic with non-operative treatment. Conservative treatment includes cortisone injections, oral and topical NSAIDs, therapy, and bracing. Surgical treatment was discussed with the patientas well; explaining that arthroscopic is the most common orthopedic intervention, including partialmeniscal resection, meniscus repair, or debridement if indicated. If conservative treatment optionsfor the tear fail and symptoms of internal derangement persist, including those of swelling, pain, l ocking and giving way of the knee, surgical treatment may be indicated, but only under those strictindications. The ultimate prognosis may be guarded if osteoarthritis is present as well. Surgical Risk Discussion: Elective Surgical Risks: Patient feels they have exhausted conservative measures and would like to proceed with surgical intervention regarding symptomatic extremity. I discussed the recommended procedure(s) listed above including risks, potential complications and expected recovery. Questions were answered. No guarantees were given. Patient verbalizes understanding. Consent was obtained. Patient has tried and failed:Activity Modification NSAIDs Brace Home Exercise Program provided by Provider in office Discussed increased risk of developing a deep venous thrombosis (DVT). Discussed signs and symptomsof a DVT, as well as a pulmonary embolus (PE). Discussed ways to reduce this risk including anti-coagulants which patient will be placed on postoperatively, elevating extremity at rest, and motion ofupper/lower extremity throughout the day to include, but not limited to, hand/ankle pumps. Patient to notify my office if signs or symptoms develop consistent with a DVT or PE. Instructed patient to go to ED if unavailable to reach our office and developing signs of shortness of breath or severe calf pains. Patient verbalizes understanding Narcotic Education/Discussions: GALO performed and reviewed Patient Treats with Pain Management: No Major Surgery: We will prescribe opioids after major surgery for 14 days or less with no refills. Patient education using written material provided to patient: Education, guidance, and counseling about medication: Discussed - Schedule II controlled substance(s) will be prescribed according to your orthopedic care and medical necessity. Schedule II controlled substance(s) are only required for a certain amount of time. Every effort on our part will be usedto switch you over to non-narcotic pain medications as soon as your pain level permits. Our office, your pharmacy, and your insurance company will closely monitor your prescription refills for excessive abuse or halfway use. If necessary, you will be referred to paint roller winder. We will monitor your use of scheduled drugs through the GALO program. In addition, we will follow the monitoring procedures required by the [facility]. The side effects of Schedule II controlled substance(s) / narcotic medications can include GI upset, constipation, drowsiness, dizziness, impaired judgement, itching, rash, and risk of overdose. Narcotic pain medication has high potential for addiction and abuse if not taken properly. You must follow the dosage prescribed to decrease your riskof dependency and / or abuse. Our goal is to decrease you dosage to avoid withdrawal symptoms. Our goal is to have you off of narcotic pain medication as soon as possible. Opioid treatment agreement signed written consent obtained to prescribe controlled substances. Discussed the risks and benefits of the use of controlled substances with patient, including the risk oftolerance and drug dependence. Patient understands these terms Preoperative Education/Discussion Regarding Modifiable Risk Factors Smoking: Patient is a current smoker: I discussed with the patient that the use of tobacco is recognized as a harmful influence in the management of orthopedic problems. It appears to lower the pain threshold. Smoking increases the chance of developing wound healing problems, sympathetic dystrophy,painful nerve irritation, myofascial pain syndrome and improper fracture healing. It is associated with delayed or incomplete recovery and a higher complication rate following treatment of upper extremity problems. It was recommended that surgical patients be nicotine free 8 weeks prior to surgery.Patient advised to stop smoking. If patient has difficulty with smoking cessation, we will refer to primary care provider to begin a treatment plan to help the patient stop smoking. Smoking cessationcounseling of approximately five minutes (greater than 3 minutes and up to 10 minutes) was performed. Body mass index is 36.91 kg/m??. Body Mass Index:Patient's current BMI >35 For TOTAL JOINT: Total Joint: Body mass index Lesser Outcomes after Joint Replacement: Joint replacement will help relieve pain and enable patients to live a nguyen, more active life. However, if the patient is obese (BMI > 40), they may never achievethe increased mobility and range of motion experienced by a patient of normal weight. They may also experience more implant and prosthesis complications after surgery, to include but not limited to the following: Component loosening and failure; 2-7x higher risk for infection. Dislocation of the replacement joint, especially in the hip; In some cases, a second revision surgery may be necessary to remove failed implants and replace them with new ones ones. Weight loss advised: Weight Loss Planfor patient: Discussed the following: decrease caloric intake, begin low impact exercises, and incorporate healthy lifestyle measures. Advised to consult primary care provider prior to making changes. Discussed surgical intervention for weight loss but deferred referral to primary care provider to determine if patient is a good candidate for weight loss surgery. Bariatric surgery should be the last resort for weight Diabetic: Patient is not Diabetic Scribe Attestation: Serafin Ndiaye RTR acted as a scribe and transcribed components of the current encounter under the direction of the Attending Provider. I have not been involved in providing any clinical treatments or patient care. Electronically Signed, NICK Angelo James Rollins, MD attest that I have examined the above patient. I have dictated the exam, diagnosis, and plan to the scribe listed above to be transcribed into this document. I have supplemented the above documentation as warranted. I attest that I have reviewed the above documentation in its entirety and concur. Electronically Signed, Сергей Sandoval MD 03/23/2025 8:45 AM EDT Bill Becerra: Michael MAKI / CARLIE [...] documented in this encounter Plan of Treatment Scheduled Orders Name Type Priority Associated Diagnoses Orde r Schedule XR chest 2 views Imaging Routine Complex tear of lateral meniscus of left knee, sequela Pre-op testing Expected: 03/23/2025 (Approximate), Expires: 03/23/2026 CBC with automated diff Lab Routine Complex tear of lateral meniscus of left knee, sequela Pre-op testing Expected: 03/23/2025 (Approximate), Expires: 03/23/2026 Comprehensive metabolic panel Lab Routine Complex tear of lateral meniscus of left knee, sequela Pre-op testing Expected: 03/23/2025 (Approximate), Expires: 03/23/2026 ECG 12 lead ECG Routine Complex tear of lateral meniscus of left knee, sequela Pre-op testing Expected: 03/23/2025 (Approximate), Expires: 03/23/2026 documented as of this encounter Visit Diagnoses Diagnosis Complex tear of lateral meniscus of left knee, sequela- Primary Recurrent left knee instability Acute lateral meniscus tear of left knee Pre-op testing Unspecified pre-operative examination documented in this encounter Care Teams Service Unit Operator [employer] Relationship Specialty Start Date End Date Lloyd Roberts MD [address] [place] [id number] PCP - General Family Medicine 09/26/22 03/28/25 documented as of this encounter
--- OUTSIDE RECORDS SUMMARY | 2025-04-04 23:59 | XMS_ITS | Encounter Summary ---
Author Organization [employer] ([place], [place], [place], [place]) Address [address] [place] [address] Care Team Providers Care Emergency Dispatch Operator Name Role Phone Mindy Brandon Primary Care Provider Encounter Details Date Type Department Care Team (Late st Contact Info) Description 04/05/2025 11:59 PM EDT Anesthesia Event [facility] Operating Room [address] [place] [phone] Ginna Cardona CRNA Anesthesia Record Procedure Summary Procedure Name Responsible Anesthesiologist Anesthesia Start Time Anesthesia Stop Time ARTHROSCOPY, KNEE, WITH MENISCECTOMY, MENISCUS REPAIR, AND CHONDROPLASTY SHAVING, (Left) Events No events on file. Meds * Agents No agents on file. * Blood No blood administrations on file. Lines, Drains, and Airways No LDAs on file. documented in this encounter Social History Tobacco Use Types Packs/Day Years Used Date Smoking Tobacco: Every Day Cigarettes Smokeless Tobacco: Never Comments:Using nicorette to quit Alcohol Use Standard Drinks/Week Comments Never 0 (1 standard drink = 0.6 oz pur e alcohol) Family and Community Support Answer Patrick e Recorded Help with Day to Day Activities Not on file 10/16/2023 Feeling Lonely or Isolated Not on file 10/16 Educational Attainment Answer Date Josue rded Speak language other than Egyptian at home Not on file 10/16/2023 Want [...] on file documented as of this encounter Plan of Treatment Not on file documented as of this encounter Visit Diagnoses Not on filedocumented in this encounter Care Teams Emergency Dispatch Operator Relationship Specialty Start Date End Date Mindy Brandon PA [address] [place] [phone] PCP - General Physician Elementary School Counselor 03/29/25 documented as of this encounter
[2025-04-19] VITALS (8 sets, daily range): BP systolic 92–133; BP diastolic 63–94; PULSE 56–74; RESP 11–24; TEMP 36.6; O2SAT 95–100; BMI 40.2
--- NOTE | 2025-04-19 20:54 | ECG_ITS ---
APPROVED REPORT Exam: Resting ECG HR:70 bpm ECG Measurements Heart Rate 70 AXES TN 126 P 40 QRSd 89 QRS 35 QT 394 T 41 QTc 415 Conclusion Normal sinus rhythm without acute ST or T wave changes concerning for ischemia Electronically signed by : Sushma Ramirez, 04/20/2025 00:50:21
--- NOTE | 2025-04-19 20:59 | XR_ITS ---
PROCEDURE INFORMATION: Exam: XR Chest Exam date and time: 04/19/2025 9:08 PM Age: 54 years old Clinical indication: Shortness of breath; Additional info: Short of breath TECHNIQUE: Imaging protocol: Radiologic exam of the chest. Views: 1 view. COMPARISON: CR XR CHEST PORTABLE 11/12/2023 1:00 PM FINDINGS: Lungs: Unremarkable. No consolidation. Pleural spaces: Unremarkable. No pleural effusion. No pneumothorax. Heart/Mediastinum: Unremarkable. No cardiomegaly. Bones/joints: Unremarkable. IMPRESSION: No acute findings.
--- OUTSIDE RECORDS SUMMARY | 2025-04-19 20:59 | XMS_ITS | Encounter Summary ---
Author Organization [facility] Address [address] [place] [address] Care Team Providers Care Processing Inspector Name Role Phone Mindy Brandon Primary Care Provider [phone] Reason for Visit * Reason Onset Date Comments BOBBY-PLEASE CALL 03/08/2025 Encounter Details Date Type Department Care Team (Late st Contact Info) Description 03/08/2025 Telephone [facility] [address] [place] [address] Mima Calderon MD [address] [place] [address] BOBBY-PLEASE CALL Social History Tobacco Use Types Packs/Day Years [...] on file documented as of this encounter Miscellaneous Notes * Telephone Encounter - Naima Duval RegSched Rep - 03/08/2025 8:50 AM EDT Caller: Samara Richardson Relationship to patient: Self Best call back number: [phone] Patient is needing: PLEASE HAVE THE NURSE BOBBY CALL THE PATIENT. SHE HAS SOME QUESTIONS ABOUT UPCOMING APPOINTMENTS FROM A REFERRAL. documented in this encounter Plan of Treatment Upcoming Encounters Date Type Department Care Team (Late st Contact Info) Description 05/31/2025 3:00 PM EDT Office Visit [facility] [address] [place] [phone] Mima Calderon MD [address] [place] [address] documented as of this encounter Visit Diagnoses Not on filedocumented in this encounter Care Teams Processing Inspector Relationship Specialty Start Date End Date Mindy Brandon PA [address] [facility] [address] [place] [address] PCP - General Physician Dual Rate Dealer 12/02/24 documented as of this encounter
--- OUTSIDE RECORDS SUMMARY | 2025-04-19 20:59 | XMS_ITS | Encounter Summary ---
Author Organization [employer] ([place], [place], [place], [place]) Address [address] [place] [address] Care Team Providers Care Assistant Art Director Name Role Phone Mindy Brandon Primary Care Provider Reason for Visit * Auth/Cert (Routine) Specialty Diagnoses / Procedures Referred By Ovidio ling Referred To Contact Diagnoses Acute lateral meniscus tear of left knee Lateral meniscus tear of left knee Procedures CO ARTHRS KNE SURG W/MENISCECTOMY MED/LAT W/SHVG CO ARTHRS KNEE DEBRIDEMENT/SHAVING ARTCLR CRTLG CO ARTHROSCOPY KNEE W/MENISCUS RPR MEDIAL/LATERAL ARTHROSCOPY, KNEE, WITH MENISCECTOMY Сергей Sandoval MD [address] [place] [address] Phone: tel: fax: Referral ID Status Reason Start Date Expiration Date Visits Re quested Visits Authorized [id number] 03/23/2025 1 1 Encounter Details Date Type Department Care Team (Late st Contact Info) Description 04/05/2025 Hospital Encounter [facility] Operating Room [address] [place] [address] Сергей Sandoval MD [address] [place] [address] Social History Tobacco Use Types Packs/Day Years Used Date Smoking Tobacco: Every Day Cigarettes Smokeless Tobacco: Never Tobacco Cessation:Ready to Q uit: Not Asked; Counseling Given: Not Answered Comments:Using nicorette to quit Alcohol Use Standard Drinks/Week Comments Never 0 (1 standard drink = 0.6 oz pur e alcohol) Family and Community Support Answer Patrick e Recorded Help with Day to Day Activities Not on file 10/16/2023 Feeling Lonely or Isolated Not on file 10/16 Educational Attainment Answer Date Josue rded Speak language other than Lithuanian at home Not on file 10/16/2023 Want [...] Sign Reading Time Taken Comments Blood Pressure - - Pulse - - Temperature - - Respiratory Rate - - Oxygen Saturation - - Inhaled Oxygen Concentration - - Weight 85.7 kg (189 lb) 04/03/2025 7:00 AM EDT s tated Height - - Body Mass Index 36.91 03/23/2025 8:45 AM EDT documented in this encounter Plan of Treatment Not on file documented as of this encounter Visit Diagnoses Diagnosis Acute lateral meniscus tear of left knee- Primary documented in this encounter Admitting Diagnoses Diagnosis Acute lateral meniscus tear of left knee documented in this encounter Care Teams Assistant Art Director Relationship Specialty Start Date End Date Mindy Brandon PA [address] [place] [phone] PCP - General Physician Sack Lifter 03/29/25 documented as of this encounter
--- OUTSIDE RECORDS SUMMARY | 2025-04-19 20:59 | XMS_ITS | Encounter Summary ---
Author Organization [employer] ([place], [place], [place], [place]) Address [address] [place] [address] Care Team Providers Care Pre School Manager Name Role Phone Lloyd Roberts MD Primary Care Provider [phone] Mindy Brandon Primary Care Provider Encounter Details Date Type Department Care Team (Late st Contact Info) Description 03/01/2019 Transcribed Document [facility] Family Medicine [facility] [place] [address] ProviderAlexander MD [address] [place] [address] Social History Tobacco Use Types Packs/Day Years Used Date Smoking Tobacco: Never Assessed Comments Unknown Sex and Gender Information Value Date Recorded Sex Assigned at Female 03/25/2022 6:18 PM CDT Legal Sex Female 6:18 PM CDT Gender Identity Female 03/25/2022 6:18 PM CDT Sexual Orientation Not on file documented as of this encounter Miscellaneous Notes * Cerner Conversion Note - Alexander ProviderMD - 03/01/2019 12:16 PM CDT ED Triage Entered On: 03/01/2019 12:27 EDT Performed On: 03/01/2019 12:25 EDT by Leialni Garland, pie bottomer Triage Across the Room Triage Date/Time : 03/01/2019 12:25 EDT Chief Complaint : pt c/o LLQ pain starting last night. pt denies urinary symptoms. -n/-v Leilani Garland Rn - 03/01/2019 12:25 EDT DCP GENERIC CODE Tracking Acuity : 3 - Urgent Tracking Group : [facility] ED Leilani Garland Rn - 03/01/2019 12:25 EDT Mode of Arrival : Ambulatory Transported to ED by : Private vehicle To Room Via : Ambulate Accompanied By : Unaccompanied ED Vital Signs : Document Height & Weight : Document ED Allergies : Document ED Reason for Visit : Document Tried to Harm Yourself in the Past? : No Thoughts of Harming/Killing Yourself : No Leilani Garland Rn - 03/01/2019 12:25 EDT Infectious Disease History Infectious Disease History : Chicken pox/Shingles Fever/Chills Last 48 Hours : No Travel To Regions with Travel Advisories : No Travel Outside [place] Within Last 30 Days : No Contact With Traveler to Advisory Region : No Tuberculosis Symptoms : None Leilani Garland Rn - 03/01/2019 12:25 EDT Vital Signs ED Temperature Source : Oral Temperature Mode : Fahrenheit Temperature, Fahrenheit : 97.0 Deg F ED Pain : Yes Clinical Temperature, C : 36.1 Deg C Oxygen Therapy Mode : Room air Peripheral Pulse Rate : 81 bpm Respiratory Rate : 17 Breaths/Min Systolic Blood Pressure : 112 mmHg Diastolic Blood Pressure : 74 mmHg Oxygen Saturation : 100 % Leilani Garland Rn - 03/01/2019 12:25 EDT Allergy (As Of: 03/01/2019 12:27:11 EDT) Allergies (Active) ciprofloxacin Estimated Onset Date: Unspecified ; Created By: Leilani Garland Rn; Reaction Status: Active ; Category: Drug ; Substance: ciprofloxacin ; Type: Allergy ; Updated By: Leilani Garland Rn; Reviewed Date: 03/01/2019 12:26 EDT vancomycin Estimated Onset Date: Unspecified ; Created By: Leilani Garland Rn; Reaction Status: Active ; Category: Drug ; Substance: vancomycin ; Type: Allergy ; Updated By: Leilani Garland Rn; Reviewed Date: 03/01/2019 12:26 EDT Diagnosis Control ED (As Of: 03/01/2019 12:27:11 EDT) Diagnoses(Active) Abdominal pain Date: 03/01/2019 ; Diagnosis Type: Reason For Visit ; Confirmation: Complaint of ; Clinical Dx: Abdominal pain ; Classification: Medical ; Clinical Service: Emergency medicine ; Code: PNED ; Probability: 0 ; Diagnosis Code: [id number] ED Height and Weight Height Source : Stated Height Entry Format : Mckean Height, Feet : 5 ft(Converted to: 152 cm, 60 Inch) Height, Inches : 0 Inch(Converted to: 0 ft 0 Inch, 0.00 cm) Clinical Height : 152.4 cm Weight Source, ED : Critical estimated dosing weight Weight Entry Format : Mckean Weight, Pounds : 190 lb Clinical Dosing Weight : 86.36 kg Body Surface Area (BSA) : 1.83 m2 Body Mass Index : 37.2 kg/m2 (HI) [place] Body Weight (IBW) : 45.16 kg Leilani Garland Rn - 03/01/2019 12:25 EDT Pain Assessment Pain Assessment : Initial assessment Pain Scale Used : 0-10 Scale Leilani Garland Rn - 03/01/2019 12:25 EDT Pain Scale Intensity : 3 Leilani Garland Rn - 03/01/2019 12:25 EDT Image 4 - Images currently included in the form version of this document have not been included in the text rendition version of the form. Electronically signed by Nela Tesfaye Conversion Drying Machine Operator [employer] Cerner at 01/15/2023 8:06 AM CDT documented in this encounter Plan of Treatment Not on file documented as of this encounter Visit Diagnoses Not on filedocumented in this encounter Care Teams Pre School Manager Relationship Specialty Start Date End Date Lloyd Roberts MD [address] [place] [address] PCP - General Family Medicine 09/26/22 03/28/25 Mindy Brandon PA [address] [place] [phone] PCP - General Physician Developer Programmer 03/29/25 documented as of this encounter
--- OUTSIDE RECORDS SUMMARY | 2025-04-19 20:59 | XMS_ITS | Encounter Summary ---
Author Organization [employer] ([place], [place], [place], [place]) Address [address] [place] [address] Care Team Providers Care Staff Rn Name Role Phone Lloyd Roberts MD Primary Care Provider [phone] Reason for Referral * CAT Scan (Routine) - Closed Specialty Diagnoses / Procedures Referred By Ovidio ling Referred To Contact Radiology Diagnoses Solitary pulmonary nodule Procedures CT chest with IV contrast Mindy Brandon PA [address] [place] [address] Phone: tel: fax: Referral ID Status Reason Start Date Expiration Date Visits Re quested Visits Authorized [id number] Closed 12/24/2023 02/22/2024 1 1 Encounter Details Date Type Department Care Team (Late st Contact Info) Description 12/24/2023 Outside Orders [facility] Central Scheduling [address] [place] [address] Mindy Brandon PA [address] [place] [phone] Solitary pulmonary nodule (Primary Dx) Social History Tobacco Use Types [...] Date Josue rded Speak language other than Tajik at home Not on file 10/16/2023 Want help with school or training Not on file 10/16/2023 Substance Use Answer Date Recorded Used prescription meds for non-medical reasons N ot on file 10/16/2023 Used illegal drugs past 12 months Not on file 10/16/2023 Comments Unknown Sex and Gender Information Value Date Recorded Sex Assigned at Female 03/25/2022 6:18 PM CDT Legal Sex Female 6:18 PM CDT Gender Identity Female 03/25/2022 6:18 PM CDT Sexual Orientation Not on file documented as of this encounter Plan of Treatment Not on file documented as of this encounter Results * CT chest with IV contrast (12/28/2023 1:21 PM EDT) Anatomical Region Laterality Modality Chest, Lung Computed Tomogra phy (CT) 12/28/2023 2:46 PM EDT Impressions 12/28/2023 2:48 PM EDT No significant abnormality.. Images reviewed, interpreted and dictated by Dr. Сергей Dhillon MD Narrative 12/28/2023 2:[address] OF THE CHEST HISTORY: Pulmonary nodules. PROCEDURE: Routine axial images were obtained from the lung apices to below the diaphragm following IV contrast administration. This study was performed with techniques to keep radiation doses as low as reasonably achievable, (ALARA). Individualized dose reduction techniques using automated exposure control or adjustment of mA and/or kV according to the patient size were employed. 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 The lungs are otherwise clear. There are no significant pulmonary nodules. There is no pleural disease, significant adenopathy or osseous abnormality. Procedure Note Сергей Dhillon MD - 12/28/2023 CT OF THE CHEST HISTORY: Pulmonary nodules. PROCEDURE: Routine axial images were obtained from the lung apices to below the diaphragm following IV contrast administration. This study was performed with techniques to keep radiation doses as low as reasonably achievable, (ALARA). Individualized dose reduction techniques using automated exposure control or adjustment of mA and/or kV according to the patient size were employed. 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 The lungs are otherwise clear. There are no significant pulmonary nodules. There is no pleural disease, significant adenopathy or osseous abnormality. IMPRESSION: No significant abnormality.. Images reviewed, interpreted and dictated by Dr. Сергей Dhillon MD Mindy LY IM CT ORDERABLES Final Result documented in this encounter Visit Diagnoses Diagnosis Solitary pulmonary nodule- Primary Solitary pulmonary nodule documented in this encounter Care Teams Staff Rn Relationship Specialty Start Date End Date Lloyd Roberts MD [address] [place] [address] PCP - General Family Medicine 09/26/22 03/28/25 documented as of this encounter
--- OUTSIDE RECORDS SUMMARY | 2025-04-19 20:59 | XMS_ITS | Encounter Summary ---
Author Organization [employer] ([place], [place], [place], [place]) Address [address] [place] [address] Care Team Providers Care Title Supervisor Name Role Phone Lloyd Roberts MD Primary Care Provider [phone] Reason for Referral * Surgical (Routine) - Authorized Specialty Diagnoses / Procedures Referred By Contac t Referred To Contact General Surgery Diagnoses Blood in stool Mindy Brandon PA [address] [place] [phone] Phone: tel: fax: Hector Uriarte MD [address] [facility] [address] [place] [address] Phone: tel: fax: Referral ID Status Reason Start Date Expiration Date Visits Requested Visits Authorized [id number] Authorized Specialty Services Required 03/09/2025 03/09/2026 1 1 Encounter Details Date Type Department Care Team (Late st Contact Info) Description 03/09/2025 Outside Orders [facility] General Surgery [address] [place] [address] Mindy Brandon PA [address] [place] [phone] Blood in stool (Primary Dx) Social History Tobacco Use Types [...] Date Josue rded Speak language other than Trinidadian at home Not on file 10/16/2023 Want [...] as of this encounter Plan of Treatment Scheduled Referrals Name Type Priority Associated Diagnoses Order Schedule Ambulatory referral to General Surgery Outpatient Referral Routine Blood in stool Expected: 03/09/2025, Expires: 03/09/2026 documented as of this encounter Visit Diagnoses Diagnosis Blood in stool- Primary documented in this encounter Care Teams Title Supervisor Relationship Specialty Start Date End Date Lloyd Roberts MD [address] [place] [phone] PCP - General Family Medicine 09/26/22 03/28/25 documented as of this encounter
--- OUTSIDE RECORDS SUMMARY | 2025-04-19 20:59 | XMS_ITS | Encounter Summary ---
Author Organization [employer] ([place], [place], [place], [place]) Address [address] [place] [address] Care Team Providers Care Apprentice Plumber Name Role Phone Lloyd Roberts MD Primary Care Provider [phone] Mindy Brandon Primary Care Provider Encounter Details Date Type Department Care Team (Late st Contact Info) Description 03/01/2019 Transcribed Document [facility] [place] [address] ProviderAlexander MD [address] [place] [address] Social History Tobacco Use Types Packs/Day [...] Conversion Note - Alexander ProviderMD - 03/01/2019 1:20 PM CDT Patient: SAMARA LEAL Age: 48 years Sex: Female : 1970 Associated Diagnoses: Abdominal pain; Dehydration Author: PIERCE PAULINO PA-C Basic Information Time seen: Date & time 03/01/2019 12:31:00. History source: Patient. Arrival mode: Private vehicle. History limitation: None. Additional information: Chief Complaint from Nursing Triage Note : Chief Complaint 03/01/2019 12:25 EDT Chief Complaint pt c/o LLQ pain starting last night. pt denies urinary symptoms. -n/-v . History of Present Illness The patient presents with abdominal pain. The onset was 1 days ago. The course/duration of symptoms is fluctuating in intensity. The character of symptoms is sharp. The degree at onset was minimal. The Location of pain at onset was left, lower and abdominal. The degree at present is minimal. The Location of pain at present is left, lower and abdominal. Radiating pain: none. The exacerbating factor is none. The relieving factor is none. Therapy today: none. Risk factors consist of obesity. Associated symptoms: denies chest pain, denies nausea, denies vomiting, denies diarrhea, denies back pain, denies shortness of breath, denies fever, denies chills, denies headache and denies dizziness. Review of Systems Constitutional symptoms: Negative except as documented in HPI. Skin symptoms: Negative except as documented in HPI. Respiratory symptoms: Negative except as documented in HPI. Cardiovascular symptoms: Negative except as documented in HPI. Gastrointestinal symptoms: Abdominal pain. Genitourinary symptoms: Negative except as documented in HPI. Musculoskeletal symptoms: Negative except as documented in HPI. Neurologic symptoms: Negative except as documented in HPI. Psychiatric symptoms: Negative except as documented in HPI. Endocrine symptoms: Negative except as documented in HPI. Hematologic/Lymphatic symptoms: Negative except as documented in HPI. Allergy/immunologic symptoms: Negative except as documented in HPI. Additional review of systems information: All other systems reviewed and otherwise negative. Health Status Allergies: Allergic Reactions (Selected) Severity Not Documented Ciprofloxacin- No reactions were documented. Vancomycin- No reactions were documented.. Past Medical/ Family/ Social History Medical history Reviewed as documented in chart. Surgical history: No active procedure history items have been selected or recorded.. Family history: Not significant. Social history: Social & Psychosocial Habits Home/Environment 03/01/2019 Living situation: Homeless/Care Home Tobacco 03/01/2019 Smoking Status Former smoker, quit more . Problem list: No qualifying data available . Physical Examination Vital Signs Vital Signs/Vital Measures 03/01/2019 12:25 EDT Temperature Source Oral Temperature Mode Fahrenheit Temperature, Fahrenheit 97.0 Deg F Clinical Temperature, C 36.1 Deg C Peripheral Pulse Rate 81 bpm Respiratory Rate 17 Breaths/Min Systolic Blood Pressure 112 mmHg Diastolic Blood Pressure 74 mmHg Oxygen Saturation 100 % Oxygen Therapy Mode Room air . Measurements 03/01/2019 12:25 EDT Height Source Stated Height Entry Format Krysten Height/Length, [place] (ft) 5 ft Height/Length [place] 0 Inch CLINICALHEIGHT 152.4 cm [place] Body Weight 45.16 kg Weight Source, ED Critical estimated dosing weight Weight Entry Format [place] Weight [place] lb 190 lb CLINICALWEIGHT 86.36 kg Body Surface Area (BSA) 1.83 m2 Body Mass Index 37.2 kg/m2 HI . Oxygen Saturation 03/01/2019 12:25 EDT Oxygen Saturation 100 % . General: Alert, no acute distress. Skin: Warm, dry, pink. Head: Normocephalic. Neck: Supple. Eye: Normal conjunctiva. Ears, nose, mouth and throat: Oral mucosa moist. Cardiovascular: Regular rate and rhythm, No murmur. Respiratory: Lungs are clear to auscultation, respirations are non-labored, breath sounds are equal. Chest wall: No tenderness. Back: Nontender. Musculoskeletal: Normal ROM. Gastrointestinal: Soft, Non distended, Tenderness: Mild, left upper quadrant, left lower quadrant, Guarding: Negative. Neurological: Alert and oriented to person, place, time, and situation, normal motor observed, normal speech observed, normal coordination observed. Psychiatric: Cooperative, appropriate mood & affect, normal judgment. Medical Decision Making Differential Diagnosis: Abdominal pain. Documents reviewed: Emergency department nurses' notes, emergency department records, prior records. Orders Include Previous Orders (Selected) Inpatient Orders Ordered Normal Saline 1,000 mL: 1,000 mL/Hr, IntraVENous Saline Lock Insert: Ordered (Exam Completed) CT Abdomen Pelvis W: Completed .Automated Differential: .Urinalysis Microscopic: CBC w/ Auto Diff: CMP Comprehensive Metabolic Panel: ED Adult Fall Risk Assessment: ED Adult Triage: ED Clinical Reconciliation: ED painter and body work: Lactic Acid Level with Reflex if Indicated: Lipase Level: Urinalysis w Microscopic if Indicated: iopamidol: 75 mL, IV Push, ADHOC. Results review: All Results 03/01/2019 13:02 EDT Specimen Type, Urine POC Urine 03/01/2019 12:50 EDT Sodium Level 137 mmol/L Potassium Level 3.5 mmol/L Chloride Level 107 mmol/L Carbon Dioxide Level 24 mmol/L Anion Gap 10 Glucose Level 97 mg/dL Blood Urea Nitrogen 32 mg/dL HI Creatinine Level 1.20 mg/dL HI eGFR 58 mL/min/1.73m2 LOW eGFR NonAfrican 48 mL/min/1.73m2 LOW Bun/Creatinine 26.7 HI Calcium Level 9.1 mg/dL Protein Total 7.8 Gram/dL Albumin Level 4.0 Gram/dL Globulin 3.8 Gram/dL A/G Ratio 1.1 Bilirubin Total 1.0 mg/dL Alk Phos 106 Units/Liter AST 21 Units/Liter ALT 33 Units/Liter Lipase Level 119 Units/Liter Lactic Acid Level 0.7 mmol/L WBC 6.7 K/uL RBC 4.33 Million/uL Hgb 12.5 g/dL Hct 36.5 % MCV 84.3 fL MCH 28.9 pg MCHC 34.2 Gram/dL Platelet Count 223 K/uL MPV 10.5 fL RDW 14.4 % Neut % 62.8 % Neut # 4.18 K/uL Lymph % 29.4 % Lymph # 1.96 x10(3)/uL [place] % 6.6 % [place] # 0.44 K/uL Eos % 0.7 % Eos # 0.05 x10(3)/uL Baso % 0.1 % Baso # 0.01 x10(3)/uL Slide Review No IG# 0.03 x10(3)/uL IG% 0.40 % Urine Type U CleanCatch Urine Color Yellow Urine Appearance Clear Urine Specific [place] 1.011 Urine pH Dipstick 5.5 LOW Urine Leukocyte Esterase Moderate Urine Nitrite Negative Urine Protein Dipstick Negative Urine Glucose Dipstick Negative Urine Ketones Dipstick Negative Urine Urobilinogen Dipstick 1.0 EU/dL Urine Bilirubin Dipstick Negative Urine Blood Dipstick Negative Ur WBC 0-2 /HPF Ur Bacteria Trace Ur Squamous Epithelial Cells 0-2 /HPF . Radiology results: Radiology Results (Last 48 hours) [id number] -- 03/01/2019 12:16 CT Abdomen Pelvis W (03/01/2019 13:56) Result: PROCEDURE: CT ABDOMEN AND PELVIS WITH INTRAVENOUS CONTRASTHISTORY: Left-sided abdominal pain. Nausea and vomiting.PROCEDURE: The patient was injected with intravenous contrast. Oralcontrast was not administered, at request of ordering clinician. Axialimages were obtained from the lung bases to the pubic symphysis bycomputed tomography. This study was performed with techniques to keepradiation does as low as reasonably achievable, (ALARA). Individualizeddose reduction techniques using automated exposure control or adjustmentof mA and/or kV according to the patient size were employed. FINDINGS: No previous. Cholecystectomy clips. Slight biliary ductalprominence is likely related to the postcholecystectomy state. Spleensize is near the upper limits of normal. Abdominal solid organsdemonstrate no acute abnormality. Best visualized with delayed imagingis an ovoid 1.3 cm low-attenuation focus in the mid lateral left kidney,measuring 37 Hounsfield units. Evaluation of bowel is limited withoutoral contrast. No bowel obstruction. Normal appendix. Moderate amount ofstool in the colon. No distinct acute bowel-related inflammatory changeidentified. Midline ventral hernia of the anterior pelvic wall. A loopof small bowel extends towards the defect but not through the defect.Urinary bladder is unremarkable. Uterus is absent. No acute process atthe base of the chest. Degenerative changes are present in the spine.IMPRESSION:1. Moderate amount of stool in colon.2. Left renal lesion. This is slightly more dense than expected for asimple cyst. A cyst is favored but further and more definitivecharacterization with renal mass protocol CT would be useful.3. Other chronic appearing findings. . Reexamination/ Reevaluation Time: 03/01/2019 14:31:00 . Course: well controlled. Impression and Plan Diagnosis Abdominal pain - Discharge, Emergency medicine, Medical Dehydration - Discharge, Emergency medicine, Medical Plan Condition: Improved, Stable. Disposition: Discharged Admit/Transfer/Discharge: Discharge (Order): Start: 03/01/2019 14:35 EDT, Discharge to: Home. Prescriptions: Prescription [facility]: Zofran ODT 4 mg oral tablet, disintegrating (Prescribe): 1 Tab, Oral, TID, 12 Tab, 0 Refill(s). Patient was given the following educational materials: Abdominal Pain, Adult, Dehydration, Adult, Dehydration, Adult, Abdominal Pain, Adult. Follow up with: Follow up with primary care provider Within 2 to 3 days Follow up with GI and consider colonscopy. Return to ER if symptoms worse or different. Follow up with Primary Care related to renal cyst and have CT for evaluation. ; February Within 5 to 7 days; KETAN ESCOBAR Within 2 to 3 days. Counseled: Patient, Regarding diagnosis, Regarding diagnostic results, Regarding treatment plan, Regarding prescription, Patient indicated understanding of instructions. Notes: I certify that the MLP/COMEDIAN performed the services as delegated. . Electronically signed by Brien, [facility] Conversion Automobile Mechanic Motor Cerner at 01/15/2023 8:15 AM CDT documented in this encounter Plan of Treatment Not on file documented as of this encounter Visit Diagnoses Not on filedocumented in this encounter Care Teams Apprentice Plumber Relationship Specialty Start Date End Date Lloyd Roberts MD [address] [place] [phone] PCP - General Family Medicine 09/26/22 03/28/25 Mindy Brandon PA [address] [place] [phone] PCP - General Physician Kiln Puller 03/29/25 documented as of this encounter
--- OUTSIDE RECORDS SUMMARY | 2025-04-19 20:59 | XMS_ITS | Clinical Summary ---
Author Organization [employer] ([place], [place], [place], [place]) Address [address] [place] [address] Care Team Providers Care New Car Get Ready Mechanic Name Role Phone Mindy Brandon Primary Care Provider Allergies Active Allergy Reactions Criticality Noted Date Comments Ciprofloxacin Swelling,Rash High 09/26/2022 Vancomycin Swelling,Rash High 12/09/2013 Medications aspirin 81 MG EC tablet TAKE 1 TABLET 1 TIME EACH DAY Active metoprolol succinate (TOPROL-XL) 50 MG 24 hr tablet TAKE 1 TABLET 1 TIME EACH DAY Active amLODIPine (NORVASC) 5 MG tablet TAKE 1 TABLET 1 TIME EACH DAY Active lisinopriL-hyd roCHLOROthiazi de (ZESTORETIC, PRINZIDE) 20-25 mg per tablet TAKE 1 TABLET 1 TIME EACH DAY Active rOPINIRole (REQUIP) 0.25 MG tablet TAKE 1 TABLET 1 TIME EACH DAY AT BEDTIME Active Emgality Pen 120 mg/mL pen Inject 1 mL (120 mg total) under the skin every 30 (thirty) days. 5 Active Zavzpret 10 mg/actuation spry SPRAY 1 TIME IN EACH NOSTRIL 1 TIME EACH DAY NEEDED FOR HEADACHE 5 Active Nurtec ODT 75 mg TbDL TAKE 1 TABLET 1 TIME EACH DAY NEEDED FOR HEADACHE 5 Active nicotine polacrilex (NICORETTE) 4 MG gum Chew 1 each (4 mg total) as needed for smoking cessation. Active busPIRone (BUSPAR) 10 MG tablet Take 1 tablet (10 mg total) by mouth 2 (two) times daily. Active hydrOXYzine (ATARAX) 25 MG tablet Take 1 tablet (25 mg total) by mouth. Active venlafaxine XR (EFFEXOR-XR) 37.5 MG 24 hr capsule Take 1 capsule (37.5 mg total) by mouth daily with breakfast. Active albuterol 90 mcg/actuation inhaler Inhale by mouth every 6 (six) hours as needed for wheezing. Active promethazine (PHENERGAN) 12.5 MG tablet TAKE 1 TABLET 3 TIMES EACH DAY NEEDED 025 Discontinued SUMAtriptan (IMITREX) 100 MG tablet TAKE 1 TABLET AT START OF HEADACHE. MAY TAKE ANOTHER TABLET IN 2 HOURS IF NEEDED. DO NOT TAKE MORE THAN 2 TABLETS IN 24 HOURS. 025 Discontinued Active Problems Problem Noted Date Diagnosed Date Acute lateral meniscus tear of left knee 025 Complex tear of lateral meniscus of left knee, s equela 03/16/2025 Recurrent left knee instability 02/15/2025 Internal derangement of left knee 02/15/2025 Encounters Date Type Department Care Team Description 04/05/2025 Hospital Encounter [facility] Operating Room [address] [place] [phone] Сергей Sandoval MD 04/04/2025 11:59 PM EDT Anesthesia Event [facility] Operating Room [address] [place] [phone] Ginna Cardona CRNA 03/23/2025 8:15 AM EDT Office Visit [facility] [address] [phone] Сергей Sandoval MD Complex tear of lateral meniscus of left knee, sequela (Primary Dx); Recurrent left knee instability; Acute lateral meniscus tear of left knee; Pre-op testing 03/16/2025 2:15 PM EDT Office Visit [address] [phone] Lizz Hoang, RADHAC Complex tear of lateral meniscus of left knee, sequela (Primary Dx) 03/14/2025 2:12 PM EDT - 03/14/2025 11:59 PM EDT Hospital Encounter [facility] MRI [address] [place] [address] Lizz Hoang PA-C Recurrent left knee instability Discharge Disposition: Home or Self Care 03/14/2025 Travel 03/09/2025 Outside Orders [facility] General Surgery [address] [place] [address] Mindy Brandon PA Blood in stool (Primary Dx) 02/15/2025 2:10 PM EDT Ancillary Procedure [facility] Orthopedics [address] [phone] Lizz Hoang PA-C 02/15/2025 2:00 PM EDT Office Visit [facility]oped[facility] [address] [phone] Lizz Hoang PA-C Recurrent left knee instability (Primary Dx); Internal derangement of left knee from Last 3 Months Family History Medical History Relation Name Comments No Known Problem Brother Heart failure Maternal Grandfather Heart failure Maternal Grandmother Breast cancer Mother Relation Name Status Comments Brother Alive Father Unknown Maternal Grandfather Maternal Grandmother Mother Alive Social History Tobacco Use Types Packs/Day Years [...] Date Josue rded Speak language other than Fijian at home Not on file 10/16/2023 Want [...] PM CDT Sexual Orientation Not on file Last Filed Vital Signs Vital Sign Reading Time Taken Comments Blood Pressure 117/81 03/23/2025 8:45 AM EDT Pulse 93 03/23/2025 8:45 AM EDT Temperature 36.6 C (97.9 F) 09/11/2024 5:21 PM EST Respiratory Rate 22 09/11/2024 5:21 PM EST Oxygen Saturation 99% 09/11/2024 5:21 PM EST Inhaled Oxygen Concentration - - Weight 85.7 kg (189 lb) 04/03/2025 7:00 AM EDT s tated Height 152.4 cm (5') 03/23/2025 8:45 AM EDT Body Mass Index 36.91 03/23/2025 8:45 AM EDT Plan of Treatment Health Maintenance Due Date Last Done Comments CT Colonography 1970 Colonoscopy 1970 Colorectal Cancer Screening 1970 FOBT/FIT 1970 Fit-DNA (Cologuard) 1970 Sigmoidoscopy 1970 Depression Screening (12+) 1981 HIV Screening 1984 Hepatitis C Screening 1987 Pneumococcal 50+ years (1 of 2 - PCV) 1988 Pap Smear 1990 Breast Cancer Screening 2009 Lipid Panel 2014 Shingles Vaccine (Zoster) (1 of 2) 2019 COVID-19 VACCINE (1 - season) 2024 Influenza Vaccine (#1) 2025 Tobacco Cessation Counseling and Screening (12+) 04/03/2026 04/03/2025 DTAP/TDAP/TD VACCINES (4 - T d or Tdap) 10/25/2033 10/25/2023, 09/30/2012, 12/25/1997 Procedures Procedure Name Priority Date/Time Associated Diagnosis Comments MR LOWER EXTREMITY JOINT ONLY WITHOUT IV CONTRAST LEFT Routine 03/14/2025 2:44 PM EDT Recurrent left knee instability XR KNEE 1 OR 2 VIEWS LEFT Routine 02/15/2025 2:09 PM EDT Recurrent left knee instability from Last 3 Months Results * MR lower extremity joint only [...] interpreted, and dictated by Fernanda Montenegro MD Lizz Hoang PA-C [facility] MRI ORDERABLES Final Re sult * XR knee 1 or 2 views left (02/15/2025 2:09 PM EDT) Anatomical Region Laterality Modality Thigh, Knee, Leg X-Ray Narrative 02/15/2025 3:09 PM EDT X-Rays were performed and interpreted today in office of left knee, 2 views weight bearing revealing: Maintained joint spaces with early osteophyte formation in the lateral and patellofemoral compartments. There is no obvious evidence of acute osseous abnormality. Lizz Hoang PA-C [facility] KEM MOREJON Final Result from Last 3 Months Insurance [facility] Care Teams New Car Get Ready Mechanic Relationship Specialty Start Date End Date Mindy Brandon PA [address] [place] [phone] PCP - General Physician Taker Off Drying Kiln 03/29/25
--- OUTSIDE RECORDS SUMMARY | 2025-04-19 20:59 | XMS_ITS | Encounter Summary ---
Author Organization [employer] ([place], [place], [place], [place]) Address [address] [place] [address] Care Team Providers Care Video Game Producer Name Role Phone Lloyd Roberts MD Primary Care Provider [phone] Mindy Brandon Primary Care Provider Encounter Details Date Type Department Care Team (Late st Contact Info) Description 03/01/2019 Transcribed Document [facility] [place] [facility] [place] [address] ProviderAlexander MD [address] [place] [id number] Social History Tobacco Use Types Packs/Day [...] Conversion Note - Alexander ProviderMD - 03/01/2019 2:47 PM CDT ED Discharge Entered On: 03/01/2019 14:48 EDT Performed On: 03/01/2019 14:47 EDT by Jaja Villalba, knot picker cloth Process Patient Disposition : Discharge Personal Belongings With Patient : Yes Patient Education Completed : Yes Teaching Evaluation : Verbalizes understanding IV Discontinued : Yes Nursing Documentation Completed : Yes Jaja Villalba RN - 03/01/2019 14:47 EDT ED Discharge Discharge To : Home with ambulatory/outpatient follow-up Mode Of Departure : Ambulatory Accompanied By : Unaccompanied Discharge Instructions Reviewed With, Opportunity For Questions Given : Patient Prescriptions Given to Patient : Yes Number of Prescriptions Given : 1 Jaja Villalba, RN - 03/01/2019 14:47 EDT documented in this encounter Plan of Treatment Not on file documented as of this encounter Visit Diagnoses Not on filedocumented in this encounter Care Teams Video Game Producer Relationship Specialty Start Date End Date Lloyd Roberts MD [address] [place] [phone] PCP - General Family Medicine 09/26/22 03/28/25 Mindy Brandon PA [address] [place] [phone] PCP - General Physician Parts Interpreter 03/29/25 documented as of this encounter
--- OUTSIDE RECORDS SUMMARY | 2025-04-19 20:59 | XMS_ITS | Referral Summary ---
Author Organization [employer] ([place], [place], [place], [place]) Address [address] [place] [address] Care Team Providers Care Hvac Mechanical Engineer Name Role Phone Mindy Brandon Primary Care Provider Encounters Date Type Department Care Team Description 04/04/2025 11:59 PM EDT Anesthesia Event [facility] Operating Room [address] [place] [phone] Ginna Cardona CRNA 04/05/2025 Hospital Encounter [facility] Operating Room [address] [place] [phone] Сергей Sandoval MD 03/23/2025 8:15 AM EDT Office Visit [address] [phone] Сергей Sandoval MD Complex tear of lateral meniscus of left knee, sequela (Primary Dx); Recurrent left knee instability; Acute lateral meniscus tear of left knee; Pre-op testing 03/16/2025 2:15 PM EDT Office Visit [address] [phone] Lizz Hoang PA-C Complex tear of lateral meniscus of left knee, sequela (Primary Dx) 03/14/2025 Travel 03/14/2025 2:12 PM EDT - 03/14/2025 11:59 PM EDT Hospital Encounter [facility] MRI [address] [place] [address] Lizz Hoang PA-C Recurrent left knee instability Discharge Disposition: Home or Self Care 03/09/2025 Outside Orders [facility] General Surgery [address] [place] [address] Mindy Brandon PA Blood in stool (Primary Dx) 02/15/2025 2:10 PM EDT Ancillary Procedure [facility] Orthopedic[address] [phone] Lizz Hoang PA-C 02/15/2025 2:00 PM EDT Office Visit [address] [phone] Lizz Hoang PA-C Recurrent left knee instability (Primary Dx); Internal derangement of left knee from Last 3 Months Allergies Active Allergy Reactions Criticality Noted Date [...] 02/15/2025 Internal derangement of left knee 02/15/2025 Social History Tobacco Use Types Packs/Day Years [...] Date Josue rded Speak language other than Iraqi at home Not on file 10/16/2023 Want [...] 03/23/2025 8:45 AM EDT Plan of Treatment Not on file Procedures Procedure Name Priority Date/Time Associated Diagnosis [...] dictated by Fernanda Montenegro MD us Lizz Hoang PA-C [facility] MRI ORDERABLES Final [...] no obvious evidence of acute osseous abnormality. us Lizz Hoang PA-C [facility] DIAGNOSTIC IMAGING KEM MOREJON Final Result from Last 3 Months [facility] Care Teams Hvac Mechanical Engineer Relationship Specialty Start Date End Date Mindy Brandon PA [address] [place] [phone] PCP - General Physician Access Clerk 03/29/25
--- OUTSIDE RECORDS SUMMARY | 2025-04-19 20:59 | XMS_ITS | Encounter Summary ---
Author Organization [employer] ([place], [place], [place], [place]) Address [address] [place] [address] Care Team Providers Care Talent Recruiter Name Role Phone Lloyd Roberts MD Primary Care Provider [phone] Mindy Brandon Primary Care Provider Encounter Details Date Type Department Care Team (Late st Contact Info) Description 03/01/2019 Transcribed Document [facility] Family Medicine [facility] [place] [address] ProviderAlexander MD [address] [place] [id number] Social History Tobacco Use Types Packs/Day [...] ProviderMD - 03/01/2019 12:16 PM CDT ED Assessment Entered On: 03/01/2019 14:06 EDT Performed On: 03/01/2019 14:04 EDT by Jaja Villalba, VC++ DEVELOPER Quick Look Assessment Level of Consciousness : Alert, Awake Affect/Behavior : Appropriate Orientation : Oriented x 4 Skin Temperature : Warm Skin Description : Dry Jaja Villalba RN - 03/01/2019 14:04 EDT ED General-Functional Assess Information Obtained From : Patient Communication Barrier : None Primary Language : Vietnamese Any Spiritual/Cultural Needs or Requests : No Currently in Unsafe Situation : No Jaja Villalba RN - 03/01/2019 14:04 EDT Social Habits Smoking Status : Former smoker, quit more than 30 days ago Smokeless Tobacco Status : Never Desires Tobacco Cessation Calc : 0 aJja Villalba RN - 03/01/2019 14:04 EDT Social History (As Of: 03/01/2019 14:06:41 EDT) Tobacco: Former smoker, quit more than 30 days ago Smoking Status. (Last Updated: 03/01/2019 13:20:05 EDT by PIERCE PAULINO PA-C) Home/Environment: Living situation: Homeless/Senior Living. (Last Updated: 03/01/2019 13:19:47 EDT by PIERCE PAULINO PA-C) Gastrointestinal ED Gastrointestinal Assessment WDL : WDL with exceptions Gastrointestinal Symptoms : Abdominal pain Jaja Villalba RN - 03/01/2019 14:04 EDT documented in this encounter Plan of Treatment Not on file documented as of this encounter Visit Diagnoses Not on filedocumented in this encounter Care Teams Talent Recruiter Relationship Specialty Start Date End Date Lloyd Roberts MD [address] [place] [phone] PCP - General Family Medicine 09/26/22 03/28/25 Mindy Brandon PA [address] [place] [phone] PCP - General Physician Teleradiologist 03/29/25 documented as of this encounter
--- OUTSIDE RECORDS SUMMARY | 2025-04-19 20:59 | XMS_ITS | Continuity of Care Document ---
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 MIX AND TAKE ACCORDING TO PACKAGE AND PRESCRIBE R INSTRUCTI ONS. 06/11 completed Not Available Not Available Not Available melatonin 5 mg tablet 06/18 completed Not Available Not Available Not Available magnesium 400 mg (as magnesium oxide) capsule Take 1 capsule every day by oral route for 5 days. 03/30 completed Not Available Not Available Not Available naloxone 4 mg/actuatio n nasal spray 03/01 completed Not Available Not Available Not Available Emgality Pen 120 mg/mL subcutaneou s pen injector INJECT TJE CONTENTS OF ONE SYRINGE UNDER THE SKIN ONCE A MONTH active Not Available Not Available No t Available Ubrelvy 50 mg tablet TAKE 1 TABLET 1 TIME EACH DAY NEEDED FOR MIGRAINE HEADACHE 03/08 completed Not Available Not Available Not Available Nurtec ODT 75 mg disintegrat ing tablet TAKE 1 TABLET 1 TIME EACH DAY NEEDED FOR HEADACHE active Not Available Not Available No t Available Zavzpret 10 mg/actuatio n nasal spray SPRAY 1 TIME IN EACH NOSTRIL 1 TIME EACH DAY NEEDED FOR HEADACHE active Not Available Not Available No t Available Vitals Date Recorded Body height Body mass index (BMI) Body weight Oxygen saturation Oxygen saturation in Arterial blood by Pulse oximetry Heart rate Systolic And Diastolic Provider Name and Address Organization Details Last Updated DateTime 5 152.4 cm 37.7 kg/m2 22035.3 3 g 97 % 97 % 107 /min 136/86 mm[Hg] Samara MAKI [facility] & [place] 5 13:14:28 Social History Question Answer Notes LastModified by [employer] at work Details LastModified Time Tobacco Smoking Status Former Smoker Samara Killian null, [place] & [place] 06/11/2022 08:59:52 Do You Have An Advance Directive? No [email or web address] Information not available 01/05/2025 Are You Blind Or Do You Have Difficulty Seeing? No [email or web address] Information not available 06/11/2022 Are You Deaf Or Do You Have Serious Difficulty Hearing? No Information not available 11/18/2023 What Was The Date Of Your Most Recent Tobacco Screening? 12/23/2024 [email or web address] Information not available 01/05/2025 Are You Passively Exposed To Smoke? Yes [email or web address] Information not available 01/05/2025 How Much Tobacco Do You Smoke? 0.5 PPD [email or web address] Information not available 01/05/2025 How Many Years Have You Smoked Tobacco? 3 [email or web address] Information not available 01/05/2025 Sex: Unknown Functional Status Question Answer Note LastModified by [facility] at work Details LastModified Time Do you use any illicit or recreational drugs? No [email or web address] Information not available 06/11/2022 Do you or have you ever used any other forms of tobacco or nicotine? No Information not available 11/18/2023 What is your level of alcohol consumption? None [email or web address] Information not available 06/11/2022 Do you or have you ever used smokeless tobacco? Never used smokeless tobacco [email or web address] Information not available 01/05/2025 What is your exercise level? Occasional [email or web address] Information not available 01/05/2025 Mental Status Question Answer Note LastModified by Organization D etails LastModified Time Do you feel stressed (tense, restless, nervous, or anxious, or unable to sleep at night)? [id number] [email or web address] Information not available 01/05/2025 Family History Relationship Description Onset Age of this Age Resolved Age Notes LastModified by Organization Details LastModified Time Mother Malignant tumor of breast [email or web address] Not available 2024 09:14:52 Maternal Aunt Disorder of endocrine system pt. added direct ly (07/07) [email or web address] Not available 12/22/2024 16:26:35 Paternal Uncle Disorder of endocrine system pt. added direct ly (07/07) [email or web address] Not available 12/22/2024 16:26:35 Medical History Condition Response Blood Transfusion Y Hernia Y Depression Y Heart Attack (IN) Y Anxiety Disorder Y Arthritis Y Congestive Heart Failure (CHF) Y Back Problems Y Stroke Y Hepatitis Y Headaches Y Hypertension Y Osteoporosis Y Gynecological History Statement/Question Response Menses Monthly N Current Control Method None Sexually Active? N Obstetrics History GPAL:G 0 P 0 0 0 0 Immunizations Vaccine Type Date Status Note Provider Nam e and Address Organization Details Recorded Time Tdap 3 completed Samara Lin null, [place] - [facility] [place] & [place] 10/01/2022 08:51:41 Td (adult), 2 Lf tetanus toxoid, preservative free, adsorbed 8 completed Samara Lin null, [place] [facility] [place] & [place] 10/01/2022 08:51:41 Hep A, adult 9 completed Samara Lin null, [place] [facility] [place] 10/01/2022 08:51:41 Tdap 4 completed Amanda Zhu null, [place] [facility] [place] 03/30/2025 09:28:06 Past Encounters Encounter ID Performer Location Encounter Start Date Encounter Closed Date Diagnosis/Indication Diagnosis SNOMED-CT Code Diagnosis ICD10 Code Diagnosis Note [id number] Bayron Parsons M.D [facility] [address],[place] [address] [place] SUMMERS [address] 02/08/2025 13:08:34 02/08/2025 13:53:10 Refractory migraine without aura 212792236 G43.711 Dizziness 897426024 R42 Syncope and collapse 309 161611 R55 [id number] Sahil Avalos MD [address] [address] 02/07/2025 14:49:30 02/07/2025 15:34:20 Degeneration of lumbar intervertebral disc 81668196 M51.701 [id number] Sahil Avalos MD [address] [address] 02/21/2025 13:08:59 02/21/2025 14:47:18 Restless legs 31541770 G25.81 Essential hypertension 10154822 I10 Generalize d anxiety disorder 84869649 F41.1 Gouty arth ritis of right great toe 1546796365 150061 M10.9 Pain in bi lateral legs 1142150069 1394874 M79.604 M79.605 Peripheral vascular disease 795923585 I73.9 [id number] Sahil Avalos MD [address] [address] 03/08/2025 12:59:37 03/08/2025 13:51:46 Gouty arthritis of right great toe 0171030125 386784 M10.9 Hematochezia 409799125 K 92.1 Pain in right foot 53688 64032 32876 M79.671 Acute cellulitis 4262423 009 L03.90 Health Concerns Section Related Observation LastModified by Organization Detai ls LastModified Time None Recorded Concern Status LastModified by Organization Details LastModified Time None Recorded Payers Encounter Date Sequence Insurance Name Policy Number Policy Bui Covered Member ID Bui Member ID Guarantor Name 03/08/2025 1 [employer] [facility] (MEDICAID HMO) Samara Casiano Debra [id number] Samara Casiano Debra Notes Date Note Type Note Provider Name and Address Organization Details Recorded Time 03/08/2025 text/html Samara is a 54y o female here for evaluation for pain in her right big toe joint. She was treated for gouty arthritis two weeks ago with a steroid injection and steroid dose pack. She reports the steroids did not relieve her symptoms at all and her pain has gotten worse with time. She reports redness, swelling, and pain with movement of her toe. She denies fever, numbness, tingling. She has been taking ibuprofen and tylenol with no relief.A week ago, she went to the ER after dropping a sledgehammer on her right foot at the base of her big toe. Imaging in ER showed no fractures. She reports the pain today feels more like a gouty arthritis attack. She also reports black, tarry stool 2 days ago. She has a history of blood in her stool. Mindy Tarango PA-C [address] [facility] [facility],[address], [place], [address], [place] [facility] [place] & [place] 03/08/2025 15:53:59 OBGyn Episode No OBEpisode recorded.
--- OUTSIDE RECORDS SUMMARY | 2025-04-19 20:59 | XMS_ITS | Encounter Summary ---
Author Organization [employer] ([place], [place], [place], [place]) Address [address] [place] [address] Care Team Providers Care Refrigeration Person Name Role Phone Lloyd Roberts MD Primary Care Provider [phone] Encounter Details Date Type Department Care Team (Latest Contact Info) Description 03/14/2025 Travel Social History Tobacco Use Types Packs/Day Years [...] Date Josue rded Speak language other than Maltese at home Not on file 10/16/2023 Want [...] on filedocumented in this encounter Care Teams Refrigeration Person Relationship Specialty Start Date End Date Lloyd Roberts MD [address] [place] [id number] PCP - General Family Medicine 09/26/22 03/28/25 documented as of this encounter
--- OUTSIDE RECORDS SUMMARY | 2025-04-19 20:59 | XMS_ITS | Encounter Summary ---
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 [address] SAMARA LEAL :1970 Visit Time:03/01/2019 Your Visit Summary Your Care Team Admitting Physician - CARLEE CHIRINOS MD Attending Physician - CARLEE CHIRINOS MD Primary Care Physician - KETAN ESCOBAR CL) Referring Physician - CARLEE CHIRINOS MD Your Diagnosis Abdominal pain Abdominal pain Dehydration Patient Portal Reminder: Be sure to sign up for the [facility] patient portal, which gives you 20/04 access to your medical information ??? including these discharge instructions ??? using your computer, smartphone, or tablet. Just go to [email or web address] to get started. Questions? Call . You may also obtain a copy of your Emergency Department visit from Medical Records by calling the hospital phone number listed above and asking to be directed to the Medical Records Department. If you had special tests, such as EKG???s or X-rays, the interpretation of your tests given to you by the Emergency Department Physician is a preliminary report. Some fractures and illnesses fail to show up on preliminary tests. These will be reviewed again and we will call you if there are any new suggestions. If your symptoms continue notify your physician. After you leave, you should follow the instructions provided. What to do next Follow-Up Appointments Follow Up with Follow up with primary care provider When Within 2 to 3 days Comments Follow up with GI and consider colonscopy. Return to ER if symptoms worse or different. Follow up with Primary Care related to renal cyst and have CT for evaluation. Follow Up with LUANN MATSON When Within 5 to 7 days Where: [address] [facility] [id number] [facility] [place] (1) Follow Up with KETAN ESCOBAR When Within 2 to 3 days Allergies ciprofloxacin vancomycin Immunizations This Visit No Immunizations Found Medications What How Much When Instructions Next Dose ondansetron (Zofran ODT 4 mg oral tablet, disintegrating) 1 Tablet(s) Oral Three Times A Day Printed Prescription The home medications listed are only as accurate as the information you provided. Please continue taking all of your medications prescribed by your Primary Care Provider unless specifically told to change or discontinue the medication. Please direct any questions regarding your home medications to your Primary Care Provider. Take your medications faithfully. Do NOT skip medication. Do NOT stop taking medications without the direction of a physician. Carry a list of your medications with you at all times, and take this medication list with you to your first follow up visit. Report any side effects. Avoid herbal remedies unless discussed with your physician. As part of your treatment plan, your physician may have prescribed a limited course of a controlled substance. This medication may be given to help people with moderate or severe pain or for other medical conditions, but there are risks involved with treatment. Common side effects may include nausea, constipation, drowsiness, sweating, itching, dry mouth, and rash. More serious side effects may include cognitive and motor impairment, like problems with thinking, concentrating, alertness, and movement (e.g. slowed reflexes), and driving and operating heavy machinery can be dangerous. It is important for you to talk to your physician if you have these side effects or questions. These controlled substances can produce physical dependence and be habit-forming if taken for an extended period of time, which means that the body has gotten used to them and may experience withdrawal symptoms if they are abruptly stopped. Withdrawal symptoms can include runny nose, sweating, goose bumps, diarrhea, abdominal cramping, rapid heartbeat, difficulty sleeping, and nervousness. Please dispose of unused and medications per pharmacy guidance. Test Results Laboratory or Other Results This Visit (last charted value for your 03/01/2019 visit) Hematology 03/01/19 12:50:00 WBC: 6.7 K/uL -- Normal range between ( 4.5 and 10.5 ) RBC: 4.33 Million/uL -- Normal range between ( 3.93 and 5.22 ) Hct: 36.5 % -- Normal range between ( 34.1 and 44.9 ) Hgb: 12.5 g/dL -- Normal range between ( 11.2 and 15.7 ) Platelet Count: 223 K/uL -- Normal range between ( 163 and 369 ) MCH: 28.9 pg -- Normal range between ( 25.6 and 32.2 ) MCHC: 34.2 Gram/dL -- Normal range between ( 32.2 and 36.5 ) MCV: 84.3 fL -- Normal range between ( 79.0 and 94.8 ) Slide Review: No Eos %: 0.7 % -- Normal range between ( 0.0 and 7.0 ) Edgar #: 0.44 K/uL -- Normal range between ( 0.16 and 1.00 ) Eos #: 0.05 x10(3)/uL -- Normal range between ( 0.00 and 0.80 ) Edgar %: 6.6 % -- Normal range between ( 3.0 and 9.0 ) Baso %: 0.1 % -- Normal range between ( 0.0 and 1.5 ) Baso #: 0.01 x10(3)/uL -- Normal range between ( 0.00 and 0.20 ) RDW: 14.4 % -- Normal range between ( 11.7 and 14.9 ) Neut %: 62.8 % -- Normal range between ( 34.0 and 71.0 ) Neut #: 4.18 K/uL -- Normal range between ( 1.56 and 6.13 ) Lymph %: 29.4 % -- Normal range between ( 19.3 and 53.1 ) Lymph #: 1.96 x10(3)/uL -- Normal range between ( 1.00 and 3.90 ) MPV: 10.5 fL -- Normal range between ( 9.4 and 12.4 ) IG#: 0.03 x10(3)/uL -- Normal range between ( 0.00 and 0.05 ) IG%: 0.40 % -- Normal range between ( 0.00 and 0.60 ) Urinalysis 03/01/19 13:02:00 Specimen Type, Urine POC: Urine 03/01/19 12:50:00 Urine Nitrite: Negative Urine Leukocyte Esterase: Moderate Urine Appearance: Clear Urine Glucose Dipstick: Negative Urine Blood Dipstick: Negative Urine Type: U CleanCatch Urine Urobilinogen Dipstick: 1.0 EU/dL Urine Protein Dipstick: Negative Ur Bacteria: Trace Ur Squamous Epithelial Cells: 0-2 /HPF Urine Color: Yellow Ur WBC: 0-2 /HPF Urine Ketones Dipstick: Negative Urine pH Dipstick: 5.5 -- Normal range between ( 6.0 and 8.0 ) Urine Bilirubin Dipstick: Negative Urine Specific Murray: 1.011 -- Normal range between ( 1.005 and 1.030 ) General Chemistry 03/01/19 12:50:00 Creatinine Level: 1.20 mg/dL -- Normal range between ( 0.55 and 1.02 ) Sodium Level: 137 mmol/L -- Normal range between ( 136 and 146 ) Potassium Level: 3.5 mmol/L -- Normal range between ( 3.5 and 5.1 ) Chloride Level: 107 mmol/L -- Normal range between ( 102 and 112 ) Carbon Dioxide Level: 24 mmol/L -- Normal range between ( 21 and 32 ) Anion Gap: 10 -- Normal range between ( 9 and 20 ) Bilirubin Total: 1.0 mg/dL -- Normal range between ( 0.2 and 1.2 ) A/G Ratio: 1.1 -- Normal range between ( 1.1 and 2.5 ) ALT: 33 Units/Liter -- Normal range between ( 13 and 56 ) AST: 21 Units/Liter -- Normal range between ( 5 and 37 ) Globulin: 3.8 Gram/dL -- Normal range between ( 1.5 and 4.5 ) Alk Phos: 106 Units/Liter -- Normal range between ( 27 and 136 ) Bun/Creatinine: 26.7 -- Normal range between ( 8.0 and 20.0 ) Calcium Level: 9.1 mg/dL -- Normal range between ( 8.4 and 10.1 ) eGFR : 58 mL/min/1.73m2 eGFR NonAfrican: 48 mL/min/1.73m2 Glucose Level: 97 mg/dL -- Normal range between ( 74 and 106 ) Blood Urea Nitrogen: 32 mg/dL -- Normal range between ( 7 and 22 ) Lactic Acid Level: 0.7 mmol/L -- Normal range between ( 0.4 and 2.0 ) Protein Total: 7.8 Gram/dL -- Normal range between ( 6.4 and 8.2 ) Albumin Level: 4.0 Gram/dL -- Normal range between ( 3.4 and 5.0 ) Lipase Level: 119 Units/Liter -- Normal range between ( 73 and 393 ) Computed Tomography 03/01/19 13:56:25 CT Abdomen Pelvis W: CT Abdomen Pelvis W Education Materials Dehydration, Adult Dehydration is a condition in which there is not enough fluid or water in the body. This happens when you lose more fluids than you take in. Important organs, such as the kidneys, brain, and heart, cannot function without a proper amount of fluids. Any loss of fluids from the body can lead to dehydration. Dehydration can range from mild to severe. This condition should be treated right away to prevent it from becoming severe. What are the causes? This condition may be caused by: ??? Vomiting. ??? Diarrhea. ??? Excessive sweating, such as from heat exposure or exercise. ??? Not drinking enough fluid, especially: ? When ill. ? While doing activity that requires a lot of energy. ??? Excessive urination. ??? Fever. ??? Infection. ??? Certain medicines, such as medicines that cause the body to lose excess fluid (diuretics). ??? Inability to access safe drinking water. ??? Reduced physical ability to get adequate water and food. What increases the risk? This condition is more likely to develop in people: ??? Who have a poorly controlled long-term (chronic) illness, such as diabetes, heart disease, or kidney disease. ??? Who are age 65 or older. ??? Who are disabled. ??? Who live in a place with high altitude. ??? Who play endurance sports. What are the signs or symptoms? Symptoms of mild dehydration may include: ??? Thirst. ??? Dry lips. ??? Slightly dry mouth. ??? Dry, warm skin. ??? Dizziness. Symptoms of moderate dehydration may include: ??? Very dry mouth. ??? Muscle cramps. ??? Dark urine. Urine may be the color of tea. ??? Decreased urine production. ??? Decreased tear production. ??? Heartbeat that is irregular or faster than normal (palpitations). ??? Headache. ??? Light-headedness, especially when you stand up from a sitting position. ??? Fainting (syncope). Symptoms of severe dehydration may include: ??? Changes in skin, such as: ? Cold and clammy skin. ? Blotchy (mottled) or pale skin. ? Skin that does not quickly return to normal after being lightly pinched and released (poor skin turgor). ??? Changes in body fluids, such as: ? Extreme thirst. ? No tear production. ? Inability to sweat when body temperature is high, such as in hot weather. ? Very little urine production. ??? Changes in vital signs, such as: ? Weak pulse. ? Pulse that is more than 100 beats a minute when sitting still. ? Rapid breathing. ? Low blood pressure. ??? Other changes, such as: ? Sunken eyes. ? Cold hands and feet. ? Confusion. ? Lack of energy (lethargy). ? Difficulty waking up from sleep. ? Short-term weight loss. ? Unconsciousness. How is this diagnosed? This condition is diagnosed based on your symptoms and a physical exam. Blood and urine tests may be done to help confirm the diagnosis. How is this treated? Treatment for this condition depends on the severity. Mild or moderate dehydration can often be treated at home. Treatment should be started right away. Do not wait until dehydration becomes severe. Severe dehydration is an emergency and it needs to be treated in a hospital. Treatment for mild dehydration may include: ??? Drinking more fluids. ??? Replacing salts and minerals in your blood (electrolytes) that you may have lost. Treatment for moderate dehydration may include: ??? Drinking an oral rehydration solution (ORS). This is a drink that helps you replace fluids and electrolytes (rehydrate). It can be found at pharmacies and retail stores. Treatment for severe dehydration may include: ??? Receiving fluids through an IV tube. ??? Receiving an electrolyte solution through a feeding tube that is passed through your nose and into your stomach (nasogastric tube, or NG tube). ??? Correcting any abnormalities in electrolytes. ??? Treating the underlying cause of dehydration. Follow these instructions at home: ??? If directed by your health care provider, drink an ORS: ? Make an ORS by following instructions on the package. ? Start by drinking small amounts, about ?? cup (120 mL) every 5???10 minutes. ? Slowly increase how much you drink until you have taken the amount recommended by your health care provider. ??? Drink enough clear fluid to keep your urine clear or pale yellow. If you were told to drink an ORS, finish the ORS first, then start slowly drinking other clear fluids. Drink fluids such as: ? Water. Do not drink only water. Doing that can lead to having too little salt (sodium) in the body (hyponatremia). ? Ice chips. ? Fruit juice that you have added water to (diluted fruit juice). ? Low-calorie sports drinks. ??? Avoid: ? Alcohol. ? Drinks that contain a lot of sugar. These include high-calorie sports drinks, fruit juice that is not diluted, and soda. ? Caffeine. ? Foods that are greasy or contain a lot of fat or sugar. ??? Take vhtx-niz-zapazeh and prescription medicines only as told by your health care provider. ??? Do not take sodium tablets. This can lead to having too much sodium in the body (hypernatremia). ??? Eat foods that contain a healthy balance of electrolytes, such as bananas, oranges, potatoes, tomatoes, and spinach. ??? Keep all follow-up visits as told by your health care provider. This is important. Contact a health care provider if: ??? You have abdominal pain that: ? Gets worse. ? Stays in one area (localizes). ??? You have a rash. ??? You have a stiff neck. ??? You are more irritable than usual. ??? You are sleepier or more difficult to wake up than usual. ??? You feel weak or dizzy. ??? You feel very thirsty. ??? You have urinated only a small amount of very dark urine over 6???8 hours. Get help right away if: ??? You have symptoms of severe dehydration. ??? You cannot drink fluids without vomiting. ??? Your symptoms get worse with treatment. ??? You have a fever. ??? You have a severe headache. ??? You have vomiting or diarrhea that: ? Gets worse. ? Does not go away. ??? You have blood or green matter (bile) in your vomit. ??? You have blood in your stool. This may cause stool to look black and tarry. ??? You have not urinated in 6???8 hours. ??? You faint. ??? Your heart rate while sitting still is over 100 beats a minute. ??? You have trouble breathing. This information is not intended to replace advice given to you by your health care provider. Make sure you discuss any questions you have with your health care provider. Document Released: 09/14/2006 Document Revised: 04/10/2017 Document Reviewed: 11/07/2016 [employer] Patient Education ?? 2019 [employer] Abdominal Pain, Adult Abdominal pain can be caused by many things. Often, abdominal pain is not serious and it gets better with no treatment or by being treated at home. However, sometimes abdominal pain is serious. Your health care provider will do a medical history and a physical exam to try to determine the cause of your abdominal pain. Follow these instructions at home: ??? Take rccr-eht-vdyllzv and prescription medicines only as told by your health care provider. Do not take a laxative unless told by your health care provider. ??? Drink enough fluid to keep your urine clear or pale yellow. ??? Watch your condition for any changes. ??? Keep all follow-up visits as told by your health care provider. This is important. Contact a health care provider if: ??? Your abdominal pain changes or gets worse. ??? You are not hungry or you lose weight without trying. ??? You are constipated or have diarrhea for more than 2???3 days. ??? You have pain when you urinate or have a bowel movement. ??? Your abdominal pain wakes you up at night. ??? Your pain gets worse with meals, after eating, or with certain foods. ??? You are throwing up and cannot keep anything down. ??? You have a fever. Get help right away if: ??? Your pain does not go away as soon as your health care provider told you to expect. ??? You cannot stop throwing up. ??? Your pain is only in areas of the abdomen, such as the right side or the left lower portion of the abdomen. ??? You have bloody or black stools, or stools that look like tar. ??? You have severe pain, cramping, or bloating in your abdomen. ??? You have signs of dehydration, such as: ? Dark urine, very little urine, or no urine. ? Cracked lips. ? Dry mouth. ? Sunken eyes. ? Sleepiness. ? Weakness. This information is not intended to replace advice given to you by your health care provider. Make sure you discuss any questions you have with your health care provider. Document Released: 06/24/2006 Document Revised: 04/03/2017 Document Reviewed: 02/25/2017 [employer] Interactive Patient Education ?? 2019 [employer] Emergency Awareness and Preventative Care STROKE is an EMERGENCY Every Minute Counts Act FAST and Check for these signs: FACE Does the face look uneven? ARM Does one arm drift down? SPEECH Does their speech sound strange? TIME Call at any sign of stroke Stroke Risk Factors Atrial Fibrillation (irregular heartbeat) Diabetes Family history of stroke Heart Disease Heavy alcohol use High Blood Pressure High Cholesterol Physical inactivity and obesity Smoking Cigarette Smoking The facts are clear, cigarette smoking will shorten your life. Smoking can cause many illnesses along the way. As a healthcare provider, we recommend that you stop smoking. Assistance with quitting is available by contacting 7-845-UMDCNOW. This is a free resource providing counseling, support, and referral. Or you may contact your personal physician. [place] Suicide Prevention Lifeline: The National Suicide Prevention Lifeline is a national network of local crisis centers that provides free and confidential emotional support to people in suicidal crisis or emotional distress 24 hours a day, 7 days a week. Don't Wait! Stop a Heart Attack Before it Starts What is a heart attack? A heart attack is damage or to a part of the heart from severely decreased or lack of blood flow to the heart. Over time, arteries can become narrow from the buildup of fat and cholesterol, which is called plaque. The plaque can rupture causing a blood clot to form. When the blood clot forms, the artery can become severely narrowed or completely blocked, causing a heart attack. Heart attack is the leading cause of in the [place]. 85% of muscle damage occurs within the first 2 hours. Delay in the recognition of heart attack symptoms increases the chances of . Know the early symptoms of a heart attack: Nausea Feeling of fullness in chest Jaw Pain Pain that travels down one or both arms Fatigue/being tired Anxiety Back Pain Chest pressure, squeezing, or discomfort Shortness of breath Sweating, or a cold sweat Feeling of impending doom There are unusual signs of a heart attack, too! Women, the elderly, and diabetics may present with atypical symptoms: Fainting/dizziness Weakness Confusion Risk Factors for a Heart Attack Some heart disease risk factors, such as age and family history, cannot be changed. Others, like smoking and lack of exercise, can be changed. Smoking High Cholesterol High Blood Pressure Family History Obesity Age Gender (Males are at higher risk) Lack of Exercise Diabetes Diet Stress Excessive Alcohol Intake If you or someone you know is experiencing the signs and symptoms of a heart attack, DON???T DELAY. Call immediately and seek help. If someone collapses, perform CPR! Do not attempt to drive if you are having symptoms of heart attack. Hands-Only CPR Why Hands-Only CPR? Hands-Only CPR has been shown to be as effective as conventional CPR for cardiac arrests that occur outside of a hospital. Survival depends on immediately receiving CPR from someone nearby. How do you perform Hands-Only CPR? There are two easy steps: Call 9-1-1 if you see a teen or adult collapse Push hard and fast in the center of the chest at a beat of 100 beats per minute. Save a life! 4 WAYS TO GET AHEAD OF SEPSIS SEPSIS is a MEDICAL EMERGENCY. Time matters! Infections put you and your family at risk for a life-threatening condition called sepsis. Sepsis is the body's extreme response to an infection. It is life-threatening, and without timely treatment, sepsis can rapidly lead to tissue damage, organ failure, and . Sepsis happens when an infection you already have-in your skin, lungs, urinary tract or somewhere else-triggers a chain reaction throughout your body. 1 PREVENT INFECTIONS Take good care of chronic conditions. Talk to your doctor about getting the recommended vaccines. 2 PRACTICE GOOD HYGIENE Wash your hands frequently. Keep cuts or open sores clean and covered until they are healed. 3 KNOW THE SYMPTOMS Confusion or disorientation Shortness of breath High heart rate Fever, shivering, or feeling very cold Extreme pain or discomfort Clammy or sweaty skin 4 ACT FAST Get medical care IMMEDIATELY if you suspect sepsis or if you have an infection that is not getting better or is getting worse. To learn more about sepsis and how to prevent infections, visit www.cdc.gov/sepsis. The examination and treatment you have received in the Emergency Department has been done to provide an appropriate evaluation and stabilizing treatment on an emergency basis only. Given the limited resources, it is not meant to be a substitute for complete medical care. The follow-up doctor you named will receive a copy of your records and all test reports. IT IS IMPORTANT THAT YOU SCHEDULE A FOLLOW-UP APPOINTMENT AND ARE RE-EVALUATED. You should report any new complaints, symptoms, or remaining problems at that time. IT IS IMPOSSIBLE FOR THE EMERGENCY DEPARTMENT TO RECOGNIZE AND TREAT ALL ELEMENTS OF INJURY OR ILLNESS IN A SINGLE VISIT. If you have been referred to a specialist physician, it means that we believe you may have a condition that requires the expertise of a specialist. These physicians work in partnership with the hospital and have agreed to see referred patients in their office for further evaluation. KEEP IN MIND THAT THE SPECIALIST HAS HIS/HER OWN OFFICE POLICIES WHICH MAY REQUIRE PROPER INSURANCE OR PAYMENT UP FRONT BEFORE THE SPECIALIST WILL SEE YOU. It is your responsibility to call the specialist physician to make an appointment. We do not have the ability to refer patients to specialists/physicians that work with specific insurance companies. Please be advised that all financial charges or billing practices are determined by that practice, not the hospital. If your insurance company requires that you see a specialist from their approved list, it is your responsibility to contact your insurance company to make those arrangements. It is also your responsibility to follow any other requirements of your insurance company necessary to obtain coverage for claims submitted. We will bill your insurance; however, you are responsible today for any co-pay amounts. You will receive a separate bill for any services you may have received including: emergency, radiology, or pathology physicians. Patient Name:SAMARA LEAL I have received this information and was given the opportunity to ask questions. Patient/Open Hearth Melter Name: Patient/Open Hearth Melter Signature: Relationship to Patient: Clinician/Hospital Open Hearth Melter Signature: Please Provide a Telephone Number Where You Can Be Reached: Is it Permissible To Leave a Message? 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
--- OUTSIDE RECORDS SUMMARY | 2025-04-19 20:59 | XMS_ITS | Encounter Summary ---
Author Organization [facility] Address [address] [place] [address] Care Team Providers Care Automotive Maintenance Technician Name Role Phone Mindy Brandon Primary Care Provider [phone] Encounter Details Date Type Department Care Team (Late st Contact Info) Description 03/23/2025 Telephone [facility] C[facility] [address] [place] [address] Mima Calderon MD [address] [place], [place] [id number] Social History Tobacco Use Types Packs/Day Years [...] encounter Miscellaneous Notes * Telephone Encounter - Jeanne Matthew RegSched Rep - 03/23/2025 11:30 AM EDT COMPLETED CARDIAC CLEARANCE REQUEST HAS BEEN SCANNED INTO PT'S CHART AND FAXED TO [facility]. THANK YOU. * Telephone Encounter - Kayla Ha MA - 03/23/2025 10:35 AM EDT Any new symptoms since last OV such as chest pain SOA? NO Any worsening of edema or worsening palpitations? NO Any major medical issues since last OV we need to know? NO Is the patient on Eliquis, xarelto, pradaxa? NO Is the patient on aspirin? YES Is the patient on brilinta (ticagrelor), plavix (clopidogrel), prasugrel (effient)? NO Is the patient on medications like mounjaro or ozempic? NO Last EKG? 12/13/2024 Last stress test? 01/09/2025 Last echo? 12/27/2024 Last heart cath or CCTA? 02/23/2025-CTA Last OV? 02/27/2025 * Telephone Encounter - Jeanne Matthew RegSched Rep - 03/23/2025 10:[address] EDITH DAVIDSON OF [facility] IS REQUESTING CARDIAC CLEARANCE FOR A LEFT KNEE SCOPE SCHEDULED ON 04/05/2025. CARDIAC CLEARANCE REQUEST FORM HAS BEEN SCANNED INTO PT'S CHART. THANK YOU. documented in this encounter Plan of Treatment Upcoming Encounters Date Type Department Care Team (Late st Contact Info) Description 05/31/2025 3:00 PM EDT Office Visit [facility] [address] [place] [phone] Mima Calderon MD [address] [place] [address] documented as of this encounter Visit Diagnoses Not on filedocumented in this encounter Care Teams Automotive Maintenance Technician Relationship Specialty Start Date End Date Mindy Brandon PA [address] [place] [address] PCP - General Physician Carpentry Foreman 12/02/24 documented as of this encounter
--- OUTSIDE RECORDS SUMMARY | 2025-04-19 20:59 | XMS_ITS | Encounter Summary ---
Author Organization [facility] ([place], [place], [place], [place]) Address [address] [place] [address] Care Team Providers Care Auto Winder Name Role Phone Lloyd Roberts MD Primary Care Provider [phone] Mindy Brandon Primary Care Provider Encounter Details Date Type Department Care Team (Late st Contact Info) Description 03/01/2019 Transcribed Document [facility] [place] [address] ProviderAlexander MD [address] [place] [id number] Social History Tobacco Use Types Packs/Day Years Used Date Smoking Tobacco: Never Assessed Comments Unknown Sex and Gender Information Value Date Recorded Sex Assigned at Female 03/25/2022 6:18 PM CDT Legal Sex Female 6:18 PM CDT Gender Identity Female 03/25/2022 6:18 PM CDT Sexual Orientation Not on file documented as of this encounter Miscellaneous Notes * Argelia Conversion Note - Alexander ProviderMD - 03/01/2019 2:32 PM CDT documented in this encounter Plan of Treatment Not on file documented as of this encounter Visit Diagnoses Not on filedocumented in this encounter Care Teams Auto Winder Relationship Specialty Start Date End Date Lloyd Roberts MD [address] [place] [address] PCP - General Family Medicine 09/26/22 03/28/25 Mindy Brandon PA [address] [place] [phone] PCP - General Physician Air Conditioning Specialist 03/29/25 documented as of this encounter
--- OUTSIDE RECORDS SUMMARY | 2025-04-19 20:59 | XMS_ITS | Encounter Summary ---
Author Organization [facility] Address [address] [place] [address] Care Team Providers Care Patient Admitting Representative Name Role Phone Mindy Brandon Primary Care Provider [phone] Reason for Referral * Consultation (Routine) - Authorized Specialty Diagnoses / Procedures Referred By Contac t Referred To Contact Diagnoses Abnormal finding on imaging Procedures [facility] OFFICE/OUTPATIENT NEW MODERATE MDM 45 MINUTES Arabella Davey APRN [address] [place] [address] Phone: tel: fax: Rodrick Gu MD [address] [address] Phone: tel: fax: Referral ID Status Reason Start Date Expiration Date Visits Requested Visits Authorized [id number] Authorized Specialty Services Required 02/28/2025 05/30/2026 1 1 Encounter Details Date Type Department Care Team (Late st Contact Info) Description 02/28/2025 Telephone [facility] [address] [place] [phone] Arabella Davey APRN [address] [place] [address] Social History Tobacco Use Types Packs/Day Years [...] encounter Miscellaneous Notes * Telephone Encounter - Kayla Ha MA - 02/28/2025 2:08 PM EDT SPOKE TO PATIENT, PATIENT UNDERSTOOD. * Telephone Encounter - Kayla Ha MA - 02/28/2025 9:01 AM EDT LVM FOR PATIENT TO CALL BACK FOR MESSAGE. * Telephone Encounter - Arabella Davey APRN - 02/28/2025 8:16 AM EDT Please call patient and let her know that I had discussed her coronary CTA findings with Dr. Calderon. 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 documented in this encounter Plan of Treatment Upcoming Encounters Date Type Department Care Team (Late st Contact Info) Description 05/31/2025 3:00 PM EDT Office Visit [facility] [address] [place] [phone] Mima Calderon MD [address] [place] [address] Scheduled Referrals Name Type Priority Associated Diagnoses Order Schedule Ambulatory Referral to Cardiothoracic Surgery Outpatient Referral Routine Abnormal finding on imaging Ordered: 02/28/2025 documented as of this encounter Visit Diagnoses Diagnosis Abnormal finding on imaging- Primary Other nonspecific (abnormal) findings on radiological and other examinations of body structure documented in this encounter Care Teams Patient Admitting Representative Relationship Specialty Start Date End Date Mindy Brandon PA [address] [facility] [address] [place], [place] [id number] PCP - General Physician Senior Operations Analyst 12/02/24 documented as of this encounter
--- OUTSIDE RECORDS SUMMARY | 2025-04-19 21:00 | XMS_ITS | Clinical Summary ---
Author Organization [facility] Address [address] [place] [address] Care Team Providers Care Back Hoe Operator Name Role Phone Mindy Brandon Primary Care Provider [phone] Allergies Active Allergy Reactions Criticality Noted Date Comments Adhesive Tape Rash Low 01/16/2025 Ciprofloxacin Hives,Rash Low 04/09/2017 Vancomycin Rash,Swelling Low 12/09/2013 Medications Ventolin HFA 108 (90 Base) MCG/ACT inhaler Inhale 2 puffs Every 4 (Four) Hours As Needed for Shortness of Air or Wheezing. Active amLODIPine (NORVASC) 5 MG tablet Take 1 tablet by mouth Daily. Active aspirin 81 MG EC tablet Take 1 tablet by mouth Daily. Active hydrOXYzine (ATARAX) 25 MG tablet Take 1 tablet by mouth Every 4 (Four) Hours As Needed. Active lisinopril-hydroch lorothiazide (PRINZIDE,ZESTORET IC) 20-25 MG per tablet Take 1 tablet by mouth Daily. Active metoprolol succinate XL (TOPROL-XL) 50 MG 24 hr tablet Take 1 tablet by mouth Daily. Active tiZANidine (ZANAFLEX) 4 MG tablet Take 1 tablet by mouth Every 6 (Six) Hours As Needed. Active rOPINIRole (REQUIP) 0.5 MG tablet Take 1 tablet by mouth 3 (Three) Times a Day. Active Ubrelvy 50 MG tablet Take 1 tablet by mouth As Needed. Active busPIRone (BUSPAR) 10 MG tablet Take 1 tablet by mouth 2 (Two) Times a Day. 12/28/19 25 Active methocarbamol (ROBAXIN) 750 MG tablet Take 1 tablet by mouth As Needed. 01/06/20 25 Active venlafaxine XR (EFFEXOR-XR) 37.5 MG 24 hr capsule Take 1 capsule by mouth Daily. 12/28/19 25 Active metoprolol tartrate (LOPRESSOR) 100 MG tabletIndications: Precordial chest pain,Shortness of breath Take 100 mg at Bedtime the Night Before Coronary CTA Appointment and In the Morning 1 Hour Prior to Coronary CTA Appointment. Do not take if heart rate less than 60. 2 tablet 01/17/20 25 Active rimegepant sulfate ODT (Nurtec) [address] 1 tablet under the tongue 1 (One) Time. Active Active Problems Problem Noted Date Diagnosed Date Mild CAD 02/27/2025 Assessment & Plan (02/27/2025 4:02 PM EDT): She completed a coronary CTA on 02/24/2025 [...] her PCP. - Check fasting lipid panel Precordial chest pain 12/13/2024 Assessment & Plan (02/27/2025 4:03 PM EDT): She continues to experience intermittent episodes of chest pain but was recently put on Prilosec for heartburn. I suspect that chest pain is GI related. A small hiatal hernia was also noted on recent CT. Assessment & Plan (01/16/2025 9:29 PM EDT): She completed an echocardiogram on 12/27/2024 that revealed an LVEF of 66 to 70% and no significant valvular abnormalities. Nuclear stress test from 01/09/2025 revealed no evidence of ischemia. Since her last office visit, she has had several additional episodes of chest pain with associated diaphoresis, nausea and shortness of breath that is relieved with nitro. Discussed further cardiac testing including coronary CTA and patient is agreeable. - Proceed with coronary CTA - Referral to GI if coronary CTA is normal Assessment & Plan (12/13/2024 3:49 PM EDT): Patient reports intermittent episodes of significant chest pain, diaphoresis and vomiting. She has a family history of premature CAD. - Nuclear stress test for further evaluation. Patient unable to walk on treadmill due to worsening shortness of breath Shortness of breath 12/13/2024 Assessment & Plan (02/27/2025 4:03 PM EDT): She completed an echocardiogram on 12/27/2024 that revealed an LVEF of 66 to 70% and no significant valvular abnormalities. Assessment & Plan (12/13/2024 3:50 PM EDT): Patient reports worsening shortness of breath that is limiting her ability to perform daily activities. She has to stop frequently to catch her breath. - We will proceed with a cardiac workup, including stress test and echocardiogram Syncope 12/13/2024 Assessment & Plan (12/13/2024 3:50 PM EDT): She reports a syncopal episode that occurred on 11/19/2024. She did not seek further evaluation at that time. - 5-day Holter monitor, stress test and echocardiogram Encounters Date Type Department Care Team Description 03/23/2025 Telephone [facility] [address] [place] [phone] Mima Calderon MD 03/08/2025 Telephone [facility] [address] [place] [phone] Mmia Calderon MD [place]-PLEASE CALL 02/28/2025 Telephone [facility] [address] [place] [phone] Arabella Davey APRN 02/27/2025 3:15 PM EDT Office Visit [facility] [address] [place] [phone] Arabella Davey APRN Mild CAD (Primary Dx); Precordial chest pain; Shortness of breath 02/27/2025 Travel 02/23/2025 11:29 AM EDT - 02/23/2025 11:59 PM EDT Hospital Encounter [address] [place] [address] Precordial chest pain; Shortness of breath Discharge Disposition: Home or Self Care 02/23/2025 9:36 AM EDT - 02/23/2025 11:59 PM EDT Hospital Encounter [facility] [address] [facility] [address] [place] [address] Precordial chest pain; Shortness of breath Discharge Disposition: Home or Self Care 02/23/2025 Travel 02/22/2025 Telephone [facility] [address] [place] [address] [place]andr [place] 02/21/2025 Telephone [facility] CARDIOLOG[facility] [address] [place] [address] Arabella Davey APRN from Last 3 Months Family History Medical History Relation Name Comments No Known Problems Brother Breast cancer Mother Relation Name Status Comments Brother Alive Father Unknown Mother Alive Social History Tobacco Use Types Packs/Day Years Used Date Smoking Tobacco: Every Day Cigarettes Passive Smoke Exposure: Current Smokeless Tobacco: Never Tobacco Cessation:Ready to Q uit: Not Asked; Counseling Given: Not Answered Alcohol Use Standard Drinks/Week Comments Never 0 (1 standard drink = 0.6 oz pur e alcohol) Comments No Sex and Gender Information Value Date Recorded Sex Assigned at Not on file Legal Sex Female 6:13 PM EST Gender Identity Not on file Sexual Orientation Not on file Last Filed Vital Signs Vital Sign Reading Time Taken Comments Blood Pressure 130/82 02/27/2025 2:57 PM EDT Pulse 98 02/27/2025 2:57 PM EDT Temperature 36.7 C (98 F) 02/23/2025 10:24 AM EDT Respiratory Rate 21 02/23/2025 10:24 AM EDT Oxygen Saturation 96% 02/27/2025 2:57 PM EDT Inhaled Oxygen Concentration - - Weight 93.4 kg (206 lb) 02/27/2025 2:57 PM EDT Height 152.4 cm (5') 02/27/2025 2:57 PM EDT Body Mass Index 40.23 02/27/2025 2:57 PM EDT Plan of Treatment Upcoming Encounters Date Type Department Care Team (Late st Contact Info) Description 05/31/2025 3:00 PM EDT Office Visit [facility] [address] [place] [phone] Mima Calderon MD [address] [place] [address] Health Maintenance Due Date Last Done Comments Annual Gynecologic Pelvic an d Breast Exam 1969 Pneumococcal Vaccine 50+ (1 of 2 - PCV) 1988 MAMMOGRAM 2009 COLOGUARD 2014 COLON CANCER SCREENING 5 YEA R SIGMOIDOSCOPY [address] COLONOGRAPHY 2014 FECAL OCCULT BLOOD TEST 2014 FIT Testing (1 year) 2014 ZOSTER VACCINE (1 of 2) 2019 COVID-19 Vaccine ( - season) 2024 ANNUAL PHYSICAL 12/08/2024 HEPATITIS C SCREENING 12/08/2024 INFLUENZA VACCINE 06/28/2025 COLONOSCOPY 09/28/2027 09/28/2017 COLORECTAL CANCER SCREENING 09/28/2027 TDAP/TD VACCINES (4 - Td or Tdap) 10/25/2033 10/25/2023, 09/30/2012, 12/25/1997 Procedures Procedure Name Priority Date/Time Associated Diagnosis Comments CTA CARDIOLOGY READ CAR Routine 02/23/2025 11:29 AM EDT Precordial chest pain Shortness of breath CT ANGIOGRAM CORONARY Routine 02/23/2025 11:20 AM EDT Precordial chest pain Shortness of breath from Last 3 Months Results * CT Angiogram Coronary-Cardiology Interpretation (02/23/2025 [...] cannot be excluded Grading Scale for Plaque Ericson: P1 (CAC 1-100) Mild amount of plaque [...] Using a Siemens Force scanner, a preliminary hotel breakfast attendant study was obtained, followed by coronary artery calcium protocol. 0.5 mm collimated images were obtained through the coronary arteries. Data were transferred offline for 3D reconstructions using [employer]. CONTRAST: 65 mL iopamidol ([id number]) ACQUISITION: Retrospective [...] size and caliber. Images: Arabella Davey APRN [facility] [place] ORDERABLES Final Result * CT Angiogram Coronary (02/23/2025 11:20 AM EDT) Anatomical Region Laterality Modality Vascular, Chest N/A Computed Tomogra phy 02/24/2025 11:1 7 AM EDT Impressions 02/24/2025 11:18 AM EDT Impression: Small hiatal hernia. Please refer to CT Angiogram Coronary Cardiology Interp report for information on cardiac structures. Electronically Signed: Deo Rivera MD 02/24/2025 11:18 AM EDT Workstation ID: [id number] Narrative 02/24/2025 11:[address] ANGIOGRAM [...] report forinformation on cardiac structures. Electronically Signed: eDo Rivera MD 02/24/2025 11:18 AM EDT Workstation ID: [id number] Arabella Davey MAGAZINE WORKER IMG CT ORDERABLES Final Result from Last 3 Months Insurance [facility] Care Teams Back Hoe Operator Relationship Specialty Start Date End Date Mindy Brandon PA [address] [facility] [address] [facility] [address] [place] [address] PCP - General Physician Fountain Pen Turner 12/02/24
--- OUTSIDE RECORDS SUMMARY | 2025-04-19 21:00 | XMS_ITS | Data Portability ---
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 [place] 02/08/2025 13:55:41 02/21/2025 text/html Jeannie is a 54 yo female who presents to clinic today for evaluation. Patient has a history of multiple complaints she is here for evaluation of. For she complains of right great toe pain. It has been now for about 2 weeks she can not really say anything to touch it. Patient was found to have elevated uric acid level previously but was never diagnosed with gout due to never having symptoms until now. Patient has not really tried much medication for symptoms. Patient also has history of restless leg syndrome. She is currently on ropinirole 0.5 mg twice daily. That originally was working for her but now over the last month or so she is noticed that it is not helping as much she is having more symptoms of the restless legs throughout the day and at night and is interested to see if the medication can be increased. Patient has a history of migraine headaches. She recently had went to see Neurology and they had started her on multiple medications but due to cost it is become an issue with her being able to get these. They are not sure if it is something that we can help with. Patient does feel like the medications have really helped with her symptoms and headaches. Patient has been on hydroxyzine to take as needed for anxiety. She does feel like it is really helped with symptoms intermittently and would like to have a new prescription of that but would like to have more of the medication due to her having to take it more often at times. Patient declines any other issues or new complaints. Mindy Tarango PA-C [address] [facility],[address], [place], [address], [facility] - [facility] & [place] 02/22/2025 13:57:17 03/08/2025 text/html Jeannie is a 54y o female here for [...] blood in her stool. Mindy Tarango PA-C [address] [place] [address],[address], [place], [address], [place] [facility] [place] & [place] 03/08/2025 15:53:59 03/30/2025 text/html 54-year-old kwadwo ent presents today for preop clearance for left knee surgery with Dr. Sandoval on April 05. Patient has a meniscal tear and she is having surgery for repair. She needs lab work, chest x-ray, and EKG. She offers no complaints today. Ketan Roberts NP [address] [facility],[address], [place], [address], [place] [facility] & [place] 04/04/2025 10:30:28 OBGyn Episode No OBEpisode recorded.
--- OUTSIDE RECORDS SUMMARY | 2025-04-19 21:00 | XMS_ITS | Patient Health Record ---
Author Organization [facility] Address [address] [facility] [place] [address] Care Team Providers Care Molding Associate Name Role Phone Genia Lynn Primary Care Provider Allergies Allergen (clinical drug ingredient) Drug/Non Drug Allergy documented on EMR Reaction Allergy Type Onset Date Status ciprofloxacin Ciprofloxacin shortness of breath Drug Allergy Active vancomycin Vancomycin Unknown Drug Allergy Activ e Reason For Referral No Information Medications Medication SIG (Take, Route, Frequency, Duration) Notes Start Date End Date Status Effexor Unknown hydrALAZINE HCl Unkn own Epclusa 400-100 MG 1 tablet Orally Once a day; Duration: 84 days 11/21/2022 Unknown Lisinopril-hydroCHLOROthi azide Unknown Lisinopril 20 MG 1 tablet Orally Once a day Unknown traZODone HCl 50 MG 1 tablet at bedtime as needed Orally Once a day Unknown Lexapro Unknown Vivitrol 380 MG 4 ml Intramuscular e very 4 weeks; Duration: 28 days 12/03/2022 Active BuSpar Unknown Metoprolol Succinate Unknown cloNIDine HCl Unknow n Social History Tobacco Use: Social History Observation Description Date Details (start date - stop date) Current Smoker NA - NA Tobacco Use/Smoking Question Answer Notes Are you a current smoker How often do you smoke cigarettes? every day Alcohol Screen (Audit-C) Question Answer Notes Did you have a drink containing alcohol in the p ast year? No Points 0 Interpretation Negative Section Notes: Hx of nonprofessional tattoo s Hx of nonprofessional tattoo s Hx of nonprofessional tattoo s Hx of nonprofessional tattoo s Hx of nonprofessional tattoo s Hx of nonprofessional tattoo s Hx of nonprofessional tattoo s Hx of nonprofessional tattoo s Hx of nonprofessional tattoo s Hx of nonprofessional tattoo s Hx of nonprofessional tattoo s Hx of nonprofessional tattoo s Hx of nonprofessional tattoo s Hx of nonprofessional tattoo s Hx of nonprofessional tattoo s Problems Problem Type SNOMED Code ICD Code Onset Dates Problem Status W/U Status Risk Notes Problem Chronic hepatitis C (691201598) Chronic viral hepatitis C (B18.2) Active confirmed Problem Alcohol dependence (56492923) Uncomplicated alcohol dependence (F10.20) Active confirmed Problem Uncomplicated opioid dependence (F11.20) Active confirmed Problem Substance use disorder (6916242094) Substance use disorder (F19.90) Active confirmed Plan Of Treatment No Information Insurance Providers Payer Name Payer Address Payer Phone Subscriber Number Group Number Insured Name Patient Relationship to Insured Coverage Start Date Coverage End Date [employer] [facility] [address] [place], [place] [id number] Samara Richardson Self - patient is the insured 3 Medical (General) History Medical History History ICD Code Heart Disease hypertension migraine headaches depression anxiety bipolar disorder PTSD anemia Arthritis M19.90 History of stroke Z86.73 Mood disorder F39 Substance use disorder F19.90 Chronic viral hepatitis C B18.2 Surgical History Surgery Date(Month/Year) section Gallbladder Removed lumpectomy Hernia Repair lt knee with pins lt wrist with metal plate Hospitalization History Reason Date(Month/Year) blood transfusion childbirth
--- OUTSIDE RECORDS SUMMARY | 2025-04-19 21:00 | XMS_ITS | Encounter Summary ---
Author Organization [facility] Address [address] [place] [address] Care Team Providers Care Field Marketing Team Leader Name Role Phone Mindy Brandon Primary Care Provider [phone] Encounter Details Date Type Department Care Team (Latest Contact Info) Description 02/27/2025 Travel Social History Tobacco Use Types Packs/Day [...] Description 05/31/2025 3:00 PM EDT Office Visit [facility] [address] [place] [address] Mima Calderon MD [address] [place] [address] documented as of this encounter Visit Diagnoses Not on filedocumented in this encounter Care Teams Field Marketing Team Leader Relationship Specialty Start Date End Date Mindy Brandon PA [address] [facility] [address] [place] [address] PCP - General Physician Board Lining Machine Operator 12/02/24 documented as of this encounter
--- OUTSIDE RECORDS SUMMARY | 2025-04-19 21:01 | XMS_ITS | Continuity of Care Document ---
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 tobacco? Never used smokeless tobacco Information not available 01/05/2025 What is your exercise level? Occasional [email or web address] Information not available 01/05/2025 Mental Status Question Answer Note LastModified by Organization D etails LastModified Time Do you feel stressed (tense, restless, nervous, or anxious, or unable to sleep at night)? [id number] Information not available 01/05/2025 Family History Relationship [...] Y Stroke Y Headaches Y Heart Attack (UT) Y Congestive Heart Failure (CHF) Y Back Problems Y Hepatitis Y Hypertension Y Osteoporosis Y Gynecological History Statement/Question Response Menses Monthly N Current Control Method None Sexually Active? N Obstetrics History GPAL:G 0 P 0 0 0 0 Immunizations Vaccine Type Date Status Note Provider Nam e and Address Organization Details Recorded Time Tdap 3 completed SAHNTHI Carlton [facility] 10/01/2022 08:51:41 Td (adult), 2 Lf tetanus toxoid, preservative free, adsorbed 8 completed SHANTHI Carlton [facility] - [place] & [place] 10/01/2022 08:51:41 Hep A, adult 9 completed Jeannie mccauley, SHANTHI SANTIAGO - [place] & [place] 10/01/2022 08:51:41 Tdap 4 completed Amanda mccauley, SHANTIH Espino [facility] - [place] & [place] 03/30/2025 09:28:06 Past Encounters Encounter ID Performer Location Encounter Start Date Encounter Closed Date Diagnosis/Indication Diagnosis SNOMED-CT Code Diagnosis ICD10 Code Diagnosis Note [id number] Sahil Avalos MD [facility] [address] [facility] [place]TH[place] [address] 03/08/2025 12:59:37 03/08/2025 13:51:46 Gouty arthritis of right great toe 2821583120 476592 M10.9 Hematochezia 217225529 K 92.1 Pain in right foot 13566 07555 82244 M79.671 Acute cellulitis 5355755 009 L03.90 [id number] Ketan Roberts NP [facility] [address] [place] [address] 03/30/2025 09:14:43 03/30/2025 10:03:50 Preoperative state 64139462 Z01.818 Essential hypertension 34289215 I10 Mixed hyperlipidemia 267 940549 E78.2 Pain of le ft knee joint 7283511664 44194 M25.562 Blood gluc ose outside reference range 388749787 R73.09 Health Concerns Section Related Observation LastModified by Organization Detai ls LastModified Time None Recorded Concern Status LastModified by Organization Details LastModified Time None Recorded Payers Encounter Date Sequence Insurance Name Policy Number Policy Bui Covered Member ID Bui Member ID Guarantor Name 03/30/2025 1 [employer] [facility] (MEDICAID HMO) Jeannie Richardson [id number] Jeannie Richardson Notes Date Note Type Note Provider Name and Address Organization Details Recorded Time 03/30/2025 text/html 54-year-old patient presents today for preop clearance for left knee surgery with Dr. Sandoval on April 05. Patient has a meniscal tear and she is having surgery for repair. She needs lab work, chest x-ray, and EKG. She offers no complaints today. Ketan Roberts, LUBA [address] [facility],[address], [place], [address], [facility] - [facility] - [place] & [place] 04/04/2025 10:30:28 OBGyn Episode No OBEpisode recorded.
--- OUTSIDE RECORDS SUMMARY | 2025-04-19 21:01 | XMS_ITS | Encounter Summary ---
[facility] Address [address] [place] [address] Care Team Providers Care Slip Sheeter Name Role Phone Mindy Brandon Primary Care Provider [phone] Encounter Details Date Type Department Care Team (Late st Contact Info) Description 02/22/2025 Telephone [facility] [address] [place] [address] Mindy Brandon PA [facility] [address] [place] [address] Social History Tobacco Use Types Packs/Day Years [...] encounter Miscellaneous Notes * Telephone Encounter - Nicole Levine RN - 02/22/2025 3:04 PM EDT Pt contacted as pre-procedure phone call prior to planned CTA coronary for 02/23/25. 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 VML. documented in this encounter Plan of Treatment Upcoming Encounters Date Type Department Care Team (Late st Contact Info) Description 05/31/2025 3:00 PM EDT Office Visit [facility] [address] [place] [id number] Mima Calderon MD [address] [place] [address] documented as of this encounter Visit Diagnoses Not on filedocumented in this encounter Care Teams Slip Sheeter Relationship Specialty Start Date End Date Mindy Brandon PA [address] [facility] [address] [place] [address] PCP - General Physician Base Engineer 12/02/24 documented as of this encounter
--- OUTSIDE RECORDS SUMMARY | 2025-04-19 21:01 | XMS_ITS | Encounter Summary ---
Author Organization [facility] Address [address] [place] [address] Care Team Providers Care Dough Mixing Machine Operator Name Role Phone Mindy Brandon Primary Care Provider [phone] Encounter Details Date Type Department Care Team (Latest Contact Info) Description 02/23/2025 Travel Social History Tobacco Use Types Packs/Day [...] Description 05/31/2025 3:00 PM EDT Office Visit [facility] [address] [place] [address] Mima Calderon MD [address] [place] [address] documented as of this encounter Visit Diagnoses Not on filedocumented in this encounter Care Teams Dough Mixing Machine Operator Relationship Specialty Start Date End Date Mindy Brandon PA [address] [facility] [address] [place] [address] PCP - General Physician Fermentation Operator 12/02/24 documented as of this encounter
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
--- OUTSIDE RECORDS SUMMARY | 2025-04-19 21:01 | XMS_ITS | Encounter Summary ---
[facility] Organization [facility] Address [address] [place] [address] Care Team Providers Care Interior Design Faculty Member Name Role Phone Mindy Brandon Primary Care Provider [phone] Encounter Details Date Type Department Care Team (Late st Contact Info) Description 02/21/2025 Telephone [facility] [address] [place] [phone] Arabella Davey [facility] [address] [place] [id number] Social History Tobacco Use Types Packs/Day [...] encounter Miscellaneous Notes * Telephone Encounter - Erlinda Garces RegSched Rep - 02/21/2025 12:05 PM EDT Pt called and LVM regarding her upcoming testing on 02/23/25. Pt stated that she had not been contacted by regarding this appointment and is requesting a call back to go over questions and details. documented in this encounter Plan of Treatment Upcoming Encounters Date Type Department Care Team (Late st Contact Info) Description 05/31/2025 3:00 PM EDT Office Visit [facility] [address] [place] [phone] Mima Calderon MD [address] [place] [address] documented as of this encounter Visit Diagnoses Not on filedocumented in this encounter Care Teams Interior Design Faculty Member Relationship Specialty Start Date End Date Mindy Brandon PA [address] [facility] [address] [place] [address] PCP - General Physician Medical Center Representative 12/02/24 documented as of this encounter
--- NOTE | 2025-04-19 21:02 | HMH.EDCP ---
Discharge Plan Disposition Patient Disposition: Home, Self-Care Prescriptions Prescriptions: No Action metoprolol succinate 50 mg tablet extended release 24 hr 50 mg PO DAILY sumatriptan succinate 100 mg tablet 100 mg PO NEEDED PRN (Reason: Headache) Patient Comments: TAKE 1 TABLET AT START OF HEADACHE. MAY TAKE ANOTHER TABLET IN 2 HOURS IF NEEDED. DO NOT TAKE MORE THAN 2 TABLETS IN 24 HOURS. amlodipine 5 mg tablet 5 mg PO DAILY Patient Comments: TAKE 1 TABLET 1 TIME EACH DAY aspirin 81 mg tablet,delayed release (DR/EC) 81 mg PO DAILY Patient Comments: TAKE 1 TABLET 1 TIME EACH DAY ropinirole 0.5 mg tablet 0.5 mg PO HS lisinopril-hydrochlorothiazide 20-25 mg tablet 1 tab PO DAILY hydroxyzine HCl 25 mg tablet 25 mg PO TID Patient Comments: TAKE 1 TABLET 3 TIMES EACH DAY NEEDED Referrals Follow up/Referrals: Provider,Referral, MD [Referring, Medical] - See instructions Activity Restrictions/Add. Instructions Additional Instructions/Restrictions: Please follow-up with your primary care provider and your client specialist. Please return to the emergency department if you develop any new or worsening symptoms or become concerned for your health. Clinical Impressions Clinical Impression: Chest pain Print Language Print Language: Upper Sorbian Discharge ED Provider: Bobo Mcgovern HPI <Angeli Day (ED), HUMAN RESOURCES BENEFITS SPECIALIST - Last Filed: 04/19/25 21:55> General Chief Complaint: Chest Pain Stated Complaint: Chest Pain Time Seen by Provider: 04/19/25 20:59 History of Present Illness HPI narrative: 54-year-old female presents to the ED with chest pain. Patient states that chest pain started an hour ago she became dizzy and vomited and started having shortness of breath. She says the pain started in the center of her chest it is sharp and stabbing and is causing jaw tingling in the left jaw. She states that the pain also goes to the right side of her chest. Patient took nitro at 2037. She says it did help. She has already had 1 aspirin 81 mg. Patient states she has a heart attack in the past but she does not know when. She has an appointment on the to go to [place] with . 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 She states that she is probably going to have a heart cath at that time. Related Data Home Medications ?Medication ?Instructions ?Recorded ?Confirmed amlodipine 5 mg tablet 5 mg PO DAILY 11/19/24 11/19/24 aspirin 81 mg tablet,delayed 81 mg PO DAILY 11/19/24 11/19/24 release hydroxyzine HCl 25 mg tablet 25 mg PO TID 11/19/24 11/19/24 lisinopril 20 1 tab PO DAILY 11/19/24 11/19/24 mg-hydrochlorothiazide 25 mg tablet metoprolol succinate 50 mg 50 mg PO DAILY 11/19/24 11/19/24 tablet,extended release 24 hr ropinirole 0.5 mg tablet 0.5 mg PO HS 11/19/24 11/19/24 sumatriptan succinate 100 mg tablet 100 mg PO NEEDED PRN Headache 11/19/24 11/19/24 Allergies Allergy/AdvReac Type Severity Reaction Status Date / Time ciprofloxacin (From Cipro) Allergy Hives Verified 11/19/24 18:06 vancomycin Allergy Hives Verified 11/19/24 18:06 PFS <Angeli Day (ED), HUMAN RESOURCES BENEFITS SPECIALIST - Last Filed: 04/19/25 21:55> COMM[facility] Disclaimer: The information contained in this section may have been updated after the patient was seen, as this information can be updated by other users. Social History Smoking Status: Former smoker alcohol intake: never current occupational status: other Travel in the last 8 weeks?: None Have you lived/traveled outside US in past 30 days?: No Contact w/someone who lives/traveled outside US past 30 days?: No Exposure to someone with infectious disease in past 14 days?: No Do you have a fever (greater than 100.4 F or 38 C)?: No Have you tested positive for COVID-19?: No Exposed to someone with COVID-19 in past 14 days?: No Do you have a sore throat?: No Do you have a cough?: No Do you have any weakness?: No Do you have any diarrhea?: No Are you experiencing any unusual bleeding?: No Do you have any muscle aches/pain?: No Do you have any abdominal pain?: No Are you experiencing loss of taste or smell?: No <Angeli Day (ED), HUMAN RESOURCES BENEFITS SPECIALIST - Last Filed: 04/19/25 21:55> ROS Obtained: Yes Systems reviewed as appropriate & no additional complaints except as documented Constitutional Constitutional: Reports as per HPI Physical Exam <Angeli Villarregine (ED), HUMAN RESOURCES BENEFITS SPECIALIST - Last Filed: 04/19/25 21:55> General General appearance: alert, anxious and in distress Head Head exam: normocephalic Eye Eye exam: Present PERRL ENT ENT exam: Present mucous membranes moist Neck Neck exam: Present trachea midline Chest Chest inspection: Present symmetric chest wall rise Respiratory Respiratory exam: Present normal lung sounds bilaterally Cardiovascular Cardiovascular exam: Present regular rate, normal rhythm, normal heart sounds, +S1 and +S2 Abdominal Exam Abdominal exam: Present soft and normal bowel sounds Extremities Exam Extremities exam: Present normal inspection, full ROM and normal capillary refill Back Exam Back exam: Present full ROM Neurological Exam Neurological exam: Present alert, oriented X3 and normal gait Psychiatric Psychiatric exam: Present normal affect and normal mood Skin Skin exam: Present warm and dry HEART Score <Bobo Mcgovern MD - Last Filed: 04/20/25 01:47> HEART Score HEART Score assessment performed?: Yes History (anamnesis): Moderately suspicious ECG: Normal Age: 45-65 years Risk factors: 1-2 risk factors Troponin: </= normal limit HEART Score: 3 Critical Care <Bobo Mcgovern MD - Last Filed: 04/20/25 01:47> Critical Care Time Critical Care Time: No Medical Decision Making <Angeli Villarregine (ED), HUMAN RESOURCES BENEFITS SPECIALIST - Last Filed: 04/19/25 21:55> Vital Signs Vital Signs: 04/19/25 20:59 04/19/25 21:01 04/19/25 21:03 Temperature 97.9 F Temperature Source Oral Pulse Rate 74 70 Pulse Rate [Right Radial] 70 Respiratory Rate 16 20 Blood Pressure 123/86 Blood Pressure [Right Arm] 133/94 H Blood Pressure Mean Blood Pressure Mean [Right Arm] 107 Blood Pressure Source [Right Arm] Automatic Cuff Blood Pressure Position [Right Arm] Supine 02 Sat by Pulse Oximetry 99 100 Oxygen Delivery Method Room Air 04/19/25 21:30 04/19/25 22:01 04/19/25 22:30 Temperature Temperature Source Pulse Rate 71 65 67 Pulse Rate [Right Radial] Respiratory Rate 23 24 20 Blood Pressure 92/63 L 105/76 L 122/76 Blood Pressure [Right Arm] Blood Pressure Mean 85 92 Blood Pressure Mean [Right Arm] Blood Pressure Source [Right Arm] Blood Pressure Position [Right Arm] 02 Sat by Pulse Oximetry 98 99 95 Oxygen Delivery Method Room Air 04/19/25 23:00 04/19/25 23:30 04/20/25 00:01 Temperature Temperature Source Pulse Rate 56 L 56 L 54 L Pulse Rate [Right Radial] Respiratory Rate 11 L 14 15 Blood Pressure 103/72 L 104/68 L 119/86 Blood Pressure [Right Arm] Blood Pressure Mean Blood Pressure Mean [Right Arm] Blood Pressure Source [Right Arm] Blood Pressure Position [Right Arm] 02 Sat by Pulse Oximetry 99 97 99 Oxygen Delivery Method Room Air 04/20/25 00:31 04/20/25 01:00 Temperature Temperature Source Pulse Rate 61 58 L Pulse Rate [Right Radial] Respiratory Rate 16 14 Blood Pressure 130/89 112/85 Blood Pressure [Right Arm] Blood Pressure Mean Blood Pressure Mean [Right Arm] Blood Pressure Source [Right Arm] Blood Pressure Position [Right Arm] 02 Sat by Pulse Oximetry 98 96 Oxygen Delivery Method Room Air Lab Data Labs: Lab Results 04/19/25 21:02: WBC 7.7, RBC 4.23, Hgb 11.7 L, Hct 33.1 L, MCV 78.3 L, MCH 27.7, MCHC 35.3, RDW 15.2, Plt Count 220, MPV 10.3, Neut % (Auto) 56.6, Lymph % (Auto) 36.4, Hutchinson % (Auto) 5.7, Eos % (Auto) 0.3, Baso % (Auto) 0.3, Neut # (Auto) 4.4, Lymph # (Auto) 2.8, Hutchinson # (Auto) 0.4, Eos # (Auto) 0.0, Baso # (Auto) 0.0, D-Dimer 0.87 H, Sodium 139, Potassium 4.2, Chloride 109 H, Carbon Dioxide 20 L, Anion Gap 14.2, BUN 22 H, Creatinine 1.20 H, Estimated Creat Clear 78, Estimated GFR 47 L, Est GFR ( Amer) 56 L, Glucose 109 H, Calcium 9.7, Magnesium 1.1 L, Total Bilirubin 1.1, AST 24, ALT 16, Alkaline Phosphatase 75, Troponin I < 0.01, Total Protein 7.5, Albumin 4.7, Globulin 2.8, Albumin/Globulin Ratio 1.7, Lipase 112, HCV Ab DONI w/Rflx PCR Qn Reactive, HIV Ag/Ab Combo Qual Negative 04/20/25 00:04: Troponin I < 0.01 04/19/25 21:02 04/19/25 21:02 Response Orders (Tests/Meds): ED MEDICATIONS Discontinued Medications Generic Name Dose Route Start Last Admin Trade Name Edith PRN Reason Stop Dose Admin Aspirin 243 mg 04/19/25 20:59 04/19/25 21:07 Aspirin 81mg Chewable Tablet PO 04/19/25 21:00 243 mg ONCE ONE Administration Belladonna Alkaloids 60 ml 04/20/25 00:44 04/20/25 00:45 Belladonna Alkaloids 60 Ml Ml PO 04/20/25 00:45 60 ml ONCE ONE Administration Magnesium Sulfate 2 gm in 50 mls @ 50 mls/hr 04/19/25 21:49 04/19/25 21:55 Magnesium Sulfate 2gm/50ml Premix IV 04/19/25 22:48 50 mls/hr ONCE ONE Administration Iopamidol 70 ml 04/19/25 22:11 04/19/25 22:14 Iopamidol-370 (76%);100ml Bottle IV 04/19/25 22:12 70 ml ONCE ONE Administration Nitroglycerin 0.4 mg 04/19/25 20:59 04/19/25 21:08 Nitroglycerin 0.4mg Sl Tablet SL 04/19/25 21:00 0.4 mg ONCE ONE Administration Ondansetron HCl 4 mg 04/20/25 00:06 04/20/25 00:09 Ondansetron 4mg/2ml Vial IV 04/20/25 00:07 4 mg ONCE ONE Administration Sodium Chloride 50 ml 04/19/25 22:11 04/19/25 22:14 0.9 % Sodium Chloride 50 Ml Vial IV 04/19/25 22:12 50 ml ONCE ONE Administration Sodium Chloride 10 ml 04/19/25 22:11 04/19/25 22:14 Sodium Chloride 0.9% 10ml Syr (Rad Only) IV 04/19/25 22:12 10 ml ONCE ONE Administration ORDERS Category Date Time Status CTA Chest [CT angio chest PE protocol] Stat Cat Scan 04/19/25 21:48 Completed Chest XR -- portable [XR chest portable] Stat Exams 04/19/25 20:59 Completed CBC [Complete Blood Count Auto Diff] Stat Lab 04/19/25 21:02 Completed Comprehensive Metabolic Panel Stat Lab 04/19/25 21:02 Completed D-Dimer Stat Lab 04/19/25 21:02 Completed HCV RNA PCR, Quant Stat Lab 04/19/25 21:02 Received HIV Combo Stat Lab 04/19/25 21:02 Completed Hepatitis C Ab Qual. W/ RFX Stat Lab 04/19/25 21:02 Completed Lipase Stat Lab 04/19/25 21:02 Completed Magnesium Stat Lab 04/19/25 21:02 Completed Trop I [Troponin I] Stat Lab 04/19/25 21:02 Completed Troponin I Q3H Lab 04/19/25 23:59 Completed Troponin I Q3H Lab 04/20/25 02:59 Ordered EKG Request [ECG Request] Stat Y 04/20/25 00:31 Ordered MDM Narrative Medical Decision Narrative: This is a 54-year-old female presenting to the ED today for dizziness, chest pain in the center of her chest that is sharp and stabbing. Patient tells me that it all started 1 hour ago. She told the nurse that started yesterday and got worse 1 hour ago. Patient arrives to the ED stable but anxious appearing, afebrile. Patient will be worked up with labs, EKG, chest x-ray. Differential includes ACS, CAD, electrolyte derangement, PE, among others. Initial workup shows dimer 0.87 so I will order a CTA. Mag was 1.1 so I ordered 2 g of mag. BUN was 22 and creatinine was 1.2. Will await imaging. <Bobo Mcgovern MD - Last Filed: 04/20/25 01:47> Frank Inquiry Pt receiving controlled substance: No Vital Signs Vital Signs: 04/19/25 20:59 04/19/25 21:01 04/19/25 21:03 Temperature 97.9 F Temperature Source Oral Pulse Rate 74 70 Pulse Rate [Right Radial] 70 Respiratory Rate 16 20 Blood Pressure 123/86 Blood Pressure [Right Arm] 133/94 H Blood Pressure Mean Blood Pressure Mean [Right Arm] 107 Blood Pressure Source [Right Arm] Automatic Cuff Blood Pressure Position [Right Arm] Supine 02 Sat by Pulse Oximetry 99 100 Oxygen Delivery Method Room Air 04/19/25 21:30 04/19/25 22:01 04/19/25 22:30 Temperature Temperature Source Pulse Rate 71 65 67 Pulse Rate [Right Radial] Respiratory Rate 23 24 20 Blood Pressure 92/63 L 105/76 L 122/76 Blood Pressure [Right Arm] Blood Pressure Mean 85 92 Blood Pressure Mean [Right Arm] Blood Pressure Source [Right Arm] Blood Pressure Position [Right Arm] 02 Sat by Pulse Oximetry 98 99 95 Oxygen Delivery Method Room Air 04/19/25 23:00 04/19/25 23:30 04/20/25 00:01 Temperature Temperature Source Pulse Rate 56 L 56 L 54 L Pulse Rate [Right Radial] Respiratory Rate 11 L 14 15 Blood Pressure 103/72 L 104/68 L 119/86 Blood Pressure [Right Arm] Blood Pressure Mean Blood Pressure Mean [Right Arm] Blood Pressure Source [Right Arm] Blood Pressure Position [Right Arm] 02 Sat by Pulse Oximetry 99 97 99 Oxygen Delivery Method Room Air 04/20/25 00:31 04/20/25 01:00 Temperature Temperature Source Pulse Rate 61 58 L Pulse Rate [Right Radial] Respiratory Rate 16 14 Blood Pressure 130/89 112/85 Blood Pressure [Right Arm] Blood Pressure Mean Blood Pressure Mean [Right Arm] Blood Pressure Source [Right Arm] Blood Pressure Position [Right Arm] 02 Sat by Pulse Oximetry 98 96 Oxygen Delivery Method Room Air Lab Data Labs: Lab Results 04/19/25 21:02: WBC 7.7, RBC 4.23, Hgb 11.7 L, Hct 33.1 L, MCV 78.3 L, MCH 27.7, MCHC 35.3, RDW 15.2, Plt Count 220, MPV 10.3, Neut % (Auto) 56.6, Lymph % (Auto) 36.4, Hutchinson % (Auto) 5.7, Eos % (Auto) 0.3, Baso % (Auto) 0.3, Neut # (Auto) 4.4, Lymph # (Auto) 2.8, Hutchinson # (Auto) 0.4, Eos # (Auto) 0.0, Baso # (Auto) 0.0, D-Dimer 0.87 H, Sodium 139, Potassium 4.2, Chloride 109 H, Carbon Dioxide 20 L, Anion Gap 14.2, BUN 22 H, Creatinine 1.20 H, Estimated Creat Clear 78, Estimated GFR 47 L, Est GFR ( Amer) 56 L, Glucose 109 H, Calcium 9.7, Magnesium 1.1 L, Total Bilirubin 1.1, AST 24, ALT 16, Alkaline Phosphatase 75, Troponin I < 0.01, Total Protein 7.5, Albumin 4.7, Globulin 2.8, Albumin/Globulin Ratio 1.7, Lipase 112, HCV Ab DONI w/Rflx PCR Qn Reactive, HIV Ag/Ab Combo Qual Negative 04/20/25 00:04: Troponin I < 0.01 Response Orders (Tests/Meds): ED MEDICATIONS Discontinued Medications Generic Name Dose Route Start Last Admin Trade Name Freq PRN Reason Stop Dose Admin Aspirin 243 mg 04/19/25 20:59 04/19/25 21:07 Aspirin 81mg Chewable Tablet PO 04/19/25 21:00 243 mg ONCE ONE Administration Belladonna Alkaloids 60 ml 04/20/25 00:44 04/20/25 00:45 Belladonna Alkaloids 60 Ml Ml PO 04/20/25 00:45 60 ml ONCE ONE Administration Magnesium Sulfate 2 gm in 50 mls @ 50 mls/hr 04/19/25 21:49 04/19/25 21:55 Magnesium Sulfate 2gm/50ml Premix IV 04/19/25 22:48 50 mls/hr ONCE ONE Administration Iopamidol 70 ml 04/19/25 22:11 04/19/25 22:14 Iopamidol-370 (76%);100ml Bottle IV 04/19/25 22:12 70 ml ONCE ONE Administration Nitroglycerin 0.4 mg 04/19/25 20:59 04/19/25 21:08 Nitroglycerin 0.4mg Sl Tablet SL 04/19/25 21:00 0.4 mg ONCE ONE Administration Ondansetron HCl 4 mg 04/20/25 00:06 04/20/25 00:09 Ondansetron 4mg/2ml Vial IV 04/20/25 00:07 4 mg ONCE ONE Administration Sodium Chloride 50 ml 04/19/25 22:11 04/19/25 22:14 0.9 % Sodium Chloride 50 Ml Vial IV 04/19/25 22:12 50 ml ONCE ONE Administration Sodium Chloride 10 ml 04/19/25 22:11 04/19/25 22:14 Sodium Chloride 0.9% 10ml Syr (Rad Only) IV 04/19/25 22:12 10 ml ONCE ONE Administration ORDERS Category Date Time Status CTA Chest [CT angio chest PE protocol] Stat Cat Scan 04/19/25 21:48 Completed Chest XR -- portable [XR chest portable] Stat Exams 04/19/25 20:59 Completed CBC [Complete Blood Count Auto Diff] Stat Lab 04/19/25 21:02 Completed Comprehensive Metabolic Panel Stat Lab 04/19/25 21:02 Completed D-Dimer Stat Lab 04/19/25 21:02 Completed HCV RNA PCR, Quant Stat Lab 04/19/25 21:02 Received HIV Combo Stat Lab 04/19/25 21:02 Completed Hepatitis C Ab Qual. W/ RFX Stat Lab 04/19/25 21:02 Completed Lipase Stat Lab 04/19/25 21:02 Completed Magnesium Stat Lab 04/19/25 21:02 Completed Trop I [Troponin I] Stat Lab 04/19/25 21:02 Completed Troponin I Q3H Lab 04/19/25 23:59 Completed Troponin I Q3H Lab 04/20/25 02:59 Ordered EKG Request [ECG Request] Stat Y 04/20/25 00:31 Ordered MDM Narrative Medical Decision Narrative: This is a 54-year-old female presenting to the ED today for dizziness, chest pain in the center of her chest that is sharp and stabbing. Patient tells me that it all started 1 hour ago. She told the nurse that started yesterday and got worse 1 hour ago. Patient arrives to the ED stable but anxious appearing, afebrile. Patient will be worked up with labs, EKG, chest x-ray. Differential includes ACS, CAD, electrolyte derangement, PE, among others. Initial workup shows dimer 0.87 so I will order a CTA. Mag was 1.1 so I ordered 2 g of mag. BUN was 22 and creatinine was 1.2. Will await imaging. Shaniqua MARTINEZ: I assumed care of the patient at the time of handoff from the prior provider. I assumed care of patient while they are waiting for their second troponin. CT imaging was independently interpreted by me and showed evidence of PE or pneumonia. Patient reports that she is still having a little bit of discomfort, this completely resolved with a GI cocktail. On reassessment, her repeat troponin returned undetectably low. I had interactive discussion with patient regarding her presentation. She has a low heart score and has a negative troponin x 2 as well as an EKG without ischemic changes. Symptomatic improvement with interventions is also reassuring. Overall, low concern for ischemic pathology at this time given negative workup and symptomatic improvement. Recommend she call and follow-up with her client specialist and return with any new or worsening symptoms. I was consulted by the PRIYA, and we discussed the complexity of the problems being addressed. I approved the treatment and management plan for this patient?s care in the Emergency Department, thus performing a substantive portion of the medical decision making. Bobo Mcgovern MD
[2025-04-19] MEDS: ASPIRIN 81MG CHEWABLE TABLET 243 MG PO (21:07)
[2025-04-19] MEDS: NITROGLYCERIN 0.4MG SL TABLET 0.4 MG SL (21:08)
[2025-04-19 21:09] LABS: Hematocrit 33.1 % (37.0-47.0); Hemoglobin 11.7 g/dL (12.2-16.2); Immature Granulocytes % 0.7 %; Mean Corpuscular HGB Conc 35.3 g/dL (31.8-35.4); Mean Corpuscular Hemoglobin 27.7 pg (27.0-31.2); Mean Corpuscular Volume 78.3 fl (81-99); Nucleated Red Blood Cells % 0 %; Platelet Count 220 K/mm3 (142-424); Red Blood Count 4.23 M/mm3 (4.20-5.40); Red Cell Distribution Width-SD 43.1 fL; White Blood Count 7.7 K/mm3 (4.8-10.8)
[2025-04-19 21:21] LABS: Alanine Aminotransferase 16 U/L (12-78); Albumin Level 4.7 g/dl (3.5-5.0); Albumin/Globulin Ratio 1.7 (1.1-1.8); Alkaline Phosphatase 75 U/L (38-126); Anion Gap 14.2 mEq/L (5-15); Aspartate Amino Transferase 24 U/L (14-36); Bilirubin,Total 1.1 mg/dl (0.2-1.3); Blood Urea Nitrogen 22 mg/dl (7-17); Calcium 9.7 mg/dl (8.4-10.2); Carbon Dioxide 20 mmol/L (22.0-30.0); Chloride 109 mmol/L (98-107); Creatinine Clearance Estimated 78 mL/min (50-200); Creatinine,Serum 1.20 mg/dl (0.52-1.04); Estimated Glomerular Filt Rate 47 ml/min (>60); GFR (African American) 56 ML/MIN (>60); Globulin 2.8 g/dL (1.3-3.2); Glucose 109 mg/dl (74-100); Lipase 112 U/L (23-300); Magnesium 1.1 mg/dl (1.6-2.3); Potassium 4.2 mmoL/L (3.5-5.1); Sodium 139 mmol/L (136-145); Total Protein,Serum 7.5 g/dl (6.3-8.2)
[2025-04-19 21:26] LABS: D-Dimer 0.87 ug/mL (0.0-0.5)
[2025-04-19 21:33] LABS: Troponin I < 0.01 ng/ml (0.00-0.034)
--- NOTE | 2025-04-19 21:48 | CT_ITS ---
PROCEDURE INFORMATION: Exam: CTA Chest With Contrast Exam date and time: 04/19/2025 10:12 PM Age: 54 years old Clinical indication: Abnormal findings; Abnormal diagnostic tests; Elevated d-dimer; Additional info: Dimer elevated TECHNIQUE: Imaging protocol: Computed tomographic angiography of the chest with contrast. Exam focused on the arteries. 3D rendering (Not supervised by radiologist): MIP and/or 3D reconstructed images were created by the technologist. Radiation optimization: All CT scans at this facility use at least one of these dose optimization techniques: automated exposure control; mA and/or kV adjustment per patient size (includes targeted exams where dose is matched to clinical indication); or iterative reconstruction. Contrast material: ISOVUE; Contrast volume: 70 ml; Contrast route: INTRAVENOUS (IV); COMPARISON: CT ANGIO CHEST PE PROTOCOL 10/26/2023 12:08 PM FINDINGS: Pulmonary arteries: No central or segmental pulmonary arterial intraluminal filling defects identified. Aorta: Unremarkable. No aortic aneurysm. No aortic dissection. Lungs: Mild air trapping.. No consolidation. No masses. Pleural spaces: Unremarkable. No pneumothorax. No pleural effusion. Heart: Unremarkable. No cardiomegaly. No pericardial effusion. Lymph nodes: Unremarkable. No enlarged lymph nodes. Bones/joints: Unremarkable. No acute fracture. Soft tissues: Unremarkable. IMPRESSION: 1. No central or segmental pulmonary arterial embolism identified. 2. Mild pulmonary air trapping.
[2025-04-19] MEDS: MAGNESIUM SULFATE IN WATER 2 GM/50 ML PIGGYBACK IV (21:55)
[2025-04-19] MEDS: 0.9 % SODIUM CHLORIDE 50 ML VIAL IV (22:14)
[2025-04-19] MEDS: SODIUM CHLORIDE 0.9% 10ML SYR (RAD ONLY) 10 ML IV (22:14)
[2025-04-19] MEDS: IOPAMIDOL-370 (76%);100ML BOTTLE 70 ML IV (22:14)
[2025-04-19 22:27] LABS: Hepatitis C Ab Qual. W/ RFX REACTIVE (Negative)
[2025-04-20 00:01] VITALS: BP 119/86; PULSE 54; RESP 15; O2SAT 99
[2025-04-20] MEDS: ONDANSETRON 4MG/2ML VIAL 4 MG IV (00:09)
[2025-04-20 00:31] VITALS: BP 130/89; PULSE 61; RESP 16; O2SAT 98
[2025-04-20 00:38] LABS: Troponin I < 0.01 ng/ml (0.00-0.034)
[2025-04-20] MEDS: BELLADONNA ALKALOIDS 60 ML ML PO (00:45)
[2025-04-20 01:00] VITALS: BP 112/85; PULSE 58; RESP 14; O2SAT 96
[2025-04-20 01:31] VITALS: BP 112/83; PULSE 55; RESP 16; TEMP 36.6; O2SAT 97
== END 2025-04-20 01:33 | disposition home or self-care (01) ==
PROVIDERS: Nurse Practitioner; Student in an Organized Health Care Education/Training Program; Emergency Provider Emergency Medicine; PCP Physician Assistant
DX: R07.89 Other chest pain (principal); R42 Dizziness and giddiness
CPT/HCPCS: 71045; 71275; 80053; 83690; 83735; 84484; 85025; 85378; 86803; 87389; 87522; 93005; 96365; 96375; 99285; J2405; J3475; Q9967

== ENCOUNTER 2025-05-16 21:47 | Emergency (ER) | payer OTHER, SELFPAY ==
--- OUTSIDE RECORDS SUMMARY | 2023-12-04 05:30 | XMS_ITS ---
Author Organization [facility] Address [address] [facility] [place] [address] Care Team Providers Care Surgical Technologist Name Role Phone Genia Lynn Primary Care Provider [phone] REASON FOR VISIT Vivitrol Inj Encounters Encounter Location Date Provider Diagnosis [address] [address] 12/04/2023 Genia Lynn Plan Of Treatment No Information Progress Notes * Samara LEALDOB:[birth year] (54 yo F)Acc No.[id number]:12/04/2023 Patient: Samara TEE Provider: Tahira Lynn APRN :1970 A ge:53 Y S ex:Female Date:12/04/2023 Phone: Address:[address] [facility] Subjective: * Chief Complaints: * 1 . Vivitrol Inj. * Medical History: Objective: * Vitals: Assessment: Plan: * Treatment: * Images: Billing Information: * Visit Code: * Procedure Codes: * Electronic signature of Satya Lynn APRN on 05/16/2025 at 10:28 PM EDT Sign off status: Pending Visit Status: C ANC (Cancelled) * Provider: Tahira Lynn APRN Date: 0 12/04/2023 Generated for Joselyn boyce/Stalin/eTransmitting on: 05/16/2025 10:28 PM EDT
--- OUTSIDE RECORDS SUMMARY | 2023-12-18 06:00 | XMS_ITS ---
Author Organization [facility] Address [address] [facility] [place] [address] Care Team Providers Care Pewter Finisher Name Role Phone Genia Lynn Primary Care Provider REASON FOR VISIT Vivitrol INj Encounters Encounter Location Date Provider Diagnosis [address] [address] 12/18/2023 Genia Lynn Plan Of Treatment No Information Progress Notes * Samara LEALDOB:[birth year] (54 yo F)Acc No.[id number]:12/18/2023 Patient: Samara TEE Provider: Tahira Lynn APRN :1970 A ge:53 Y S ex:Female Date:12/18/2023 Phone: Address:[address] [facility] Subjective: * Chief Complaints: * 1 . Vivitrol INj. * Medical History: Objective: * Vitals: Assessment: Plan: * Treatment: * Images: Billing Information: * Visit Code: * Procedure Codes: * Electronic signature of Satya Lynn APRN on 05/16/2025 at 10:28 PM EDT Sign off status: Pending Visit Status: C ANC (Cancelled) * Provider: Tahira Lynn APRN Date: 12/18/2023 Generated for Joselyn boyce/Stalin/eTransmitting on: 05/16/2025 10:28 PM EDT
--- OUTSIDE RECORDS SUMMARY | 2024-01-01 05:15 | XMS_ITS ---
Author Organization [facility] Address [address] [facility] [place] [address] Care Team Providers Care Systems Program Manager Name Role Phone Genia Lynn Primary Care Provider REASON FOR VISIT Vivitrol Inj Encounters Encounter Location Date Provider Diagnosis [address] [address] 01/01/2024 Genia Lynn Plan Of Treatment No Information Progress Notes * Samara LEALDOB:[birth year] (54 yo F)Acc No.[id number]:01/01/2024 Patient: Smaara TEE Provider: Tahira Lynn APRN :1970 A ge:53 Y S ex:Female Date:01/01/2024 Phone: Address:[address] [facility] Subjective: * Chief Complaints: * 1 . Vivitrol Inj. * Medical History: Objective: * Vitals: Assessment: Plan: * Treatment: * Images: Billing Information: * Visit Code: * Procedure Codes: * Electronic signature of Satya Lynn APRN on 05/16/2025 at 10:28 PM EDT Sign off status: Pending Visit Status: C ANC (Cancelled) * Provider: Tahira Lynn APRN Date: 01/01/2024 Generated for Joselyn boyce/Stalin/eTransmitting on: 05/16/2025 10:28 PM EDT
--- OUTSIDE RECORDS SUMMARY | 2025-03-23 08:15 | XMS_ITS | Encounter Summary ---
Author Organization [employer] ([place], [place], [place], [place]) Address [address] [place] [address] Care Team Providers Care Process Automation Engineer Name Role Phone Lloyd Roberts MD Primary Care Provider Reason for Referral * Other (Routine) - New Request Specialty Diagnoses / Procedures Referred By Contac t Referred To Contact Diagnoses Complex tear of lateral meniscus of left knee, sequela Pre-op testing Procedures ECG 12 lead Сергей Sandoval MD [address] [place] [address] Phone: tel: fax: Referral ID Status Reason Start Date Expiration Date V isits Requested Visits Authorized [id number] New Request 03/23/2025 03/23/2026 1 1 * Diagnostic X-Ray (Routine) - New Request Specialty Diagnoses / Procedures Referred By Ovidio t Referred To Contact Radiology Diagnoses Complex tear of lateral meniscus of left knee, sequela Pre-op testing Procedures XR chest 2 views Сергей Sandoval MD [address] [place] [address] Phone: tel: fax: [facility] [address] [place] [phone] Phone: tel: fax: Referral ID Status Reason Start Date Expiration Date V isits Requested Visits Authorized [id number] New Request 03/23/2025 03/23/2026 1 1 Reason for Visit * Reason Comments Follow-up Left knee to discuss surgery Encounter Details Date Type Department Care Team (Late st Contact Info) Description 03/23/2025 8:15 AM EDT Office Visit [facility] - [address] [phone] Сергей Sandoval MD [address] [place] [address] Complex tear of lateral meniscus of [...] Date Josue rded Speak language other than Croatian at home Not on file 10/16/2023 Want [...] 8:15 AM EDT NAME: Samara Richardson CSN: [id number] : 1970 PCP: Lloyd Roberts MD REASON [...] your prescription refills for excessive abuse or equipment operator intermodal yard use. If necessary, you will be referred to body technician/painter. We will monitor your use of scheduled drugs through the [facility] program. In addition, we will follow the monitoring procedures required by the [facility]. The side effects of Schedule II [...] examination documented in this encounter Care Teams Process Automation Engineer Relationship Specialty Start Date End Date Lloyd Roberts MD [address] [place] [phone] PCP - General Family Medicine 09/26/22 03/28/25 documented as of this encounter
--- OUTSIDE RECORDS SUMMARY | 2025-04-04 23:59 | XMS_ITS | Encounter Summary ---
Author Organization [employer] ([place], [place], [place], [place]) Address [address] [place] [address] Care Team Providers Care Fisher Reef Net Name Role Phone Mindy Brandon Primary Care Provider Encounter Details Date Type Department Care Team (Late st Contact Info) Description 04/05/2025 11:59 PM EDT Anesthesia Event [facility] Surgery [facility] [address] [place] [address] Ginna Cardona CRNA Anesthesia Record Procedure Summary Procedure Name Responsible Anesthesiologist Anesthesia Start Time Anesthesia Stop Time ARTHROSCOPY, KNEE, WITH MENISCECTOMY, MENISCUS REPAIR, AND CHONDROPLASTY SHAVING, (canceled) Events No events on file. Meds * [...] Date Josue rded Speak language other than Greek at home Not on file 10/16/2023 Want [...] on filedocumented in this encounter Care Teams Fisher Reef Net Relationship Specialty Start Date End Date Mindy Brandon PA [address] [place] [phone] PCP - General Physician Corporate Coordinator 03/29/25 documented as of this encounter
--- OUTSIDE RECORDS SUMMARY | 2025-05-05 10:20 | XMS_ITS | Encounter Summary ---
Author Organization Healthcare Address [address] [place] [address] Care Team Providers Care Quality Assurance Technician Name Role Phone Mindy Brandon Primary Care Provider [phone] Reason for Visit * Reason Comments Advice Only * Consultation (Routine) - Pending Review Specialty Diagnoses / Procedures Referred By Contac t Referred To Contact Diagnoses Abnormal finding on imaging Procedures MT OFFICE/OUTPATIENT NEW MODERATE MDM 45-59 MINUTES 67 ([email or web address]) - Ambulatory Referral to Cardiothoracic Surgery Arabella Davey APRN Phone: tel: fax: Rdorick Gu MD [address] [facility] [address] [place] [address] Phone: tel: fax: Referral ID Status Reason Start Date Expiration Date V isits Requested Visits Authorized [id number] Pending Review 02/28/2025 05/30/2026 1 1 Encounter Details Date Type Department Care Team (Late st Contact Info) Description 05/05/2025 10:20 AM EDT Office Visit [facility] [place] [address] [place] [address] Gregorio Mosqueda MD [address] [place] [address] Mild CAD (Primary Dx) Social History Tobacco Use Types Packs/Day Years Used Date Smoking Tobacco: Every Day Cigarettes Smokeless Tobacco: Never Tobacco Cessation:Ready to Q uit: Not Asked; Counseling Given: Not Answered Alcohol Use Standard Drinks/Week Comments No 0 (1 standard drink = 0.6 oz pur e alcohol) PHQ-2 Answer Date Recorded Patient Health Questionnaire-2 Score 0 05/05/2025 PHQ-9 Answer Date Recorded Patient Health Questionnaire-9 Score 0 05/05/2025 AUDIT-C Answer Date Recorded Q1: How often do you have a drink containing alc ohol? Never 04/25/2025 Average Number of Drinks Not on file 025 Frequency of Binge Drinking Not on file 03/29 Comments Unknown Sex and Gender Information Value Date Recorded Sex Assigned at Not on file Legal Sex Female 8:00 PM EDT Gender Identity Not on file Sexual Orientation Not on file documented as of this encounter Last Filed Vital Signs Vital Sign Reading Time Taken Comments Blood Pressure 124/88 05/05/2025 10:09 AM EDT Pulse 85 05/05/2025 10:09 AM EDT Temperature - - Respiratory Rate - - Oxygen Saturation 97% 05/05/2025 10:09 AM EDT Inhaled Oxygen Concentration - - Weight 93.2 kg (205 lb 7.5 oz) 05/05/2025 10:09 AM EDT Height 154.9 cm (5' 1 ) 05/05/2025 10:09 AM EDT Body Mass Index 38.82 05/05/2025 10:09 AM EDT documented in this encounter Functional Status * Over the past 2 weeks, how often have you been bothered by any of the following problems? Question Answer Date of Assessment Author Little interest or pleasure in doing things Not at all 05/05/2025 10:11 AM EDT Ara Amador Feeling down, depressed, or hopeless Not at all 05/05/2025 10:11 AM EDT Ara Amador Patient Health Questionnaire -2 Score 0 05/05/2025 10:11 AM EDT Ara Amador * Question Answer Date of Assessment Author Trouble falling or staying asleep, or sleeping too much Not at all 05/05/2025 10:11 AM EDT Ara Mijares Feeling tired or having chris le energy Not at all 05/05/2025 10:11 AM EDT Ara Amador Poor appetite or overeating Not at all 05/05/2025 10 :11 AM EDT Ara Amador Feeling bad about yourself - or that you are a failure or have let yourself or your family down Not at all 05/05/2025 10:11 AM MADISONT Ara Amador Trouble concentrating on things, such as reading the newspaper or watching television Not at all 05/05/2025 10:11 AM MADISONT Ara Amador Moving or speaking so slowly that other people could have noticed? Or the opposite - being so fidgety or restless that you have been moving around a lot more than usual. Not at all 05/05/2025 10:11 AM EDT Ara Caruso Thoughts that you would be better off or hurting yourself in some way Not at all 05/05/2025 10:11 AM MADISONT Luis Alfredo Amador Patient Health Questionnaire -9 Score 0 05/05/2025 10:11 AM MADISONT Ara Amador * If you checked off any problems on this questionnaire so far, Question Answer Date of Assessment Author How difficult have these problems made it for you to do your work, take care of things at home, or get along with other people? Not difficult at all 05/05/2025 10:11 AM Luis Alfredo Guzmán documented as of this encounter Miscellaneous Notes * Progress Notes - Yoselyn Turner, FRAME STYLIST - 05/05/2025 10:20 AM EDT Samara Richardson is a 54 y.o. female who presents today as a new referral from Taryn Verma for evaluation of possible left upper pulmonary vein stenosis. The patient reports episodes of chest pain described as constricting sensation lasting hours accompanied by cold clammy sensation that occur both at rest and with exertion. Pt has been seen in the EDwith noted negative troponin in the setting of on-going chest pain for hours. Pt reports chest painrelieved with NTG SL. TTE and holter monitor were unremarkable. Coronary CTA showed minimal LM, distal RCA disease and possible left upper pulmonary vein stenosis. Coronary angiogram in 2006 at negative for obstructive CAD. Cardiac Symptoms: chest constriction with cold sweats Cardiac Surgeries None Cardiac Diagnostic Testing TTE 03/02/2025 @ [facility] LVEF 67%, mild conc LVH Mild MR Mild TR 02/23/2025 CT coronary artery angio LUPV narrowing at LA Minimal to mild 2 vessel CAD Distal LM 10-20% stenosis Distal RCA 30% stenosis 01/09/2025 12/14/2024 48 HR holter monitor Rare PVCs and PACs No pauses or heart block Average HR 86 Max HR 144 min HR 46 2006 coronary angiogram @ [facility] -small vessels but no CAD Review of symptoms Constitutional: Negative for decreased appetite and weight gain. Cardiovascular:See HPI Respiratory: Negative for cough, shortness of breath and sleep disturbances due to breathing. Gastrointestinal: Negative for bloating. 14 Point ROS reviewed and is otherwise negative except as per HPI. Other Past Medical History Past Medical History[1] Other Surgical History Surgical History[2] Family History family history includes Breast cancer in her mother. Social History reports that she has been smoking cigarettes. She has never used smokeless tobacco. She reports that she does not drink alcohol and does not use drugs. Medications Current Medications[3] Physical Exam Constitutional: Appearance: Normal appearance. Cardiovascular: Rate and Rhythm: Normal rate and regular rhythm. Heart sounds: Normal heart sounds. Pulmonary: Effort: Pulmonary effort is normal. Breath sounds: Normal breath sounds. Abdominal: General: Abdomen is flat. Palpations: Abdomen is soft. Skin: General: Skin is warm and dry. Neurological: General: No focal deficit present. Mental Status: She is alert and oriented to person, place, and time. Psychiatric: Mood and Affect: Mood normal. Behavior: Behavior normal. Visit Vitals BP 124/88 Pulse 85 Ht 1.549 m (5' 1 ) Wt 93.2 kg (205 lb 7.5 oz) SpO2 97% BMI 38.82 kg/m?? Labs Lab Results Component Value Date HGB 12.3 09/12/2024 HCT 35.6 09/12/2024 PLT 219 09/12/2024 ALT 8 (L) 09/12/2024 AST 13 09/12/2024 NA 137 09/12/2024 K 3.6 09/12/2024 CREATININE 0.93 09/12/2024 BUN 16 09/12/2024 CO2 21 (L) 09/12/2024 TSH 0.23 (L) 09/12/2024 INR 1.1 10/25/2023 Assessment and Plan Problem List[4] 54F referred for evaluation of possible narrowing of LUPV at LA. CT images reviewed by Dr. Mosqueda and Dr. Bishop with opinion of no evidence of LUPV stenosis. The angle that the LUPV insert makes it appear stenotic but the flow is good. Additionally LUPV would not cause pt's symptoms. Minimal CADseen on CTA. Could consider other causes such as esophageal spasm or coronary artery spasm. -no evidence of LUPV on further review of CTA by Dr. Mosqueda and Dr. Bishop. -recommend complete tobacco cessation and also cessation of nicotine replacement therapy which can also cause coronary artery spasm -return to general cardiology Dr. Ruba Deshpande in [place] for further evaluation -no follow up needed in [facility] clinic at time. A total time of 45 minutes was spent by MD and PRIYA addressing the current illness, reviewing records (prior imaging, lab work, etc), and formulating a plan. The patient is agreeable to the plan and all pertinent questions were answered. Patient was seen and assessed in collaboration with Dr. Mosqueda who agrees with the above plan ofcare. Yoselyn Turner, FRAME STYLIST [1] Past Medical History: Diagnosis Date Acid reflux Anemia Encounter for blood transfusion 1999 Hepatitis Hypertension Stroke (CMS/HCC) [2] Past Surgical History: Procedure Laterality Date BREAST LUMPECTOMY Left lumpectomy from [facility] SECTION, LOW TRANSVERSE N/A Section from [facility] GALLBLADDER SURGERY N/A Gallbladder Surgery from [facility] HERNIA REPAIR N/A Hernia Repair from [facility] KNEE SURGERY Left 2017 Knee Surgery from [facility] WISDOM TOOTH EXTRACTION N/A Oral Surgery Tooth Extraction Alcolu Tooth from [facility] WRIST SURGERY 2017 [3] Current Outpatient Medications Medication Sig Dispense Refill albuterol (Ventolin HFA) 108 (90 Base) MCG/ACT inhaler Inhale 2 puffs. amLODIPine (Norvasc) 5 MG tablet Take 1 tablet by mouth 1 time each day. aspirin 81 MG EC tablet Take 1 tablet by mouth 1 time each day. busPIRone (Buspar) 10 MG tablet Take 1 tablet by mouth twice a day. Emgality 120 MG/ML injection lisinopril-hydroCHLOROthiazide 20-25 MG tablet Take 1 tablet by mouth 1 time each day. methocarbamol (Robaxin) 750 MG tablet Take 1 tablet by mouth as needed. metoprolol succinate XL (Toprol-XL) 50 MG 24 hr tablet Take 1 tablet by mouth 1 time each day. Rimegepant Sulfate (Nurtec) 75 MG orally disintegrating tablet Place 1 tablet under the tongue. rOPINIRole (Requip) 0.5 MG tablet Take 1 tablet by mouth 3 times a day. venlafaxine XR (Effexor-XR) 37.5 MG 24 hr capsule Take 1 capsule by mouth 1 time each day. Zavzpret 10 MG/ACT solution SPRAY 1 TIME IN EACH NOSTRIL 1 TIME EACH DAY NEEDED FOR HEADACHE hydrOXYzine HCl (Atarax) 25 MG tablet Take 1 tablet by mouth every 4 hours as needed. (Patient not taking: Reported on 05/05/2025) nicotine polacrilex (Nicorette) 4 MG gum CHEW 1 PIECE OF GUM EVERY 2 HOURS DIRECTED SUMAtriptan (Imitrex) 100 MG tablet TAKE 1 TABLET AT START OF HEADACHE. MAY TAKE ANOTHER TABLET IN 2 HOURS IF NEEDED. DO NOT TAKE MORE THAN 2 TABLETS IN 24 HOURS. (Patient not taking: Reported on 05/05/2025) tiZANidine (Zanaflex) 4 MG tablet Take 1 tablet by mouth every 6 hours as needed. (Patient not taking: Reported on 05/05/2025) ubrogepant (Ubrelvy) 50 MG tablet Take 1 tablet by mouth as needed. (Patient not taking: Reported on 05/05/2025) No current facility-administered medications for this visit. [4] Patient Active Problem List Diagnosis Mild CAD Precordial chest pain Shortness of breath Obesity (BMI 35.0-39.9 without comorbidity) documented in this encounter Plan of Treatment Not on file documented as of this encounter Procedures Procedure Name Priority Date/Time Associated Diagnosis Comments ECG ADULT Routine 05/05/2025 10:16 AM EDT Mild CAD documented in this encounter Results * ECG Adult (Now - Performed in your clinic) (05/05/2025 10:16 AM EDT) EKG DIAGNOSIS CLASS Normal MUSE ECG Ventricular Rate 95 BPM MUSE ECG Atrial Rate 95 BPM MUSE ECG MT Interval 126 ms MUSE ECG QRSD Interval 82 ms MUSE ECG QT Interval 366 ms MUSE ECG QTC Interval 459 ms MUSE ECG P [place] 65 degrees MUSE ECG R [place] 46 degrees MUSE ECG T Wave [place] 32 degrees MUSE ECG Diagnosis Normal sinus rhythm MUSE ECG Diagnosis MUSE ECG Diagnosis MUSE ECG Diagnosis Confirmed by Henrique Figueroa ([id number]) on 05/05/2025 11:36:29 AM MUSE ECG 05/05/2025 10:1 6 AM EDT 05/05/2025 11:36 AM EDT us Gregorio Mosqueda MD ECG ORDERABLES Final Resu lt MUSE ECG documented in this encounter Visit Diagnoses Diagnosis Mild CAD- Primary documented in this encounter Additional Health Concerns Assessment Noted Time PHQ-9 Depression Total Score: 0 05/05/20 10:11 AM EDT A fall risk assessment has been complete d for the patient 05/05/2025 10:11 AM EDT A Body Mass Index follow-up plan has been documented for the patient 05/05/2025 4:05 PM EDT documented as of this encounter Care Teams Quality Assurance Technician Relationship Specialty Start Date End Date Mindy Brandon PA [address] [place] [address] PCP - General 05/05/25 documented as of this encounter
[2025-05-16 22:21] VITALS: BP 131/88; PULSE 86; RESP 16; TEMP 36.6; O2SAT 99; BMI 36.9
--- OUTSIDE RECORDS SUMMARY | 2025-05-16 22:28 | XMS_ITS | Encounter Summary ---
Author Organization [employer] ([place], [place], [place], [place]) Address [address] [place] [address] Care Team Providers Care Pheresis Nurse Name Role Phone Lloyd Roberts MD Primary Care Provider [phone] Mindy Brandon Primary Care Provider Encounter Details Date Type Department Care Team (Late st Contact Info) Description 03/01/2019 Transcribed Document [facility] [place] [facility] [place] [address] ProviderAlexander MD [address] [place] [address] Social History Tobacco Use Types Packs/Day [...] EDT Performed On: 03/01/2019 12:25 EDT by Leilani Garland, cogeneration operator Triage Across the Room Triage Date/Time : 03/01/2019 12:25 EDT Chief Complaint : pt c/o LLQ pain starting last night. pt denies urinary symptoms. -n/-v Leilani Garland Rn - 03/01/2019 12:25 EDT DCP GENERIC CODE Tracking Acuity : 3 - Urgent Tracking Group : [facility] ED Leilani Garland Rn - 03/01/2019 12:25 [...] PNED ; Probability: 0 ; Diagnosis Code: [id number] ED Height and Weight Height Source : Stated Height Entry Format : [place] Height, Feet : 5 ft(Converted to: 152 cm, 60 Inch) Height, Inches : 0 Inch(Converted to: 0 ft 0 Inch, 0.00 cm) Clinical Height : 152.4 cm Weight Source, ED : Critical estimated dosing weight Weight Entry Format : [place] Weight, Pounds : 190 lb Clinical Dosing Weight : 86.36 kg Body Surface Area (BSA) : 1.83 m2 Body Mass Index : 37.2 kg/m2 (HI) [place] Body Weight (IBW) : 45.16 kg Leilani [...] the text rendition version of the form. documented in this encounter Plan of Treatment Not on file documented as of this encounter Visit Diagnoses Not on filedocumented in this encounter Care Teams Pheresis Nurse Relationship Specialty Start Date End Date Lloyd Roberts MD [address] [place] [address] PCP - General Family Medicine 09/26/22 03/28/25 Mindy Brandon PA [address] [place] [phone] PCP - General Physician Mold Swabber 03/29/25 documented as of this encounter
--- OUTSIDE RECORDS SUMMARY | 2025-05-16 22:28 | XMS_ITS | Encounter Summary ---
Author Organization [employer] ([place], [place], [place], [place]) Address [address] [place] [address] Care Team Providers Care Domestic Housekeeper Name Role Phone Lloyd Roberts MD Primary Care Provider [phone] Mindy Brandon Primary Care Provider Encounter Details Date Type Department Care Team (Late st Contact Info) Description 03/01/2019 Transcribed Document [facility] [place] Family Medicine [facility] [place] [address] ProviderAlexander MD [address] [place] [address] Social History Tobacco Use Types Packs/Day [...] On: 03/01/2019 14:47 EDT by Jaja Villalba, cane weigher helper Process Patient Disposition : Discharge Personal Belongings [...] Jaja Villalba, RN - 03/01/2019 14:47 EDT Electronically signed by Brien, [facility] Conversion Probation Agent Cerner at 01/15/2023 8:16 AM CDT documented in this encounter Plan of Treatment Not on file documented as of this encounter Visit Diagnoses Not on filedocumented in this encounter Care Teams Domestic Housekeeper Relationship Specialty Start Date End Date Lloyd Roberts MD [address] [place] [address] PCP - General Family Medicine 09/26/22 03/28/25 Mindy Brandon PA [address] [place] [phone] PCP - General Physician Sexual Assault Counselor 03/29/25 documented as of this encounter
--- OUTSIDE RECORDS SUMMARY | 2025-05-16 22:28 | XMS_ITS | Referral Summary ---
Author Organization [employer] ([place], [place], [place]) Address [address] [place] [address] Care Team Providers Care Lead Military Analyst Name Role Phone Mindy Brandon Primary Care Provider Encounters Date Type Department Care Team Description 04/04/2025 11:59 PM EDT Anesthesia Event Surgery Department [address] [place] [address] Ginna Cardona CRNA 03/23/2025 8:15 AM EDT Office Visit [address] [address] Сергей Sandoval MD Complex tear of lateral meniscus of left knee, sequela (Primary Dx); Recurrent left knee instability; Acute lateral meniscus tear of left knee; Pre-op testing 03/16/2025 2:15 PM EDT Office Visit [address] [address] Lizz Hoang PA-C Complex tear of lateral meniscus of left knee, sequela (Primary Dx) 03/14/2025 Travel 03/14/2025 2:12 PM EDT - 03/14/2025 11:59 PM EDT Hospital Encounter [facility] MRI [address] [place] [address] Lizz Hoang PA-C Recurrent left knee instability Discharge Disposition: Home or Self Care 03/09/2025 Outside Orders [facility] General Surgery [address] [place] [address] Mindy Brandon PA Blood in stool (Primary Dx) 02/15/2025 2:10 PM EDT Ancillary Procedure [facility] Orthopedics [address] [address] Lizz Hoang PA-C 02/15/2025 2:00 PM EDT Office Visit [facility] [address] [address] Lizz Hoang PA-C Recurrent left knee instability [...] 1 TABLET 1 TIME EACH DAY Active lisinopriL-hydr oCHLOROthiazide (ZESTORETIC, PRINZIDE) 20-25 mg per tablet TAKE 1 TABLET 1 TIME EACH DAY Active rOPINIRole (REQUIP) 0.25 MG tablet TAKE 1 TABLET 1 TIME EACH DAY AT BEDTIME Active Emgality Pen 120 mg/mL pen Inject 1 mL (120 mg total) under the skin every 30 (thirty) days. 02/08/2025 Active Zavzpret 10 mg/actuation spry SPRAY 1 TIME IN EACH NOSTRIL 1 TIME EACH DAY NEEDED FOR HEADACHE 02/08/2025 Active Nurtec ODT 75 mg TbDL TAKE 1 TABLET 1 TIME EACH DAY NEEDED FOR HEADACHE 02/08/2025 Active nicotine polacrilex (NICORETTE) 4 MG gum Chew 1 each (4 mg total) as needed for smoking cessation. Active busPIRone (BUSPAR) 10 MG tablet Take 1 tablet (10 mg total) by mouth 2 (two) times daily. 12/27/2024 Active hydrOXYzine (ATARAX) 25 MG tablet Take 1 tablet (25 mg total) by mouth. Active venlafaxine XR (EFFEXOR-XR) 37.5 MG 24 hr capsule Take 1 capsule (37.5 mg total) by mouth daily with breakfast. Active albuterol 90 mcg/actuation inhaler Inhale by mouth every 6 (six) hours as needed for wheezing. Active Active Problems Problem Noted Date Diagnosed [...] Date Josue rded Speak language other than Australian at home Not on file 10/16/2023 Want [...] obvious evidence of acute osseous abnormality. Lizz LY-Oh [facility] VLADIMIRAdenike MOREJON Final Result from Last 3 Months Insurance AETNA [facility] Care Teams Lead Military Analyst Relationship Specialty Start Date End Date Mindy Brandon PA [address] [place] [phone] PCP - General Physician Hardware Installer 03/29/25
--- OUTSIDE RECORDS SUMMARY | 2025-05-16 22:28 | XMS_ITS | Patient Health Record ---
Author Organization [facility] Address [address] [facility] [place] [address] Care Team Providers Care Tower Hoist Operator Name Role Phone Genia Lynn Primary Care Provider [phone] Allergies Allergen (clinical drug ingredient) Drug/Non Drug [...] Status Risk Notes Problem Chronic hepatitis C (479503581) Chronic viral hepatitis C (B18.2) Active confirmed Problem Alcohol dependence (64507635) Uncomplicated alcohol dependence (F10.20) Active confirmed Problem Opioid dependence (44954882) Uncomplicated opioid dependence (F11.20) Active confirmed Problem Substance use disorder (4892091807) Substance use disorder (F19.90) Active confirmed Plan Of Treatment No Information Insurance Providers Payer Name Payer Address Payer Phone Subscriber Number Group Number Insured Name Patient Relationship to Insured Coverage Start Date Coverage End Date AETNA [facility] [address] [place], [place] [id number] Debra Samara Self - patient is the insured 3 [...]
--- OUTSIDE RECORDS SUMMARY | 2025-05-16 22:28 | XMS_ITS | Encounter Summary ---
Author Organization [employer] ([place], [place], [place], [place]) Address [address] [place] [address] Care Team Providers Care Capacitor Pack Press Operator Name Role Phone Lloyd [place] MD Primary Care Provider [phone] Mindy Brandon Primary Care Provider Encounter Details Date Type Department Care Team (Late st Contact Info) Description 03/01/2019 Transcribed Document [facility] [place] [facility] [place] [address] ProviderAlexander MD [address] [place] [address] Social History Tobacco Use Types Packs/Day [...] On: 03/01/2019 14:04 EDT by Jaja Villalba, CHARGE AUDITOR Quick Look Assessment Level of Consciousness : Alert, Awake Affect/Behavior : Appropriate Orientation : Oriented x 4 Skin Temperature : Warm Skin Description : Dry Jaja Villalba RN - 03/01/2019 14:04 EDT ED General-Functional Assess Information Obtained From : Patient Communication Barrier : None Primary Language : Albanian Any Spiritual/Cultural Needs or Requests : No Currently in Unsafe Situation : No Jaja Villalba RN - 03/01/2019 14:04 EDT Social Habits Smoking Status : Former smoker, quit more than 30 days ago Smokeless Tobacco Status : Never Desires Tobacco Cessation Calc : 0 Jaja Villalba RN - 03/01/2019 14:04 EDT Social History (As Of: 03/01/2019 14:06:41 EDT) Tobacco: Former smoker, quit more than 30 days ago Smoking Status. (Last Updated: 03/01/2019 13:20:05 EDT by PIERCE PAULINO PA-C) Home/Environment: Living situation: Homeless/[facility]. (Last Updated: 03/01/2019 13:19:47 EDT by PIERCE PAULINO PA-C) Gastrointestinal ED Gastrointestinal Assessment WDL : WDL with exceptions Gastrointestinal Symptoms : Abdominal pain Jaja Villalba RN - 03/01/2019 14:04 EDT Electronically signed by Nela Tesfaye Conversion Physician Credentialing Specialist Cerner at 01/15/2023 8:14 AM CDT documented in this encounter Plan of Treatment Not on file documented as of this encounter Visit Diagnoses Not on filedocumented in this encounter Care Teams Capacitor Pack Press Operator Relationship Specialty Start Date End Date Lloyd Roberts MD [address] [place] [address] PCP - General Family Medicine 09/26/22 03/28/25 Mindy Brandon PA [address] [place] [phone] PCP - General Physician Wool Classer 03/29/25 documented as of this encounter
--- OUTSIDE RECORDS SUMMARY | 2025-05-16 22:28 | XMS_ITS | Clinical Summary ---
Author Organization Healthcare Address [address] [place] [address] Care Team Providers Care Frozen Food Selector Name Role Phone Aleksandr Mindy LY Primary Care Provider [phone] Allergies Active Allergy Reactions Criticality Noted Date Comments Ciprofloxacin Hives Medium 06/22/2017 Tape/Bandaid Adhesive Rash Low 01/16/2025 Vancomycin Hives,Unknown - Amy ent states they do not know rxn details Medium 12/09/2013 Medications amLODIPine (Norvasc) 5 MG tablet Take 1 tablet by mouth 1 time each day. Active aspirin 81 MG EC tablet Take 1 tablet by mouth 1 time each day. Active busPIRone (Buspar) 10 MG tablet Take 1 tablet by mouth twice a day. 5 Active hydrOXYzine HCl (Atarax) 25 MG tablet Take 1 tablet by mouth every 4 hours as needed. Active lisinopril-hydroCHL OROthiazide 20-25 MG tablet Take 1 tablet by mouth 1 time each day. Active methocarbamol (Robaxin) 750 MG tablet Take 1 tablet by mouth as needed. 5 Active metoprolol succinate XL (Toprol-XL) 50 MG 24 hr tablet Take 1 tablet by mouth 1 time each day. Active albuterol (Ventolin HFA) 108 (90 Base) MCG/ACT inhaler Inhale 2 puffs. Active Rimegepant Sulfate (Nurtec) 75 MG orally disintegrating tablet Place 1 tablet under the tongue. Active rOPINIRole (Requip) 0.5 MG tablet Take 1 tablet by mouth 3 times a day. Active tiZANidine (Zanaflex) 4 MG tablet Take 1 tablet by mouth every 6 hours as needed. Active ubrogepant (Ubrelvy) 50 MG tablet Take 1 tablet by mouth as needed. Active venlafaxine XR (Effexor-XR) 37.5 MG 24 hr capsule Take 1 capsule by mouth 1 time each day. Active SUMAtriptan (Imitrex) 100 MG tablet TAKE 1 TABLET AT START OF HEADACHE. MAY TAKE ANOTHER TABLET IN 2 HOURS IF NEEDED. DO NOT TAKE MORE THAN 2 TABLETS IN 24 HOURS. Active Emgality 120 MG/ML injection Active nicotine polacrilex (Nicorette) 4 MG gum CHEW 1 PIECE OF GUM EVERY 2 HOURS DIRECTED Active Zavzpret 10 MG/ACT solution SPRAY 1 TIME IN EACH NOSTRIL 1 TIME EACH DAY NEEDED FOR HEADACHE Active Active Problems Problem Noted Date Diagnosed Date Obesity (BMI 35.0-39.9 without comorbidity) 04/2025 Mild CAD 02/27/2025 Precordial chest pain 12/13/2024 Shortness of breath 12/13/2024 Encounters Date Type Department Care Team Description 05/05/2025 10:20 AM EDT Office Visit [facility] [place] [address] [facility] [place] [address] Gregorio Mosqueda MD Mild CAD (Primary Dx) 05/05/2025 Travel 02/23/2025 Orders Only External Location [address] [place] [address] Arabella Davey APRN from Last 3 Months Immunizations Immunization Administration Dates Next Due Hep A, Adult 10/07/2018 TD (adult), 2 Lf tetanus tox oid, preservative free, adsorbed 12/25/1997 Tdap 10/25/2023,09/30/2012 Family History Medical History Relation Name Comments Breast cancer Mother Relation Name Status Comments Mother Social History Tobacco Use Types Packs/Day Years [...] Pulse 85 05/05/2025 10:09 AM EDT Temperature 36.8 C (98.3 F) 09/13/2024 12:11 AM EST Respiratory Rate 16 09/13/2024 12:11 AM EST Oxygen Saturation 97% 05/05/2025 10:09 AM EDT Inhaled Oxygen Concentration - - Weight 93.2 kg (205 lb 7.5 oz) 05/05/2025 10:09 AM EDT Height 154.9 cm (5' 1 ) 05/05/2025 10:09 AM EDT Body Mass Index 38.82 05/05/2025 10:09 AM EDT Plan of Treatment Health Maintenance Due Date Last Done Comments [facility]-/Child/Adol SDOH Screenings 1970 [facility]- SDOH Screenings 1987 [facility]-Adult SDOH Screenings 1987 [facility]-Hepatitis B Vaccines (1 of 3 - 19+ 3-dose series) 1988 [facility]-Pneumococcal Vaccine: 50 + Years (1 of 2 - PCV) 1988 [facility]-Pap Smear 1990 [facility]-Cervical Cancer Screening 1999 [facility]-HPV/Cotest 1999 CT Colonography 2014 Colonoscopy 2014 FIT-DNA 2014 FIT 2014 FOBT 2014 Sigmoidoscopy 2014 [facility]-Colorectal Cancer Screening 2014 [facility]-Breast Cancer Screening 2019 [facility]-Zoster Vaccines (1 of 2) 2019 IHB-QNDWU-10 Vaccine ( - 2023- season) 2024 [facility]-Influenza Vaccine (#1) 2025 [facility]-Depression Screening 05/05/2026 025, 05/05/2025 [facility]-DTaP,Tdap,and Td Vaccine s (3 - Td or Tdap) 10/25/2033 10/25/2023, 09/30/2012, 12/25/1997 [facility]-Hepatitis A Vaccines Aged Out 10/07/2018 No longer eligible based on patient's age to complete this topic [facility]-HIV Screening Completed 10/25/2023 [facility]-Hepatitis C Screening Completed 10/25/2023 [facility]-Obesity Intervention Completed 05/05/2025 HPV Vaccines Aged Out No longer eligi ble based on patient's age to complete this topic [facility]-HIB Vaccines Aged Out No longer e ligible based on patient's age to complete this topic [facility]-IPV Vaccines Aged Out No longer e ligible based on patient's age to complete this topic [facility]-Rotavirus Vaccines Aged Out No lo nger eligible based on patient's age to complete this topic Procedures Procedure Name Priority Date/Time Associated Diagnosis Comments ECG ADULT Routine 05/05/2025 10:16 AM EDT Mild CAD CT OUTSIDE IMAGES 02/23/2025 11: 17 AM EDT HEPATITIS C ANTIBODY - ED W/REFLEX TO HCV QUANT PCR STAT 10/25/2023 4:16 PM EST ED HIV 1/2 ANTIBODY/ANTIGEN SCREEN WITH REFLEX TO HIV I/II DIFFERENTIATION STAT 10/25/2023 4:16 PM EST from Last 3 Months or Most Recently Relevant to Health Maintenance Results * ECG Adult (Now - Performed in your clinic) (05/05/2025 10:16 AM EDT) EKG DIAGNOSIS CLASS Normal MUSE ECG Ventricular Rate 95 BPM MUSE ECG Atrial Rate 95 BPM MUSE ECG VA Interval 126 ms MUSE ECG QRSD Interval 82 ms MUSE ECG QT Interval 366 ms MUSE ECG QTC Interval 459 ms MUSE ECG P [place] 65 degrees MUSE ECG R [place] 46 degrees MUSE ECG T Wave [place] 32 degrees MUSE ECG Diagnosis Normal sinus rhythm MUSE ECG Diagnosis MUSE ECG Diagnosis MUSE ECG Diagnosis Confirmed by Henrique Figueroa ([id number]) on 05/05/2025 11:36:29 AM MUSE ECG 05/05/2025 10:1 6 AM EDT 05/05/2025 11:36 AM EDT Gregorio Mosqueda MD ECG ORDERABLES Final Resu lt MUSE ECG * CT OUTSIDE IMAGES (02/23/2025 11:17 AM EDT) Anatomical Region Laterality Modality Computed Tomogra phy 02/23/2025 11:1 7 AM EDT Result [facility] Arabella Davey APRN IMG CT PROCEDURES Final Result * ED HIV 1/2 Antibody/Antigen Screen w/Reflex to HIV 1/2 Differentiation (10/25/2023 4:16 PM EST) HIV 1 & 2 Antibody/Antigen Screen Non Reactive Non Reactive 10/25/2023 5:18 PM EST [facility] Comment:Screening for HIV 1 & 2 antibodies, and P24 antigen is NONREACTIVE. No confirmatory testing is required. Blood Venous blood specimen / Unknown Venipuncture / Unknown 10/25/2023 4:16 PM EST 10/25/2023 4:37 PM EST Result [facility] Morgan Guido MD LAB BLOOD ORDERABLES Final R esult Performing Organization Address City/Va Hospital/ZIP Co de Phone Number [facility] [address] [place] [address] * (ABNORMAL) Hepatitis C Antibody - ED (10/25/2023 4:16 PM EST) Hepatitis C Antibody Positive(A ) Negative 10/25/2023 5:23 PM EST [facility] Blood Venous blood specimen / Unknown Venipuncture / Unknown 10/25/2023 4:16 PM EST 10/25/2023 4:37 PM EST Morgan Guido MD LAB BLOOD ORDERABLES Final R esult [facility] [address] [place] [address] from Last 3 Months or Most Recently Relevant to Health Maintenance Insurance [employer] [facility] MEDICAID Care Teams Frozen Food Selector Relationship Specialty Start Date End Date Mindy Brandon PA [address] [place] [address] PCP - General 05/05/25
--- OUTSIDE RECORDS SUMMARY | 2025-05-16 22:28 | XMS_ITS | Encounter Summary ---
Author Organization Healthcare Address [address] [place] [address] Care Team Providers Care Management Associate Name Role Phone Mindy Brandon Primary Care Provider [phone] Encounter Details Date Type Department Care Team (Latest Contact Info) Description 05/05/2025 Travel Social History Tobacco Use Types Packs/Day Years Used Date Smoking Tobacco: Every Day Cigarettes Smokeless Tobacco: Never Alcohol Use Standard Drinks/Week Comments No 0 [...] on file documented as of this encounter Functional Status * Over the [...] down Not at all 05/05/2025 10:11 AM EDT Ara Amador Trouble concentrating on things, such as reading the newspaper or watching television Not at all 05/05/2025 10:11 AM EDT Ara Amador Moving or speaking so slowly that other people could have noticed? Or the opposite - being so fidgety or restless that you have been moving around a lot more than usual. Not at all 05/05/2025 10:11 AM EDT Ara Caruso Thoughts that you would be better off or hurting yourself in some way Not at all 05/05/2025 10:11 AM EDT Luis Alfredo Amador Patient Health Questionnaire -9 Score 0 05/05/2025 10:11 AM EDT Ara Amador * If you checked off any problems on this questionnaire so far, Question Answer Date of Assessment Author How difficult have these problems made it for you to do your work, take care of things at home, or get along with other people? Not difficult at all 05/05/2025 10:11 AM EDT Luis Alfredo Amador documented as of this encounter Plan of Treatment Not on file documented as of this encounter Visit Diagnoses Not on filedocumented in this encounter Additional Health Concerns Assessment Noted Time PHQ-9 Depression Total Score: 0 05/05/20 25 10:11 AM EDT A fall risk assessment has been complete d for the patient 05/05/2025 10:11 AM EDT A Body Mass Index follow-up plan has been documented for the patient 05/05/2025 4:05 PM EDT documented as of this encounter Care Teams Management Associate Relationship Specialty Start Date End Date Mindy Brandon PA [address] [place] [address] PCP - General 05/05/25 documented as of this encounter
--- OUTSIDE RECORDS SUMMARY | 2025-05-16 22:28 | XMS_ITS | Encounter Summary ---
Author Organization [facility] Address [address] [place] [address] Care Team Providers Care Clinical Business Analyst Name Role Phone Mindy Brandon Primary Care Provider [phone] Reason for Visit * Reason Onset Date Comments BOBBY-PLEASE CALL 03/08/2025 Encounter Details Date Type Department Care Team (Late st Contact Info) Description 03/08/2025 Telephone [facility] [address] [place] [address] Mima Calderon MD [address] [place] [address] BOBBY-PLEASE CALL Social History Tobacco [...] to patient: Self Best call back number: [phone] Patient is needing: PLEASE HAVE THE NURSE BOBBY CALL THE PATIENT. SHE HAS SOME QUESTIONS ABOUT UPCOMING APPOINTMENTS FROM A REFERRAL. documented in this encounter Plan of Treatment Upcoming Encounters Date Type Department Care Team (Late st Contact Info) Description 05/31/2025 3:00 PM EDT Office Visit [facility] [address] [place] [phone] Mima Calderon MD [address] [place] [address] documented as of this encounter Visit Diagnoses Not on filedocumented in this encounter Care Teams Clinical Business Analyst Relationship Specialty Start Date End Date Mindy Brandon PA [address] [facility] [address] [place] [address] PCP - General Physician Pvc Loader 12/02/24 documented as of this encounter
--- OUTSIDE RECORDS SUMMARY | 2025-05-16 22:28 | XMS_ITS | Encounter Summary ---
Author Organization [facility] Address [address] [place] [address] Care Team Providers Care Graphic Arts Instructor Name Role Phone Mindy Brandon Primary Care Provider [phone] Encounter Details Date Type Department Care Team (Late st Contact Info) Description 03/23/2025 Telephone [facility] [address] [place] [address] Mima Calderon MD [address] [place], [place] [id number] Social History Tobacco Use Types Packs/Day Years [...] SCANNED INTO PT'S CHART AND FAXED TO [facility]. THANK YOU. * Telephone Encounter - [...] 10:[address] EDITH DAVIDSON OF [facility] IS REQUESTING CARDIAC CLEARANCE FOR A LEFT KNEE SCOPE SCHEDULED ON 04/05/2025. CARDIAC CLEARANCE REQUEST FORM HAS BEEN SCANNED INTO PT'S CHART. THANK YOU. documented in this encounter Plan of Treatment Upcoming Encounters Date Type Department Care Team (Late st Contact Info) Description 05/31/2025 3:00 PM EDT Office Visit [facility] [address] [place] [address] Mima Calderon MD [address] [place] [address] documented as of this encounter Visit Diagnoses Not on filedocumented in this encounter Care Teams Graphic Arts Instructor Relationship Specialty Start Date End Date Mindy Brandon PA [address] [facility] [address] [place] [address] PCP - General Physician Other Spatial Scientist 12/02/24 documented as of this encounter
--- OUTSIDE RECORDS SUMMARY | 2025-05-16 22:28 | XMS_ITS | Encounter Summary ---
Author Organization [employer] ([place], [place], [place], [place]) Address [address] [place] [address] Care Team Providers Care Relay Technician Name Role Phone Lloyd Roberts MD Primary Care Provider [phone] Mindy Brandon Primary Care Provider Encounter Details Date Type Department Care Team (Late st Contact Info) Description 03/01/2019 Transcribed Document [facility] Family Medicine [facility] [place] [address] ProviderAlexander MD [address] [place] [address] Social History Tobacco Use Types Packs/Day [...] on filedocumented in this encounter Care Teams Relay Technician Relationship Specialty Start Date End Date Lloyd Roberts MD [address] [place] [address] PCP - General Family Medicine 09/26/22 03/28/25 Mindy Brandon PA [address] [place] [phone] PCP - General Physician Head Of Mathematics 03/29/25 documented as of this encounter
--- OUTSIDE RECORDS SUMMARY | 2025-05-16 22:28 | XMS_ITS | Encounter Summary ---
Author Organization [employer] ([place], [place], [place], [place]) Address [address] [place] [address] Care Team Providers Care Sheet Metal Worker Helper Name Role Phone Lloyd Roberts MD Primary Care Provider [phone] Mindy Brandon Primary Care Provider Encounter Details Date Type Department Care Team (Late st Contact Info) Description 03/01/2019 Transcribed Document [facility] [place] [facility] [place] [address] ProviderAlexander MD [address] [place] [address] Social History Tobacco Use Types Packs/Day [...] Alexander ProviderMD - 03/01/2019 2:39 PM CDT [facility] [place] [address] SAMARA LEAL :1970 Visit Time:03/01/2019 Your [...] computer, smartphone, or tablet. Just go to [employer] to get started. Questions? Call . You [...] Within 5 to 7 days Where: [address] [facility] [address] [facility] (1) Follow Up with KETAN ESCOBAR When [...] range between ( 0.0 and 7.0 ) [place] #: 0.44 K/uL -- Normal range between ( 0.16 and 1.00 ) Eos #: 0.05 x10(3)/uL -- Normal range between ( 0.00 and 0.80 ) [place] %: 6.6 % -- Normal range between [...] ) Urine Bilirubin Dipstick: Negative Urine Specific [place]: 1.011 -- Normal range between ( 1.005 [...] lot of fat or sugar. ??? Take jwbb-jrz-tonniwt and prescription medicines only as told by [...] 09/14/2006 Document Revised: 04/10/2017 Document Reviewed: 11/07/2016 [employer] Patient Education ?? 2019 [employer] Abdominal Pain, Adult Abdominal pain can [...] Follow these instructions at home: ??? Take lzmj-tvf-jgbjlqv and prescription medicines only as told by [...] 06/24/2006 Document Revised: 04/03/2017 Document Reviewed: 02/25/2017 [employer] Patient Education ?? 2019 [employer] Emergency Awareness and Preventative Care STROKE [...] Assistance with quitting is available by contacting 1-148-GGNHNOW. This is a free resource providing counseling, support, and referral. Or you may contact your personal physician. [facility] Suicide Prevention Lifeline: The National Suicide Prevention [...] was given the opportunity to ask questions. Patient/Public Utilities Sales Representative Name: Patient/Public Utilities Sales Representative Signature: Relationship to Patient: Clinician/Hospital Public Utilities Sales Representative Signature: Please Provide a Telephone Number Where You Can Be Reached: Is it Permissible To Leave a Message? Date: Electronically signed by Interface, [facility] Conversion Miller Wood Flour Cerner at 01/15/2023 7:55 AM CDT documented in this encounter Plan of Treatment Not on file documented as of this encounter Visit Diagnoses Not on filedocumented in this encounter Care Teams Sheet Metal Worker Helper Relationship Specialty Start Date End Date Lloyd Roberts MD [address] [place] [address] PCP - General Family Medicine 09/26/22 03/28/25 Mindy Brandon PA [address] [place] [address] PCP - General Physician Hyster Driver 03/29/25 documented as of this encounter
--- OUTSIDE RECORDS SUMMARY | 2025-05-16 22:28 | XMS_ITS | Encounter Summary ---
Author Organization [employer] ([place], [place], [place], [place]) Address [address] [place] [address] Care Team Providers Care Corporate Communications Intern Name Role Phone Lloyd Roberts MD Primary Care Provider [phone] Reason for Referral * CAT Scan (Routine) - Closed Specialty Diagnoses / Procedures Referred By Ovidio ling Referred To Contact Radiology Diagnoses Solitary pulmonary nodule Procedures CT chest with IV contrast Mindy Brandon PA [address] [place] [address] Phone: tel: fax: Referral ID Status Reason Start Date Expiration Date Visits Re quested Visits Authorized [id number] Closed 12/24/2023 02/22/2024 1 1 Encounter Details Date Type Department Care Team (Late st Contact Info) Description 12/24/2023 Outside Orders [facility] Central Scheduling [address] [place] [address] Mindy Brandon PA [address] [place] [phone] Solitary pulmonary nodule (Primary Dx) Social [...] Date Josue rded Speak language other than Khmer at home Not on file 10/16/2023 Want [...] nodule documented in this encounter Care Teams Corporate Communications Intern Relationship Specialty Start Date End Date Lloyd Roberts MD [address] [place] [address] PCP - General Family Medicine 09/26/22 03/28/25 documented as of this encounter
--- OUTSIDE RECORDS SUMMARY | 2025-05-16 22:28 | XMS_ITS | Clinical Summary ---
Author Organization [facility] Address [address] [place] [address] Care Team Providers Care Light Adjuster Name Role Phone Mindy Brandon Primary Care Provider [phone] Allergies Active Allergy Reactions Criticality Noted Date [...] Type Department Care Team Description 03/23/[address] [facility] [address] [place] [address] Mima Calderon MD 03/08/[address] [facility] [address] [place] [address] Mima Calderon MD [place]-PLEASE CALL 02/28/[address] [facility] [address] [place] [address] Arabella Davey APRN 02/27/2025 3:15 PM EDT Office Visit [facility] [address] [place] [address] Arabella Davey APRN Mild CAD (Primary Dx); Precordial chest pain; Shortness of breath 02/27/2025 Travel 02/23/2025 11:29 AM EDT - 02/23/2025 11:59 PM EDT Hospital Encounter [address] [place] [address] Precordial chest pain; Shortness of breath Discharge Disposition: Home or Self Care 02/23/2025 9:36 AM EDT - 02/23/2025 11:59 PM EDT Hospital Encounter [facility] [address] [facility] [address] [place] [address] Precordial chest pain; Shortness of breath Discharge Disposition: Home or Self Care 02/23/2025 Travel 02/22/2025 Telephone [facility] [address] [place] [address] Aleksandr Topmost, PA 02/21/2025 Telephone [facility] [address] [place] [address] Arabella Davey APRN from Last 3 Months [...] Description 05/31/2025 3:00 PM EDT Office Visit [facility] C[facility] [address] [place] [phone] Mima Calderon MD [address] [place] [address] Health Maintenance Due Date Last Done Comments Annual Gynecologic Pelvic an d Breast Exam 1970 Pneumococcal Vaccine 50+ (1 of 2 - PCV) 1988 MAMMOGRAM 2009 COLOGUARD 2014 COLON CANCER SCREENING 5 YEA R SIGMOIDOSCOPY [address] COLONOGRAPHY 2014 FECAL OCCULT BLOOD TEST 2014 FIT Testing (1 year) 2014 ZOSTER VACCINE (1 of 2) 2019 COVID-19 Vaccine ( - 2023- season) 2024 ANNUAL PHYSICAL 12/08/2024 INFLUENZA VACCINE 06/28/2025 COLONOSCOPY 09/28/2027 09/28/2017 COLORECTAL CANCER SCREENING 09/28/2027 TDAP/TD VACCINES (4 - Td or Tdap) 10/25/2033 10/25/2023, 09/30/2012, 12/25/1997 HEPATITIS C SCREENING Completed 10/25/2023 Procedures Procedure Name Priority Date/Time Associated Diagnosis [...] cannot be excluded Grading Scale for Plaque [place]: P1 (CAC 1-100) Mild amount of plaque [...] Using a Siemens Force scanner, a preliminary hunter trapper study was obtained, followed by coronary artery calcium protocol. 0.5 mm collimated images were obtained through the coronary arteries. Data were transferred offline for 3D reconstructions using [employer]. CONTRAST: 65 mL iopamidol ([id number]) ACQUISITION: Retrospective [...] size and caliber. Images: Arabella Davey APRN [facility] ORDERABLES Final Result * CT Angiogram Coronary (02/23/2025 11:20 AM EDT) Anatomical Region Laterality Modality Vascular, Chest N/A Computed Tomogra phy 02/24/2025 11:1 7 AM EDT Impressions 02/24/2025 11:18 AM EDT Impression: Small hiatal hernia. Please refer to CT Angiogram Coronary Cardiology Interp report for information on cardiac structures. Electronically Signed: Deo Rivera MD 02/24/2025 11:18 AM EDT Workstation ID: [id number] Narrative 02/24/2025 11:[address] ANGIOGRAM [...] MD 02/24/2025 11:18 AM EDT Workstation ID: [id number] Arabella Davey BILLIARD TABLE ASSEMBLER IMG CT ORDERABLES Final Result from Last 3 Months Insurance [facility] Care Teams Light Adjuster Relationship Specialty Start Date End Date Mindy Brandon PA [address] [facility] [address] [place] [address] PCP - General Physician Medical Front Desk Coordinator 12/02/24
--- OUTSIDE RECORDS SUMMARY | 2025-05-16 22:28 | XMS_ITS | Clinical Summary ---
Author Organization [employer] ([place], [place], [place], [place]) Address [address] [place] [address] Care Team Providers Care Job Spotter Name Role Phone Mindy Brandon Primary Care [...] Description 04/04/2025 11:59 PM EDT Anesthesia Event [facility] Surgery Department [address] [place] [address] Ginna Cardona CRNA 03/23/2025 8:15 AM EDT Office Visit [facility] Orthopedics [address] [phone] Сергей Sandoval MD Complex tear of lateral meniscus of left knee, sequela (Primary Dx); Recurrent left knee instability; Acute lateral meniscus tear of left knee; Pre-op testing 03/16/2025 2:15 PM EDT Office Visit [facility] Orthopedic[address] [phone] Lizz Hoang PA-C Complex tear of lateral meniscus of left knee, sequela (Primary Dx) 03/14/2025 2:12 PM EDT - 03/14/2025 11:59 PM EDT Hospital Encounter [facility] MRI [address] [place] [address] Lizz Hoang PA-C Recurrent left knee instability Discharge Disposition: Home or Self Care 03/14/2025 Travel 03/09/2025 Outside Orders [facility] General Surgery [address] [place] [address] Mindy Brandon PA Blood in stool (Primary Dx) 02/15/2025 2:10 PM EDT Ancillary Procedure [facility] Orthoped[facility] [address] [address] Lizz Hoang PA-C 02/15/2025 2:00 PM EDT Office Visit [address] [address] Lizz Hoang PA-C Recurrent left [...] Date Josue rded Speak language other than Maori at home Not on file 10/16/2023 Want [...] and dictated by Fernanda Montenegro MD Lizz SAUNDERS MRI ORDERABLES Final Re sult * XR [...] obvious evidence of acute osseous abnormality. Lizz [facility] KEM MOREJON Final Result from Last 3 Months Insurance [employer] [facility] Care Teams Job Spotter Relationship Specialty Start Date End Date Mindy Brandon PA [address] [place] [phone] PCP - General Physician Pinking Machine Operator 03/29/25
--- OUTSIDE RECORDS SUMMARY | 2025-05-16 22:28 | XMS_ITS | Encounter Summary ---
Author Organization [employer] ([place], [place], [place], [place]) Address [address] [place] [address] Care Team Providers Care Nutrition Partner Name Role Phone Lloyd Roberts MD Primary Care Provider [phone] Mindy Brandon Primary Care Provider Encounter Details Date Type Department Care Team (Late st Contact Info) Description 03/01/2019 Transcribed Document [facility] Family [facility] [place] [address] ProviderAlexander MD [address] [place] [id number] Social History Tobacco Use Types Packs/Day [...] & Psychosocial Habits Home/Environment 03/01/2019 Living situation: Homeless/Custodial Tobacco 03/01/2019 Smoking Status Former smoker, quit [...] Source Stated Height Entry Format Krysten Height/Length, [place] (ft) 5 ft Height/Length [place] 0 Inch CLINICALHEIGHT 152.4 cm [place] Body Weight 45.16 kg Weight Source, ED Critical estimated dosing weight Weight Entry Format [place] Weight Korean lb 190 lb CLINICALWEIGHT 86.36 kg Body [...] ED Adult Triage: ED Clinical Reconciliation: ED watch case polisher: Lactic Acid Level with Reflex if Indicated: [...] % 29.4 % Lymph # 1.96 x10(3)/uL [place] % 6.6 % [place] # 0.44 K/uL Eos % 0.7 % Eos # 0.05 x10(3)/uL Baso % 0.1 % Baso # 0.01 x10(3)/uL Slide Review No IG# 0.03 x10(3)/uL IG% 0.40 % Urine Type U CleanCatch Urine Color Yellow Urine Appearance Clear Urine Specific [place] 1.011 Urine pH Dipstick 5.5 LOW Urine Leukocyte Esterase Moderate Urine Nitrite Negative Urine Protein Dipstick Negative Urine Glucose Dipstick Negative Urine Ketones Dipstick Negative Urine Urobilinogen Dipstick 1.0 EU/dL Urine Bilirubin Dipstick Negative Urine Blood Dipstick Negative Ur WBC 0-2 /HPF Ur Bacteria Trace Ur Squamous Epithelial Cells 0-2 /HPF . Radiology results: Radiology Results (Last 48 hours) [id number] -- 03/01/2019 12:16 CT Abdomen Pelvis W [...] 14:35 EDT, Discharge to: Home. Prescriptions: Prescription Social Sciences Professor Pharmacy: Zofran ODT 4 mg oral tablet, [...] of instructions. Notes: I certify that the MLP/ELECTRO MECHANICAL ASSEMBLER performed the services as delegated. . Electronically signed by Brien, [facility] Conversion Boathouse Keeper Cerner at 01/15/2023 8:15 AM CDT documented in this encounter Plan of Treatment Not on file documented as of this encounter Visit Diagnoses Not on filedocumented in this encounter Care Teams Nutrition Partner Relationship Specialty Start Date End Date Lloyd Roberts MD [address] [place] [id number] PCP - General Family Medicine 09/26/22 03/28/25 Mindy Brandon PA [address] [place] [phone] PCP - General Physician Car Examiner 03/29/25 documented as of this encounter
--- OUTSIDE RECORDS SUMMARY | 2025-05-16 22:29 | XMS_ITS | Encounter Summary ---
Author Organization Healthcare Address [address] [place] [address] Care Team Providers Care Flatwork Finisher Hand Name Role Phone Gonzalo Guerin ANURAG Primary Care Provider [phone] Mindy Brandon Primary Care Provider [phone] Encounter Details Date Type Department Care Team (Late st Contact Info) Description 02/23/2025 Orders Only External Location [address] [place] [address] Arabella Davey APRN [address] [phone] Social History Tobacco Use Types Packs/Day Years Used Date Smoking Tobacco: Never Alcohol Use Standard Drinks/Week Comments No 0 (1 standard drink = 0.6 oz pur e alcohol) Comments Unknown Sex and Gender Information Value Date Recorded Sex Assigned at Not on file Legal Sex Female 8:00 PM EDT Gender Identity Not on file Sexual Orientation Not on file documented as of this encounter Plan of Treatment Not on file documented as of this encounter Procedures Procedure Name Priority Date/Time Associated Diagnosis Comments CT OUTSIDE IMAGES 02/23/2025 11:17 AM EDT documented in this encounter Results * CT OUTSIDE IMAGES (02/23/2025 11:17 AM EDT) Anatomical Region Laterality Modality Computed Tomogra phy 02/23/2025 11:1 7 AM EDT Arabella Davey STAMP MAKER IMG CT PROCEDURES Final Result documented in this encounter Visit Diagnoses Not on filedocumented in this encounter Care Teams Flatwork Finisher Hand Relationship Specialty Start Date End Date Gonzalo Guerin APRN [address] [address] PCP - General 02/08/21 05/04/25 Mindy Brandon PA [address] [place] [address] PCP - General 05/05/25 documented as of this encounter
[2025-05-16 23:17] LABS: Microscopic, Urine URINE MICROSCOPIC (MICROSCOPIC)
--- NOTE | 2025-05-16 23:22 | CT_ITS ---
PROCEDURE INFORMATION: Exam: CT Abdomen And Pelvis With Contrast Exam date and time: 05/17/2025 12:04 AM Age: 54 years old Clinical indication: Abdominal pain; Additional info: Flank pain UTI SX TECHNIQUE: Imaging protocol: Computed tomography of the abdomen and pelvis with contrast. Radiation optimization: All CT scans at this facility use at least one of these dose optimization techniques: automated exposure control; mA and/or kV adjustment per patient size (includes targeted exams where dose is matched to clinical indication); or iterative reconstruction. Contrast material: ISOVUE; Contrast volume: 75 ml; Contrast route: IV; COMPARISON: CT ABDOMEN PELVIS W CON 11/12/2023 1:01 PM FINDINGS: Lungs: Visualized lung bases demonstrate no acute abnormality. Liver: No focal liver lesion is identified. Gallbladder and biliary ducts: Post cholecystectomy. No significant bile duct dilation. Pancreas: No peripancreatic inflammatory change or significant pancreatic duct dilation. Spleen: No splenomegaly. Calcified splenic granulomas. Adrenal glands: The adrenal glands are unremarkable. Kidneys and ureters: The kidneys enhance symmetrically. No hydronephrosis. No renal perfusion defects or perinephric inflammation. Stable simple appearing renal cysts. No stones in the kidneys or ureters. Stomach and bowel: Small sliding gastric hiatal hernia. No gastric obstruction. No small bowel obstruction or acute inflammatory change. Diverticulosis of the colon without evidence of acute diverticulitis. The colon is not obstructed. Appendix: The appendix is identified. No evidence of acute appendicitis. Intraperitoneal space: No free fluid or free air. Vasculature: The abdominal aorta is nonaneurysmal. Lymph nodes: Unremarkable. No enlarged lymph nodes. Urinary bladder: No definite urinary bladder wall thickening accounting for incomplete distension. No surrounding inflammatory change. No gas in the lumen or wall. No stones. Reproductive: Post hysterectomy. Bones/joints: Roughly stable mild spinal degenerative changes. Soft tissues: Small wide mouth midline ventral hernia along the low anterior abdominal wall containing fat. A loop of small bowel approaches but does not enter the hernia. IMPRESSION: 1. No evidence of pyelonephritis or cystitis. 2. No stones in the kidneys, ureters or bladder. 3. Diverticulosis of the colon without evidence of acute diverticulitis.
[2025-05-16 23:28] LABS: Bilirubin,Urine Negative (Negative); Color,Urine YELLOW (Yellow); Glucose,Urine (UA) Negative (Negative); Ketones,Urine Negative (Negative); Leukocyte Esterase,Urine 1+ (Negative); PH,Urine 6.0 (5.0-8.5); Protein,Urine Negative (Negative); Specific Gravity, Urine 1.025 (1.005-1.030); Urobilinogen,Urine 0.2 EU/dl (0.2)
[2025-05-16 23:30] VITALS: BP 107/75; PULSE 86; O2SAT 95
[2025-05-16 23:37] LABS: Hematocrit 33.6 % (37.0-47.0); Hemoglobin 11.6 g/dL (12.2-16.2); Mean Corpuscular HGB Conc 34.5 g/dL (31.8-35.4); Mean Corpuscular Hemoglobin 27.8 pg (27.0-31.2); Mean Corpuscular Volume 80.4 fl (81-99); Platelet Count 235 K/mm3 (142-424); Red Blood Count 4.18 M/mm3 (4.20-5.40); White Blood Count 7.0 K/mm3 (4.8-10.8)
--- NOTE | 2025-05-16 23:43 | HMH.EDGENADL ---
Discharge Plan Disposition Patient Disposition: Home, Self-Care Condition: Good Prescriptions Prescriptions: New cefdinir 300 mg capsule 300 mg PO BID Qty: 13 0RF phenazopyridine 100 mg tablet 100 mg PO Q8H PRN (Reason: pain) Qty: 6 0RF No Action metoprolol succinate 50 mg tablet extended release 24 hr 50 mg PO DAILY sumatriptan succinate 100 mg tablet 100 mg PO NEEDED PRN (Reason: Headache) Patient Comments: TAKE 1 TABLET AT START OF HEADACHE. MAY TAKE ANOTHER TABLET IN 2 HOURS IF NEEDED. DO NOT TAKE MORE THAN 2 TABLETS IN 24 HOURS. amlodipine 5 mg tablet 5 mg PO DAILY Patient Comments: TAKE 1 TABLET 1 TIME EACH DAY aspirin 81 mg tablet,delayed release (DR/EC) 81 mg PO DAILY Patient Comments: TAKE 1 TABLET 1 TIME EACH DAY ropinirole 0.5 mg tablet 0.5 mg PO HS lisinopril-hydrochlorothiazide 20-25 mg tablet 1 tab PO DAILY hydroxyzine HCl 25 mg tablet 25 mg PO TID Patient Comments: TAKE 1 TABLET 3 TIMES EACH DAY NEEDED Referrals Follow up/Referrals: Mindy Brandon PA [Primary Care Provider, Medical] - See instructions Activity Restrictions/Add. Instructions Additional Instructions/Restrictions: You were evaluated in the ER and are believed to be appropriate for discharge at this time. Take Tylenol and ibuprofen if needed for pain, do not exceed the recommended dose on the bottle. Drink water and eat a small snack each time you take these medications to avoid side effects. Do not take ibuprofen for more than 5 days in a row. Make sure you are drinking plenty of water. Do not drink soda, pop, or or juices though you can drink 1 glass of cranberry juice a day or take a cranberry supplement. Take the prescribed antibiotics as directed, do not skip doses, do not stop taking them early. Take the prescribed phenazopyradine as directed. Follow-up with your primary care doctor for reevaluation in 2 to 3 days. Return to the ER with any new, worsening, or otherwise concerning symptoms Clinical Impressions Clinical Impression: Urinary tract infection, Flank pain Instructions Patient Instructions: DI for Urinary Tract Infection (UTI) Print Language Print Language: Egyptian Discharge ED Provider: Varun Grimaldo Adult [facility] General Chief complaint: Abdominal Pain Stated complaint: Possible Kidney Stone Time Seen by Provider: 08/19/25 23:23 Mode of Arrival: Ambulatory Source of Information: Patient Description of Symptoms (Recalled from ER Triage Doc. by RN): Patient has left flank pain that radiates over lower abdomen and to right side; has urinary burning; thinks she has a kidney stone History of Present Illness HPI narrative: 54-year-old female presents to the ER with 5 hours of abdominal pain, urinary burning, flank pain. Patient reports this evening she started having lower right abdominal pain that radiated into the bladder, burning with urination. She states she is now having radiation of the pain into her left low back and flank. Patient is worried about potential kidney stone though she has no history of these. She denies any blood in the urine. She states she had diarrhea yesterday, no fevers or chills. She has been nauseous and had a few episodes of nonbloody, nonbilious emesis. She took Tylenol prior to arrival. No chest pain, shortness of breath, headache, dizziness, numbness, tingling, weakness, no other associated symptoms. Related Data Home Medications ?Medication ?Instructions ?Recorded ?Confirmed amlodipine 5 mg tablet 5 mg PO DAILY 11/19/24 11/19/24 aspirin 81 mg tablet,delayed 81 mg PO DAILY 11/19/24 11/19/24 release hydroxyzine HCl 25 mg tablet 25 mg PO TID 11/19/24 11/19/24 lisinopril 20 1 tab PO DAILY 11/19/24 11/19/24 mg-hydrochlorothiazide 25 mg tablet metoprolol succinate 50 mg 50 mg PO DAILY 11/19/24 11/19/24 tablet,extended release 24 hr ropinirole 0.5 mg tablet 0.5 mg PO HS 11/19/24 11/19/24 sumatriptan succinate 100 mg tablet 100 mg PO NEEDED PRN Headache 11/19/24 11/19/24 Previous Rx's ?Medication ?Instructions ?Recorded cefdinir 300 mg capsule 300 mg PO BID #13 caps 05/17/25 phenazopyridine 100 mg tablet 100 mg PO Q8H PRN pain 6 doses #6 05/17/25 tabs Allergies Allergy/AdvReac Type Severity Reaction Status Date / Time ciprofloxacin (From Cipro) Allergy Hives Verified 11/19/24 18:06 vancomycin Allergy Hives Verified 11/19/24 18:06 [facility] Disclaimer: The information contained in this section may have been updated after the patient was seen, as this information can be updated by other users. Social History Smoking Status: Current every day smoker alcohol intake: never current occupational status: other Travel in the last 8 weeks?: None Have you lived/traveled outside US in past 30 days?: No Contact w/someone who lives/traveled outside US past 30 days?: No Exposure to someone with infectious disease in past 14 days?: No Do you have a fever (greater than 100.4 F or 38 C)?: No Have you tested positive for COVID-19?: No Exposed to someone with COVID-19 in past 14 days?: No Do you have a sore throat?: No Do you have a cough?: No Do you have any weakness?: No Do you have any diarrhea?: No Are you experiencing any unusual bleeding?: No Do you have any muscle aches/pain?: No Do you have any abdominal pain?: No Are you experiencing loss of taste or smell?: No ROS Obtained: Yes Systems reviewed as appropriate & no additional complaints except as documented Per HPI Physical Exam General General appearance: alert, in no apparent distress and obese Head Head exam: atraumatic and normocephalic Eye Eye exam: Present PERRL and EOMI ENT ENT exam: Present mucous membranes moist Neck Neck exam: Present normal inspection and full ROM Chest Chest inspection: Present symmetric chest wall rise Respiratory Respiratory exam: Present normal lung sounds bilaterally; Absent respiratory distress, wheezes or stridor Cardiovascular Cardiovascular exam: Present regular rate and normal rhythm Abdominal Exam Abdominal exam: Present soft and tenderness (Suprapubic, bilateral lower quadrants, mild to moderate); Absent distention, guarding or rebound Extremities Exam Extremities exam: Present full ROM Back Exam Back exam: Present full ROM; Absent tenderness, CVA tenderness (R) or CVA tenderness (L) Neurological Exam Neurological exam: Present alert and oriented X3; Absent motor sensory deficit Psychiatric Psychiatric exam: Present normal affect and normal mood Skin Skin exam: Present warm and dry Medical Decision Making Medical Records Medical records reviewed: Yes I reviewed the patient's medical records. Screening: Per USPSTF and CDC recommendations, given the prevalence of disease in our region, it is our hospital?s policy to screen for HIV and viral Hepatitis for all patients aged 18 and over and those with ongoing risk factors. Frank Inquiry Pt receiving controlled substance: No Vital Signs: 05/16/25 22:21 05/16/25 23:30 05/17/25 00:30 Temperature 97.9 F Temperature Source Oral Pulse Rate 86 77 Pulse Rate [Right Radial] 86 Respiratory Rate 16 Blood Pressure 107/75 L 110/70 Blood Pressure [Right Arm] 131/88 Blood Pressure Mean [Right Arm] 102 Blood Pressure Source [Right Arm] Automatic Cuff Blood Pressure Position [Right Arm] Supine 02 Sat by Pulse Oximetry 99 95 100 Oxygen Delivery Method Room Air 05/17/25 01:00 Temperature Temperature Source Pulse Rate 76 Pulse Rate [Right Radial] Respiratory Rate Blood Pressure 123/81 Blood Pressure [Right Arm] Blood Pressure Mean [Right Arm] Blood Pressure Source [Right Arm] Blood Pressure Position [Right Arm] 02 Sat by Pulse Oximetry 97 Oxygen Delivery Method Lab Data Lab Results 05/16/25 23:00: Urine Color Yellow, Urine Appearance Clear, Urine pH 6.0, Ur Specific [place] 1.025, Urine Protein Negative, Urine Glucose (UA) Negative, Urine Ketones Negative, Urine Blood Negative, Urine Nitrate Negative, Urine Bilirubin Negative, Urine Urobilinogen 0.2, Ur Leukocyte Esterase 1+ A, Urine WBC 10-20, Ur Squamous Epith Cells 20-50, Urine Bacteria 2+ 05/16/25 23:07: WBC 7.0, RBC 4.18 L, Hgb 11.6 L, Hct 33.6 L, MCV 80.4 L, MCH 27.8, MCHC 34.5, RDW 16.0, Plt Count 235, MPV 10.5 H, Neut % (Auto) 55.9, Lymph % (Auto) 35.1, [place] % (Auto) 8.0, Eos % (Auto) 0.4, Baso % (Auto) 0.3, Neut # (Auto) 3.9, Lymph # (Auto) 2.5, [place] # (Auto) 0.6, Eos # (Auto) 0.0, Baso # (Auto) 0.0, Total Counted 100, Neutrophils % (Manual) 52, Lymphocytes % (Manual) 35, Monocytes % (Manual) 13 H, Sodium 139, Potassium 3.6, Chloride 105, Carbon Dioxide 23, Anion Gap 14.6, BUN 23 H, Creatinine 1.20 H, Estimated Creat Clear 72, Estimated GFR 47 L, Est GFR ( Amer) 56 L, Glucose 86, Calcium 8.7, Total Bilirubin 1.2, AST 26, ALT 18, Alkaline Phosphatase 75, Total Protein 7.7, Albumin 4.6, Globulin 3.1, Albumin/Globulin Ratio 1.5, Lipase 96, Serum HCG, Qual Negative 05/16/25 23:07 05/16/25 23:07 Orders (Tests/Meds): ED MEDICATIONS Generic Name Dose Route Start Last Admin Trade Name Freq PRN Reason Stop Dose Admin Sodium Chloride 10 ml 05/17/25 00:08 05/17/25 00:09 Sodium Chloride 0.9% 10ml Syr (Rad Only) IV 06/16/25 00:07 10 ml NEEDED PRN Administration Maintain IV Site Discontinued Medications Generic Name Dose Route Start Last Admin Trade Name Freq PRN Reason Stop Dose Admin Cefdinir 300 mg 05/17/25 00:29 05/17/25 00:44 Cefdinir 300mg Capsule PO 05/17/25 00:30 300 mg ONCE ONE Administration Lactated Ringer's 1,000 mls @ 999 mls/hr 05/16/25 23:42 05/16/25 23:52 Lactated Ringer's 1000 Ml Bag IV 05/17/25 00:42 999 mls/hr .Q1H1M ONE Administration Iopamidol 75 ml 05/17/25 00:08 05/17/25 00:08 Iopamidol-370 (76%);100ml Bottle IV 05/17/25 00:09 75 ml ONCE ONE Administration Ketorolac Tromethamine 30 mg 05/16/25 23:42 05/16/25 23:52 Ketorolac 30mg/Ml Vial IV 05/16/25 23:43 30 mg ONCE ONE Administration Ondansetron HCl 4 mg 05/16/25 23:42 05/16/25 23:52 Ondansetron 4mg/2ml Vial IV 05/16/25 23:43 4 mg ONCE ONE Administration Oxycodone HCl 5 mg 05/17/25 00:53 05/17/25 00:59 Oxycodone 5mg Immediate Release Tablet PO 05/17/25 00:54 5 mg ONCE ONE Administration ORDERS Category Date Time Status CT abdomen pelvis w con Stat Cat Scan 05/16/25 23:22 Completed CBC Man Diff [Complete Blood Count Man Dif] Stat Lab 05/16/25 23:07 Completed Comprehensive Metabolic Panel Stat Lab 05/16/25 23:07 Completed HCG Qualitative, Serum Stat Lab 05/16/25 23:07 Completed Lipase Stat Lab 05/16/25 23:07 Completed UA [Urinalysis and Microscopic] Stat Lab 05/16/25 23:00 Completed Urine Culture Stat Micro 05/16/25 23:00 Received Medical Decision Narrative: In summary, this 54-year-old obese female with history of chest pains, diverticulosis, hypertension presents to the emergency department today with lower abdominal pain radiating to the left flank with painful urination. On initial evaluation patient is hemodynamically stable, afebrile, patient has tenderness in the suprapubic and bilateral lower quadrants without rebound or guarding, no peritonitic findings, no CVA tenderness, remainder of exam benign. Differential diagnosis includes but is not limited to urinary tract infection, pyelonephritis, nephrolithiasis, ureterolithiasis, hydronephrosis, appendicitis, diverticulosis, diverticulitis. Based on these concerns, I ordered serum labs, urine studies, CT imaging. Patient received Toradol, Zofran, IV fluids initially for treatment. Labs personally reviewed demonstrate no leukocytosis, anemia stable from prior based on my review of previous labs, normal platelets, hCG negative, UA contaminated with squamous cells but does have leukocyte esterase and bacteria, given her symptoms we will treat for UTI with cefdinir, CMP with mild kidney dysfunction stable from prior. CT abdomen pelvis first interpreted demonstrates no hydronephrosis or hydroureter, there is a calcification just adjacent to the left side of the bladder near the ureter which I am concerned may be a stone, radiology read pending. Patient still complaining of pain received oxycodone. I reviewed radiology read which does not comment on this calcification. I reached out to the reading radiologist and spoke to him by phone. Dr. Kang stated this is a phlebolith. He states it is also present on CT from 2023. He is confident this is not ureterolithiasis. I appreciate his interpretation. At this time patient is appropriate for discharge. I prescribed cefdinir and phenazopyridine for outpatient management of UTI and symptoms. She was given instructions on symptomatic monitoring and management, medication use, follow-up instructions, and strict return precautions for the ER. She indicated understanding and the patient was discharged in stable condition. Critical Care Critical Care Time Critical Care Time: No
[2025-05-16 23:45] LABS: HCG Qualitative, Serum Negative (Negative)
[2025-05-16 23:48] LABS: Alanine Aminotransferase 18 U/L (12-78); Albumin Level 4.6 g/dl (3.5-5.0); Albumin/Globulin Ratio 1.5 (1.1-1.8); Alkaline Phosphatase 75 U/L (38-126); Anion Gap 14.6 mEq/L (5-15); Aspartate Amino Transferase 26 U/L (14-36); Bilirubin,Total 1.2 mg/dl (0.2-1.3); Blood Urea Nitrogen 23 mg/dl (7-17); Calcium 8.7 mg/dl (8.4-10.2); Carbon Dioxide 23 mmol/L (22.0-30.0); Chloride 105 mmol/L (98-107); Creatinine Clearance Estimated 72 mL/min (50-200); Creatinine,Serum 1.20 mg/dl (0.52-1.04); Estimated Glomerular Filt Rate 47 ml/min (>60); GFR (African American) 56 ML/MIN (>60); Globulin 3.1 g/dL (1.3-3.2); Glucose 86 mg/dl (74-100); Lipase 96 U/L (23-300); Potassium 3.6 mmoL/L (3.5-5.1); Sodium 139 mmol/L (136-145); Total Protein,Serum 7.7 g/dl (6.3-8.2)
[2025-05-16] MEDS: KETOROLAC 30MG/ML VIAL 30 MG IV (23:52)
[2025-05-16] MEDS: ONDANSETRON 4MG/2ML VIAL 4 MG IV (23:52)
[2025-05-16] MEDS: LACTATED RINGERS 1000ML 1,000 ML 999 ML IV (23:52)
[2025-05-16 23:57] LABS: Bacteria,Urine 2+ /lpf; Squamous Epithelial Cell,Urine 20-50 #/hpf (0-5)
[2025-05-17] MEDS: IOPAMIDOL-370 (76%);100ML BOTTLE 75 ML IV (00:08)
[2025-05-17] MEDS: SODIUM CHLORIDE 0.9% 10ML SYR (RAD ONLY) 10 ML IV (00:09)
[2025-05-17 00:30] VITALS: BP 110/70; PULSE 77; O2SAT 100
[2025-05-17] MEDS: CEFDINIR 300MG CAPSULE 300 MG PO (00:44)
[2025-05-17] MEDS: OXYCODONE 5MG IMMEDIATE RELEASE TABLET 5 MG PO (00:59)
[2025-05-17 01:00] VITALS: BP 123/81; PULSE 76; O2SAT 97
[2025-05-17 01:06] LABS: Total Cells Counted 100
[2025-05-17 01:15] VITALS: BP 128/78; PULSE 80; RESP 16; TEMP 36.6; O2SAT 98
[2025-05-17 01:33] VITALS: BP 128/78; PULSE 80; RESP 18; TEMP 36.6; O2SAT 98
== END 2025-05-17 01:34 | disposition home or self-care (01) ==
PROVIDERS: Emergency Medicine; Emergency Provider Student in an Organized Health Care Education/Training Program; PCP Physician Assistant
DX: R10.32 Left lower quadrant pain (principal); N39.0 Urinary tract infection, site not specified; R30.0 Dysuria; R11.2 Nausea with vomiting, unspecified; M54.59 Other low back pain; F17.210 Nicotine dependence, cigarettes, uncomplicated
CPT/HCPCS: 74177; 80053; 81001; 83690; 84703; 85007; 85014; 85018; 85048; 85049; 87086; 96361; 96374; 96375; 99284; J1885; J2405; J7120; Q9967